=== PATIENT | female | born 1950 | race Caucasian/White ===

== ENCOUNTER → 2016-11-14 | Outpatient (CLI) | payer OTHER ==
--- NOTE | 2016-11-14 12:40 | CTL ---
EXAMINATION TYPE: CT Low Dose Lung DATE OF EXAM ORDERED: 11/14/2016 12:22 PM COMPARISON: None HISTORY: . Low Dose CT Lung Screening CT DLP: 60.[address] CTDI: 1.5 mGy IV CONTRAST USED: None. SCREENING VISIT: First visit COMPARISON: None. TECHNIQUE: Low dose computed tomography scan was performed through the chest at 1 millimeter thick se ctions and reconstructed images in the coronal plane at [address] DIAGNOSTIC QUALITY: Satisfactory FINDINGS: LUNG NODULES: There is a 5.5 mm partially solid nodule right upper lobe medially image 56. There is a lso a calcified nodule right upper lobe posteriorly image 75. Within the left lung there is a single nodule identified which is solid and measures 5.8 mm left lower lobe image 273. LUNGS: COPD: Severity: None Fibrosis: Severity:None Lymph nodes: None Right and left basilar scarring is noted. RIGHT PLEURAL SPACE: Effusion: None Calcification: None Thickening: None Pneumothorax: None LEFT PLEURAL SPACE: Effusion: None Calcification: None Thickening: None Pneumothorax: None HEART: Heart Size: Mildly enlarged Coronary calcification: Mild Pericardial effusion: None OTHER FINDINGS: Upper abdomen: No significant abnormality Bony thorax: Degenerative changes Supraclavicular region: No significant abnormalityOther: No significant abnormalityI IMPRESSION: Benign FOLLOW UP CT CHEST RECOMMENDATION: Follow-up screening in one year CT LUNG RAD: LUNG RAD CATEGORY category 2
== END | disposition home or self-care (01) ==
LOC: RADCTMAIN 11:50
PROVIDERS: ATTEND Family Medicine
DX: Z12.2 Encounter for screening for malignant neoplasm of respiratory organs (principal); Z87.891 Personal history of nicotine dependence

== ENCOUNTER 2017-04-27 09:55 | Observation (INO) | payer OTHER ==
[2017-04-27] MEDS ORDERED: ASPIRIN 325 MG TAB PO ONE (11:08)
[2017-04-27] MEDS ORDERED: IV FLUID CONTINUATION 750 ML IV ONE (11:08)
[2017-04-27] MEDS ORDERED: MIDAZOLAM 2 MG/2 ML VIAL IVP ONE (11:49)
[2017-04-27] MEDS: fentaNYL (PF) 50 MCG/ML 2 ML AMP IV ONE ×2 (11:49→12:00)
[2017-04-27] MEDS ORDERED: methylPREDNISolone SOD SUCCI 125 MG/2 ML VIAL IV ONE (11:50)
[2017-04-27] MEDS ORDERED: LIDOCAINE 2% INJ 20 MG/ML SQ ONE (11:56)
[2017-04-27] MEDS ORDERED: IOHEXOL 350 MG/ML 125ML BOTTLE INJ ONE (12:07)
[2017-04-27] MEDS ORDERED: RX INFO: IV CONTRAST WAS GIVEN 1 EACH MISC MISCELLANE PRN (12:21)
--- NOTE | 2017-04-27 12:27 | P.PCN ---
Date of Procedure: 04/27/17 Preoperative Diagnosis: Pains and left arm pain. Questionable stress test Postoperative Diagnosis: Normal coronary arteries Procedure(s) Performed: Left heart catheterization without left ventriculography Description of Procedure: HISTORY: This is a 66-year-old female who was admitted to [facility] because of recurrent chest pains. Patient had a nuclear stress test recently which was officially reported as showing TID which was significant with some fixed defects in anterior and inferior wall. Her chest pains. However appear to be clinically atypical and cardiac enzymes and EKGs were negative. Patient was advised to symptomatic medical therapy but is admitted to the hospital again with chest pain. A cardiac catheterization is suggested for definitive diagnosis. CONSENT:I have discussed the risks, benefits and alternative therapies for the above-mentioned procedure and for both sedation/analgesia as well as necessary blood product administration, if indicated, as they pertain to this patient. The patient has indicated understanding and acceptance of the risks and procedures discussed. [] PROCEDURE: Patient was brought to the lab in a fasting state. Patient was given some IV sedation. The right groin is infiltrated with lidocaine and right femoral artery was entered using Seldinger technique. A 6-Malay catheter was left in place and selective coronary arteriography and left ventriculography was performed. Patient tolerated the procedure well. Femoral angiogram was performed . Manual compression was recommended because of small size of the vessels. No immediate complications were noted and patient was transferred to [facility] in a stable condition Conscious Sedation: Versed : 1 mg Fentanyl : 75 g Duration : 20 minutes HEMODYNAMICS: Aortic pressure is about 130/70. Left ankle end-diastolic pressure is about 8-10. There was no gradient across the aortic valve SELECTIVE CORONARY ARTERIOGRAPHY: LEFT MAIN: Normal length and patent THE LEFT ANTERIOR DESCENDING CORONARY ARTERY: . Fairly caliber vessel giving rise to 2 diagonal and several septal branches. The LAD and its branches are free of occlusive disease THE LEFT CIRCUMFLEX AND IS CORONARY ARTERY: . This is a moderate caliber vessel giving rise good-sized OM branch. The circumflex and its branches are free of occlusive disease THE RIGHT CORONARY ARTERY: . This is a moderate caliber vessel and codominant and appears to be free of occlusive disease LEFT VENTRICULOGRAPHY: . Not performed FINAL IMPRESSION: , Normal coronary arteries PLAN: Maximum medical therapy and risk factor modification PROGNOSIS: . Good
[2017-04-27] MEDS ORDERED: SODIUM CHLORIDE 0.9% 1,000 ML IV SCH (12:30)
[2017-04-27] MEDS ORDERED: LIDOCAINE 5% PATCH TOPICAL SCH (13:45)
[2017-04-27 16:01] VITALS: BP 118/70; PULSE 78; RESP 18; TEMP 98.6
[2017-04-27] MEDS ORDERED: KETOROLAC 30 MG/ML 1 ML VIAL IVP ONE (18:00)
[2017-04-27] MEDS ORDERED: LORazepam 1 MG TAB PO ONE (18:00)
[2017-04-27 19:56] LABS: Glucose,Whole Blood 160 mg/dL (75-99)
== END 2017-04-27 20:17 | disposition home or self-care (01) ==
LOC: 6SEL 11:01 → INTOOBSV 11:01 → 6SEL 14:29
PROVIDERS: ADMIT Family Medicine; ATTEND Family Medicine
DX: R07.89 Other chest pain (principal); K55.1 Chronic vascular disorders of intestine; Q23.2 Congenital mitral stenosis; M79.602 Pain in left arm; F32.9 Major depressive disorder, single episode, unspecified; M79.7 Fibromyalgia; F41.1 Generalized anxiety disorder; F17.200 Nicotine dependence, unspecified, uncomplicated; J30.2 Other seasonal allergic rhinitis; Z90.49 Acquired absence of other specified parts of digestive tract; Z90.710 Acquired absence of both cervix and uterus; Z88.6 Allergy status to analgesic agent; Z88.0 Allergy status to penicillin; Z88.8 Allergy status to other drugs, medicaments and biological substances
CPT/HCPCS: 99152; 93458; G0379; G0378; C1894; C1769; J2001; J2250; J2930; J3010; J1885; Q9967

== ENCOUNTER → 2017-10-29 | Outpatient (CLI) | payer MEDICARE, OTHER ==
[2017-10-25 10:46] VITALS: BMI 23.1
[2017-10-29 14:06] VITALS: BP 131/82; PULSE 86; RESP 16
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
== END | disposition home or self-care (01) ==
LOC: PNWHC3 12:20
PROVIDERS: ATTEND Specialist
DX: G89.29 Other chronic pain (principal); M54.5 Low back pain; M51.36 Other intervertebral disc degeneration, lumbar region; M46.1 Sacroiliitis, not elsewhere classified; M46.86 Other specified inflammatory spondylopathies, lumbar region; M79.7 Fibromyalgia; J30.1 Allergic rhinitis due to pollen; K21.9 Gastro-esophageal reflux disease without esophagitis; Z90.710 Acquired absence of both cervix and uterus; Z98.890 Other specified postprocedural states; Z87.891 Personal history of nicotine dependence; Z79.82 Long term (current) use of aspirin; Z79.1 Long term (current) use of non-steroidal anti-inflammatories (NSAID); Z79.899 Other long term (current) drug therapy; Z79.891 Long term (current) use of opiate analgesic; Z88.5 Allergy status to narcotic agent; Z88.0 Allergy status to penicillin; Z88.8 Allergy status to other drugs, medicaments and biological substances; Z77.120 Contact with and (suspected) exposure to mold (toxic); Z91.018 Allergy to other foods; Z91.041 Radiographic dye allergy status; Z90.49 Acquired absence of other specified parts of digestive tract
CPT/HCPCS: 99211

== ENCOUNTER → 2017-10-29 | Outpatient (CLI) | payer MEDICARE, OTHER ==
[2017-10-29 12:34] LABS: Basophils % (A) 0 %; Eosinophils # (A) 1.3 k/uL (0-0.7); Eosinophils % (A) 16 %; HCT 40.8 % (34.0-46.0); HGB 13.9 gm/dL (11.4-16.0); Lymphocytes # (A) 3.1 k/uL (1.0-4.8); Lymphocytes % (A) 37 %; MCH 32.4 pg (25.0-35.0); MCHC 34.1 g/dL (31.0-37.0); Mean Platelet Volume 7.3; Monocytes # (A) 0.4 k/uL (0-1.0); Monocytes % (A) 5 %; Neutrophils # (A) 3.3 k/uL (1.3-7.7); Neutrophils % (A) 40 %; Platelet Count 254 k/uL (150-450); RBC 4.29 m/uL (3.80-5.40); RDW 13.7 % (11.5-15.5); WBC 8.3 k/uL (3.8-10.6)
[2017-10-29 12:43] LABS: ALT 17 U/L (9-52); AST 16 U/L (14-36); Alkaline Phosphatase 96 U/L (38-126); Anion Gap 13 mmol/L; Bilirubin, Delta 0.3 mg/dL (0.0-0.2); Blood Urea Nitrogen 14 mg/dL (7-17); Carbon Dioxide 25 mmol/L (22-30); Chloride 106 mmol/L (98-107); Potassium 4.5 mmol/L (3.5-5.1); Sodium 144 mmol/L (137-145); Total Bilirubin 0.3 mg/dL (0.2-1.3)
[2017-10-29 12:59] LABS: T4, Free (Free Thyroxine) 0.91 ng/dL (0.78-2.19)
== END | disposition home or self-care (01) ==
LOC: LABWHC1 11:51
PROVIDERS: ATTEND Nurse Practitioner Family
DX: Z51.81 Encounter for therapeutic drug level monitoring (principal); Z79.899 Other long term (current) drug therapy
CPT/HCPCS: 36415; 80051; 80076; 82565; 84439; 84443; 84520; 85025

== ENCOUNTER 2017-12-07 06:58 | Day surgery (SDC) | payer MEDICARE, OTHER ==
[2017-12-04 16:56] VITALS: BMI 22.6
[~2017-12-07 06:58] MED LIST: LACTATED RINGERS 1,000 ML IV SCH; LIDOCAINE 1% 20 ML VIAL (10MG/ML) FOR IV START INTRADERMA PRN
[2017-12-07 07:40] VITALS: TEMP 98.5
[2017-12-07] MEDS ORDERED: ONDANSETRON 4 MG/2 ML VIAL IVP ONE (08:18)
[2017-12-07] MEDS ORDERED: MIDAZOLAM 2 MG/2 ML VIAL IVP ONE (08:19)
[2017-12-07] MEDS ORDERED: LIDOCAINE 1% INJ 10MG/ML (20 ML MDV) ONE (08:46)
[2017-12-07] MEDS ORDERED: PROPOFOL 10 MG/ML 20 ML VIAL IV ONE (08:46)
--- NOTE | 2017-12-07 08:49 | P.GSHP ---
History of Present Illness H&P Date: 12/07/17 Chief Complaint: Screening Patient here today for colonoscopy. Last colonoscopy about 5 years ago. She says she had polyps in the past. No family history of colon cancer. She has chronic history with intermittent diarrhea and constipation. Past Medical History Past Medical History: Chest Pain / Angina, Fibromyalgia, GERD/Reflux, Osteoarthritis (OA) Additional Past Medical History / Comment(s): "PALPITATIONS,DIVERTICULITIS,IBS, "SUPERIOR MESENTARY ARTERY SYNDROME",MS, LT EYE MAC DEGENERATION, ASTHMA CHILD, VIT D DEFICIENCY, MIGRAINES, OSTEOPOROSIS, PSORIASES ON BOTTOM OF FEET, SEASONAL ALLERGIES, PULMONARY NODULES JUST RECENTLY FOUND History of Any Multi-Drug Resistant Organisms: None Reported Past Surgical History: Appendectomy, Breast Surgery, Cholecystectomy, Heart Catheterization, Hysterectomy Additional Past Surgical History / Comment(s): LT BREAST BX-NEG, COLONOSCOPY/ POLYPECTOMY-BENIGN, EGD AND 04-27-17 HEART CATH. Past Anesthesia/Blood Transfusion Reactions: Motion Sickness, Postoperative Nausea & Vomiting (PONV) Additional Past Anesthesia/Blood Transfusion Reaction / Comment(s): CLAUSTROPHOBIA Smoking Status: Former smoker - Past Family History Mother Family Medical History: Congestive Heart Failure (CHF) Additional Family Medical History / Comment(s): MURMUR Father Family Medical History: Myocardial Infarction ([place]) Medications and Allergies Home Medications Medication Instructions Recorded Confirmed Type ARIPiprazole [Abilify] 2 mg PO HS 04/27/17 12/04/17 History Amitriptyline HCl [Elavil] 75 mg PO HS 04/27/17 12/04/17 History Ibuprofen [Motrin] 300 mg PO Q8HR PRN 04/27/17 12/07/17 History LORazepam [Ativan] 1 mg PO TID 04/27/17 12/04/17 History Loratadine [Claritin] 10 mg PO DAILY 04/27/17 12/04/17 History Aspirin EC [Ecotrin Low Dose] 81 mg PO DAILY 10/25/17 12/04/17 History Pantoprazole Sodium [Protonix] 20 mg PO DAILY 10/25/17 12/04/17 History diphenhydrAMINE [Benadryl] 25 mg PO DAILY PRN 10/25/17 12/07/17 History Allergies Allergy/AdvReac Type Severity Reaction Status Date / Time acetaminophen [From Vicodin] Allergy Rash/Hives Verified 12/07/17 07:28 banana Allergy Rash/Hives Verified 12/07/17 07:28 codeine Allergy Nausea & Verified 12/07/17 07:28 Vomiting, Rash/Hives grass pollen Allergy Unknown Verified 12/07/17 07:28 hydrocodone [From Vicodin] Allergy Rash/Hives Verified 12/07/17 07:28 hydromorphone [From Dilaudid] Allergy Rash/Hives Verified 12/07/17 07:28 Iodinated Contrast- Oral and Allergy Anaphylaxis Verified 12/07/17 07:28 IV Dye Iodine and Iodide Containing Allergy GI BLEEDING Verified 12/07/17 07:28 Produc mold Allergy Rash/Hives Verified 12/07/17 07:28 morphine Allergy Rash/Hives Verified 12/07/17 07:28 Penicillins Allergy Rash/Hives Verified 12/07/17 07:28 prednisone Allergy Rash/Hives Verified 12/07/17 07:28 ragweed pollen Allergy Rash/Hives Verified 12/07/17 07:28 tree and shrub pollen Allergy Rash/Hives Verified 12/07/17 07:28 Surgical - Exam Vital Signs Temp Pulse Resp BP Pulse Ox 98.5 F 97 18 144/66 100 12/07/17 07:24 12/07/17 07:24 12/07/17 07:24 12/07/17 07:24 12/07/17 07:24 Physical exam: General: Well-developed, well-nourished HEENT: Normocephalic, sclerae nonicteric Abdomen: Nontender, nondistended Extremities: No edema Neuro: Alert and oriented Assessment and Plan (1) Colon cancer screening Narrative/Plan: Will proceed with colonoscopy at this time. Current Visit: Yes Status: Acute Code(s): Z12.11 - ENCOUNTER FOR SCREENING FOR MALIGNANT NEOPLASM OF COLON SNOMED Code(s): 206045579
--- NOTE | 2017-12-07 09:05 | P.PCN ---
Date of Procedure: 12/07/17 Procedure(s) Performed: PREOPERATIVE DIAGNOSIS: Colon cancer screening, history of polyps POSTOPERATIVE DIAGNOSIS: Normal exam PROCEDURE: Colonoscopy ANESTHESIA: MAC SURGEON: Yan Young M.D. SPECIMENS: None ENDOSCOPIC PROCEDURE: The patient was placed on the endoscopy table in the left decubitus position. The Olympus colonoscope was inserted into the anus and passed under direct visualization to the base of the cecum. The appendiceal orifice was visualized. From that point the scope was slowly withdrawn inspecting all surfaces carefully. There were no neoplastic inflammatory or polypoid lesions throughout the cecum, ascending, transverse, descending, sigmoid and rectum. There was no diverticulosis noted. Digital rectal examination was normal. The patient was taken to the recovery room in stable condition per anesthesia guidelines. RECOMMENDATIONS: Increase fiber. Follow-up colonoscopy 5 years
[2017-12-07 09:10] VITALS: RESP 16
[2017-12-07 09:36] VITALS: BP 137/69; PULSE 74
== END 2017-12-07 09:53 | disposition home or self-care (01) ==
LOC: ORWHC2ENDO 06:58
PROVIDERS: ATTEND Surgery
DX: Z12.11 Encounter for screening for malignant neoplasm of colon (principal); M19.90 Unspecified osteoarthritis, unspecified site; M79.7 Fibromyalgia; K21.9 Gastro-esophageal reflux disease without esophagitis; K58.0 Irritable bowel syndrome with diarrhea; J45.909 Unspecified asthma, uncomplicated; Z79.82 Long term (current) use of aspirin; Z87.891 Personal history of nicotine dependence; Z88.0 Allergy status to penicillin; Z88.5 Allergy status to narcotic agent; I25.2 Old myocardial infarction; I25.10 Atherosclerotic heart disease of native coronary artery without angina pectoris; L40.9 Psoriasis, unspecified; Z82.49 Family history of ischemic heart disease and other diseases of the circulatory system; Z79.899 Other long term (current) drug therapy; Z91.041 Radiographic dye allergy status; Z91.010 Allergy to peanuts; Z88.8 Allergy status to other drugs, medicaments and biological substances; Z90.49 Acquired absence of other specified parts of digestive tract; Z91.018 Allergy to other foods; Z91.048 Other nonmedicinal substance allergy status; Z91.09 Other allergy status, other than to drugs and biological substances
CPT/HCPCS: J2250; J2405; J2001; J2704; G0105; 45378

== ENCOUNTER → 2018-01-03 | Outpatient (CLI) | payer MEDICARE, OTHER ==
--- NOTE | 2018-01-07 11:05 | MM ---
Reason for exam: screening (asymptomatic). Last mammogram was performed 6 years and 8 months ago. History: Patient is postmenopausal. Benign excisional biopsy of the left breast, April 2005. Physical Findings: A clinical breast exam by your physician is recommended on an annual basis and results should be correlated with mammographic findings. MG 3D Screening Mammo W/Cad Bilateral CC and MLO view(s) were taken. Prior study comparison: November 03, 2016, mammogram, performed at [facility], [place]. May 10, 2011, bilateral digital screening mammo w/CAD. October 19, 2009, bilateral digital screening mammogram. The breast tissue is heterogeneously dense. This may lower the sensitivity of mammography. There are enlarging anterior depth right upper outer quadrants masses (x 2). No suspicious abnormality in the left breast. ASSESSMENT: Incomplete: need additional imaging evaluation, BI-RAD 0 RECOMMENDATION: Ultrasound of both breasts. (right upper outer quadrant and left at location of pain) [facility] will attempt to contact patient to return for ultrasound.
== END | disposition home or self-care (01) ==
LOC: RADMAMWWP 13:00
PROVIDERS: ATTEND Family Medicine
DX: Z12.31 Encounter for screening mammogram for malignant neoplasm of breast (principal)
CPT/HCPCS: 77063; 77067

== ENCOUNTER → 2018-01-09 | Outpatient (CLI) | payer MEDICARE, OTHER ==
--- NOTE | 2018-01-09 15:02 | P.PN ---
Progress Note - Text Progress Note Date: 01/09/18 Patient returns for followup for chronic back pain with radiation to thoracic and C-spine. Patient continues on only OTC medications for pain with some relief. Patient denies adverse drug effects from medications. Today, pt denies new-onset weakness, bowel/bladder incontinence, or any other signs or symptoms of cauda equina syndrome. There are no signs of acute intoxication, and no indications of medication diversion or overuse. In addition to above, 13-point review of systems is also negative for chest pain , shortness of breath, changes in vision, changes in hearing, new onset weakness , abdominal pain, diarrhea, extreme fatigue, malaise, fever, skin changes, homicidal or suicidal ideation, or bowel or bladder incontinence. Vital Signs: Reviewed in EMR Gen: WDWN, AAOx3, NAD HEENT: NCAT, EOMI, hearing grossly normal Pulm: resp unlabored Abd: soft, NT, ND Neck: supple, trachea midline ROM in flexion lumbar spine: reduced ROM in extension lumbar spine: reduced Lumbar paravertebral tenderness: + Facet loading: + bilateral SI joint tenderness: + L > R Garret's test: neg Straight leg raise: neg Imaging: Reviewed in EMR Assessment: 1. lumbar spondylosis without myelopathy 2. chronic pain syndrome Plan: 1. Explanation: Opioid and psychological risk scores were reviewed. Diagnoses , prognoses, and multiple treatment options including but not limited to physical therapy, interventional therapies, adjuvant medical therapies, narcotic medication therapies, and surgery were discussed with the patient and all questions were answered to the patient's satisfaction. 2. Opioid agreement: no opioids prescribed today 3. Counseling: The patient was counseled extensively on BODY MASS INDEX, EXERCISE. Specifically, the patient was instructed regarding the importance of weight control, and exercise in the context of both chronic pain and overall health. 4. Procedures: bilateral lumbar MBB L3-S1 5. Consultations: None 6. Investigations: MAPS queried and appropriate 7. Medications: none prescribed 8. Morphine equivalents per day prescribed: zero 9. Disposition: f/u for procedure as scheduled PQRS measures: 1-Patient's medications are documented in the chart. 2-Tobacco use is negative 3-Patient has not had a pneumococcal vaccine. 4-Advanced care planning discussed, patient unable to give. 5-Opioid contract NOT signed with the patient. 6-Pain positive, follow-up visit or procedure scheduled 7-Patient's blood pressure measured and documented, and patient will follow up with the primary care due to hypertension. 8-Patient's weight was measured, and body mass index ABOVE the normal limits, and counseling was done. Patient instructed to follow up with PCP. 9-Patient WAS NOT identified as an unhealthy alcohol user.
== END | disposition home or self-care (01) ==
LOC: PNWHC3 14:07
PROVIDERS: ATTEND Anesthesiology
DX: G89.4 Chronic pain syndrome (principal); M54.9 Dorsalgia, unspecified; M47.816 Spondylosis without myelopathy or radiculopathy, lumbar region; Z79.891 Long term (current) use of opiate analgesic
CPT/HCPCS: 99211

== ENCOUNTER → 2018-01-09 | Outpatient (CLI) | payer MEDICARE, OTHER ==
--- NOTE | 2018-01-10 10:57 | USB ---
Reason for exam: additional evaluation requested from abnormal screening. History: Patient is postmenopausal. Benign excisional biopsy of the left breast, April 2005. Physical Findings: Nurse did not find any significant physical abnormalities on exam. US Breast Workup Limited GIOVANNI Right limited breast ultrasound including focal area of concern, retroareolar and axilla demonstrates a 0.7 x 0.4 x 0.8cm cystic lesion at 10 o'clock corresponds to the more inferior mammographic finding. Left limited breast ultrasound including focal area of concern, retroareolar and axilla demonstrates no cystic or solid lesion seen. These results were verbally communicated with the patient and result sheet given to the patient on 01/09/18. ASSESSMENT: Benign, BI-RAD 2 RECOMMENDATION: Return to routine screening mammogram schedule for both breasts. Manage on a clinical basis with regard to left breast pain.
== END | disposition home or self-care (01) ==
LOC: RADUSWWP 15:08
PROVIDERS: ATTEND Family Medicine
DX: R92.8 Other abnormal and inconclusive findings on diagnostic imaging of breast (principal)

== ENCOUNTER 2018-01-21 09:04 | Day surgery (SDC) | payer MEDICARE, OTHER ==
[2018-01-15 17:03] VITALS: BMI 22.6
[~2018-01-21 09:04] MED LIST changes: -LIDOCAINE 1% 20 ML VIAL (10MG/ML) FOR IV START INTRADERMA PRN
[2018-01-21] MEDS ORDERED: LACTATED RINGERS 1,000 ML IV ONE (09:41)
[2018-01-21 09:48] VITALS: RESP 18; TEMP 98
[2018-01-21] MEDS ORDERED: LIDOCAINE 1% 20 ML VIAL (10MG/ML) FOR IV START INTRADERMA ONE (09:53)
--- NOTE | 2018-01-21 10:38 | P.PCN ---
Date of Procedure: 01/21/18 Surgeon: Declan Messer Description of Procedure: PREOPERATIVE DIAGNOSIS : Lumbar spondylosis with Facet Arthropathy without myelopathy POSTOPERATIVE DIAGNOSIS: same PROCEDURE: Diagnostic lumbar medial branch block with fluoroscopy at bilateral L4, L5, sacral ala ANESTHESIA: Local anesthetic; conscious sedation with 2 mg midazolam 100 g of fentanyl Surgeon: Declan Messer MD PROCEDURE INDICATION: Chronic low back pain secondary to Facet arthropathy unresponsive to conservative treatment. This is a pleasant 67-year-old woman with a history of bilateral intractable low back pain secondary to lumbar spondylosis. She presents today for her first diagnostic lumbar medial branch nerve block. PROCEDURE DESCRIPTION: the patient was seen and identified in the preop holding area , risks and benefits and possible complications of the procedure and alternative were discussed with the patient, and the patient agreed to proceed with the procedure and signed the consent IV was started and vital signs monitored during the procedure and fluoroscopy was used to maximize the benefit and accuracy of the needle placement, and sedation was given to decrease patient anxiety, patient was taken to the procedure room and placed in prone position vital signs monitored in the back prepped. Under strict sterile technique using a right oblique fluoroscopy ,the junction of the transverse process and the superior articulating process of the [] L3- 4 , L4- 5, and L5-S1 vertebra which corresponding to the fluoroscopy image of the eye of the Everette dog on the block side for the medial branches and subsequently , after local infiltration of skin and subcutaneous tissues with lidocaine 1% one mL at each level ,then one 25-gauge Quincke-type needles was placed at the junction of the base of the transverse process and the superior articular process at the appropriate level, and the needle was advanced until the periosteum contacted, needle placement confirmed with AP oblique and lateral view and after appropriate needle placement confirmed, and after negative aspiration, 0.5 mL of Marcaine 0.5% mixed with 40 mg depomedrol in divided doses was injected at each level and the needle subsequently removed []. At the end of the procedure and the needles removed and a bandage applied after the skin was cleaned the cleaning solution patient taken to recovery room in stable condition and monitors in the recovery room for 20-30 minutes and discharged home in stable condition after discharge criteria met and patient will follow up with the pain clinic in 2-4 weeks EBL: Minimal COMPLICATION: None.
[2018-01-21] MEDS ORDERED: IV FLUID CONTINUATION 1,000 ML IV ONE (10:48)
--- NOTE | 2018-01-21 11:54 | FL ---
Fluoroscopy INDICATION: Pain FINDINGS: Fluoroscopy time: 1 seconds. Images obtained: 1. IMPRESSIONS: 1. Documentation of fluoroscopy.
[2018-01-21] MEDS ORDERED: diphenhydrAMINE 50 MG/ML 1 ML VIAL IVP ONE (12:01)
[2018-01-21 12:08] VITALS: BP 133/82; PULSE 77
== END 2018-01-21 12:11 | disposition home or self-care (01) ==
LOC: ORPAIN 09:04
PROVIDERS: ATTEND Pain Medicine Pain Medicine
DX: M47.816 Spondylosis without myelopathy or radiculopathy, lumbar region (principal); G89.4 Chronic pain syndrome; Z79.899 Other long term (current) drug therapy
CPT/HCPCS: 64493; 64494; J2250; J1200; J1030; J3010

== ENCOUNTER 2018-02-05 08:52 | Day surgery (SDC) | payer MEDICARE, OTHER ==
[2018-01-31 09:00] VITALS: BMI 22.6
[2018-02-05 10:02] VITALS: RESP 18; TEMP 98.1
[2018-02-05] MEDS ORDERED: LIDOCAINE 1% 20 ML VIAL (10MG/ML) FOR IV START INTRADERMA ONE (10:03)
[2018-02-05] MEDS ORDERED: ONDANSETRON 4 MG/2 ML VIAL ONE (11:29)
[2018-02-05] MEDS ORDERED: ONDANSETRON 4 MG/2 ML VIAL IVP ONE (11:31)
--- NOTE | 2018-02-05 11:54 | P.PCN ---
Date of Procedure: 02/05/18 Procedure(s) Performed: PREOPERATIVE DIAGNOSIS :1-Lumbar spondylosis with Facet Arthropathy without myelopathy . 2- Lumber degenerative disc disease. 3-sacroiliitis POSTOPERATIVE DIAGNOSIS= same as preoperative diagnosis. PROCEDURE: Diagnostic bilateral L3 -4 , L4 -5 , and L5-S1 medial branch block under fluoroscopy ANESTHESIA: Local with 1% lidocaine 6 ml , moderate sedation with intravenous Versed 2 mg and Fentanyl 100 mcg. EBL: Minimal COMPLICATION: None. IV FLUIDS: 100 mL of normal saline. PROCEDURE INDICATION: Chronic low back pain secondary to Facet arthropathy unresponsive to conservative treatment. PROCEDURE DESCRIPTION: the patient was seen and identified in the preop holding area , risks and benefits and possible complications of the procedure and alternative were discussed with the patient, and the patient agreed to proceed with the procedure and signed the consent IV was started and vital signs monitored during the procedure and fluoroscopy was used to maximize the benefit and accuracy of the needle placement, and sedation was given to decrease patient anxiety, patient was taken to the procedure room and placed in prone position vital signs monitored in the back prepped with chlorhexidine X3 then under strict sterile technique using a right oblique fluoroscopy ,the junction of the transverse process and the superior articulating process of the right L3- 4 , L4- 5, and L5-S1 vertebra which corresponding to the fluoroscopy image of the eye of the Everette dog on the block side for the medial branches and subsequently , after local infiltration of skin and subcu tissuies with lidocaine 1% one mL at each level ,then 22- gauge Quincke-type needles , 3 needle was used , each one of them placed at the junction of the base of the transverse process and the superior articular process at the appropriate level, and the needle was advanced until the periosteum contacted, needle placement confirmed with AP oblique and lateral view and after appropriate needle placement confirmed, and after negative aspiration for heme and CSF and there was no paresthesia 1-1/2 mL of Marcaine 0.5% mixed with 40 mg Kenalog , then half mL injected at each level after negative aspiration the needle subsequently removed and the same procedure repeated for the left side at left side at L3-4, L4- 5 and L5-S1 levels. At the end of the procedure and the needles removed and a bandage applied after the skin was cleaned the cleaning solution patient taken to recovery room in stable condition and monitors in the recovery room for 20-30 minutes and discharged home in stable condition after discharge criteria met and patient will follow up with the pain clinic in 2-4 weeks
[2018-02-05] MEDS ORDERED: diphenhydrAMINE 50 MG/ML 1 ML VIAL IVP ONE (12:05)
[2018-02-05] MEDS ORDERED: IV FLUID CONTINUATION 1,000 ML IV ONE (12:16)
[2018-02-05 12:21] VITALS: BP 135/72; PULSE 77
--- NOTE | 2018-02-05 12:52 | FL ---
EXAMINATION TYPE: FL guided pain mgmt statistic DATE OF EXAM: 02/05/2018 CLINICAL HISTORY: Low back pain. TECHNIQUE: Fluoroscopy. COMPARISON: None. FINDINGS: Fluoroscopic guidance was provided during pain relief procedure performed by Dr. Flores . A total of 7 seconds of fluoroscopic time was utilized during the procedure and 4 spot images are acquired. Images acquired shows needle localization at multiple levels bilaterally in the lower lumb ar spine. IMPRESSION: As Above.
== END 2018-02-05 12:30 | disposition home or self-care (01) ==
LOC: ORPAIN 08:52
PROVIDERS: ATTEND Specialist
DX: G89.29 Other chronic pain (principal); M47.816 Spondylosis without myelopathy or radiculopathy, lumbar region; M51.36 Other intervertebral disc degeneration, lumbar region; M46.1 Sacroiliitis, not elsewhere classified; R00.2 Palpitations; J45.909 Unspecified asthma, uncomplicated; K21.9 Gastro-esophageal reflux disease without esophagitis
CPT/HCPCS: 64493; 64494; 64495; J2250; J3301; J2405; J3010; 99152

== ENCOUNTER → 2018-02-28 | Outpatient (CLI) | payer MEDICARE, OTHER ==
[2018-02-28 15:45] VITALS: BP 138/64; PULSE 86; RESP 16
--- NOTE | 2018-02-28 16:00 | P.PN ---
Subjective Progress Note Date: 02/28/18 This is a 67-year-old female with lower back pain with occasional radiation to the left knee and occasional numbness and tingling in the legs. The patient denies any bowel or bladder dysfunction or any weakness in the lower extremities. She had 75% of pain relief after the diagnostic medial branch blocks that she received. In addition to above, 13-point review of systems is also negative for chest pain , shortness of breath, changes in vision, changes in hearing, new onset weakness , abdominal pain, diarrhea, extreme fatigue, malaise, fever, skin changes, homicidal or suicidal ideation, or bowel or bladder incontinence. Vital Signs: Reviewed in EMR Gen: WDWN, AAOx3, NAD HEENT: NCAT, hearing grossly normal Pulm: resp unlabored Neck: supple, trachea midline ROM in flexion lumbar spine: reduced ROM in extension lumbar spine: reduced Lumbar paravertebral tenderness: + Facet loading: + bilateral Neuro exam of the lower extremities showed normal muscle strength and normal and symmetrical deep tendon reflexes. Straight leg raise: neg Imaging: Reviewed in EMR Assessment: 1. lumbar spondylosis without myelopathy 2. chronic pain syndrome Plan: 1. Explanation: Opioid and psychological risk scores were reviewed. Diagnoses , prognoses, and multiple treatment options including but not limited to physical therapy, interventional therapies, adjuvant medical therapies, narcotic medication therapies, and surgery were discussed with the patient and all questions were answered to the patient's satisfaction. 2. Opioid agreement: no opioids prescribed today 3. Counseling: The patient was counseled extensively on BODY MASS INDEX, EXERCISE. Specifically, the patient was instructed regarding the importance of weight control, and exercise in the context of both chronic pain and overall health. 4. Procedures: Left lumbar medial branch RFA for L3 4, L4-L5, and L5-S1 levels 5. Consultations: None 6. Investigations: MAPS queried and appropriate 7. Medications: none prescribed 8. Morphine equivalents per day prescribed: zero 9. Disposition: f/u for procedure as scheduled Objective - Vital Signs Vital signs: Vital Signs Temp Pulse 86 02/28/18 15:35 Resp 16 02/28/18 15:35 BP 138/64 02/28/18 15:35 Pulse Ox Intake & Output 02/27/18 02/28/18 02/28/18 18:59 06:59 18:59 Weight 63.503 kg
--- NOTE | 2018-02-28 16:28 | XR ---
EXAMINATION TYPE: XR abdomen 1V DATE OF EXAM: 02/28/2018 COMPARISON: 08/12/2013 INDICATION: Left lower quadrant pain TECHNIQUE: Single view abdomen supine view FINDINGS: There is a normal bowel gas pattern. Psoas margins are normal. No organomegaly is present. Cholecystectomy clips are present. Fecal debris is within the colon. IMPRESSION: 1. Unremarkable Abdomen
== END | disposition home or self-care (01) ==
LOC: PNWHC3 13:09
PROVIDERS: ATTEND Anesthesiology
DX: G89.4 Chronic pain syndrome (principal); M47.816 Spondylosis without myelopathy or radiculopathy, lumbar region; R10.32 Left lower quadrant pain
CPT/HCPCS: 74018; G0463; 99211

== ENCOUNTER → 2018-03-14 | Day surgery (SDC) | payer MEDICARE, OTHER ==
[2018-03-07 11:10] VITALS: BMI 22.6
[~2018-03-14] MED LIST changes: +IV FLUID CONTINUATION 1,000 ML IV ONE; +LIDOCAINE 1% 20 ML VIAL (10MG/ML) FOR IV START INTRADERMA ONE; +diphenhydrAMINE 50 MG/ML 1 ML VIAL IVP ONE
[2018-03-14 09:22] VITALS: TEMP 98.1
--- NOTE | 2018-03-14 10:29 | P.PCN ---
Date of Procedure: 03/14/18 Procedure(s) Performed: PREOPERATIVE DIAGNOSIS: 1-Lumbar Spondylosis with Facet Arthropathy without myelopathy. POSTOPERATIVE DIAGNOSIS: 1- Lumbar Spondylosis with Facet Arthropathy without myelopathy. PROCEDURES : Left Radiofrequency thermocoagulation, L3-L4, L4-L5, and L5-S1 medial branch, with fluoroscopic guidance ANESTHESIA: Moderate sedation with intravenous versed 2 mg and fentaneyl 50 mcg ,and local infiltration with Ropivacaine 0.5 % . EBL: Minimal PROCEDURE INDICATION: The patient with low back pain secondary to lumbar facet arthropathy who had more than 50% relief of her pain with previous diagnostic lumbar medial branch block with bupivacaine. PROCEDURE DESCRIPTION / TECHNIQUE: The patient was seen and identified in the preoperative area. Risks, benefits, complications, including but not limited to risk of infection ,bleeding , allergic reactions to the medications and no complete pain releife , and alternatives were discussed with the patient, the patient agreed to proceed with the procedure and signed the consent. IV was started. Vital signs remained stable throughout the procedure. Patient was taken to the OR and time out was completed. The patient was placed in the prone position on the procedure table. The lumber area was prepped and draped in the usual sterile fashion. . Vital signs were closely monitored during the procedure .IV sedation was used during the procedure to decrease patients anxiety. Using AP and then oblique fluoroscopy, the ``eye of the Everette dog corresponding to the connection between the superior and transverse articular processes of right L3, L4, and L5 were identified, marked, and localized with 1 % lidocaine. Subsequently, a [id number] radiofrequency cannula with a 10- mm active tip was advanced guided by fluoroscopy to each of the ``eyes of the Everette dog at Left L3, L4, and L5. Each site then underwent sensory testing at 50 Hz and 0 to 1 volt and motor testing at 2.5 Hz and 0 to 3 volt with local stimulation, but no radicular symptoms down the legs. Thereafter the left L3-4, L4-5, and L5-S1 sites underwent radiofrequency thermocoagulation at 80 degrees celsius for 90 seconds after injecting 0.5 ml of PF Ropivacaine 1%. then After the thermocoagulation done , 1 ml of the block solution containing Kenalog 40 mg and 3 ml of Ropivacaine 0.5% was injected at the Left L3-4 , L4-5 , and L5-S1, levels after negative aspiration of CSF and blood and with no paresthesias. Cannulas were retracted while injecting lidocaine 1% until the needle is out. At the end of the procedure, the skin was cleansed and bandages were applied. COMPLICATIONS: No acute complications. DISPOSITION / PLANS: The patient was placed in a supine position and transferred to the recovery area in a stable condition for observation and was discharged from the recovery room after meeting discharge criteria. Home discharge instructions given to the patient by the staff. The patient was reexamined prior to discharge. The patient will schedule a follow up in the clinic in 2-4 weeks.
[2018-03-14 10:59] VITALS: BP 158/81; PULSE 80; RESP 16
--- NOTE | 2018-03-14 11:24 | FL ---
EXAMINATION TYPE: FL guided pain mgmt statistic DATE OF EXAM: 03/14/2018 COMPARISON: NONE HISTORY: Back pain TECHNIQUE: Fluoroscopy. FINDINGS/IMPRESSION: Fluoroscopic guidance was provided during procedure performed by Dr. Burciaga. A total of 9 seconds of fluoroscopic time was utilized during the procedure and 3 spot images was ac quired demonstrating multilevel localization of the lumbosacral spine.
== END ==
LOC: ORPAIN 08:58
PROVIDERS: ATTEND Specialist
DX: M47.816 Spondylosis without myelopathy or radiculopathy, lumbar region (principal); I25.10 Atherosclerotic heart disease of native coronary artery without angina pectoris; K21.9 Gastro-esophageal reflux disease without esophagitis; J30.1 Allergic rhinitis due to pollen; Z88.6 Allergy status to analgesic agent; Z88.5 Allergy status to narcotic agent; Z91.018 Allergy to other foods
CPT/HCPCS: 64635; 64636; J2250; J1200; J3301; J3010; 99152

== ENCOUNTER 2018-04-02 09:13 | Day surgery (SDC) | payer MEDICARE, OTHER ==
[2018-03-28 10:07] VITALS: BMI 23.2
[~2018-04-02 09:13] MED LIST changes: -IV FLUID CONTINUATION 1,000 ML IV ONE; -LIDOCAINE 1% 20 ML VIAL (10MG/ML) FOR IV START INTRADERMA ONE; -diphenhydrAMINE 50 MG/ML 1 ML VIAL IVP ONE
[2018-04-02 09:33] VITALS: RESP 16; TEMP 97.7
[2018-04-02] MEDS ORDERED: ONDANSETRON 4 MG/2 ML VIAL ONE (09:52)
[2018-04-02] MEDS ORDERED: MIDAZOLAM 2 MG/2 ML VIAL ONE (09:52)
[2018-04-02] MEDS ORDERED: MIDAZOLAM 2 MG/2 ML VIAL IVP ONE (09:55)
[2018-04-02] MEDS ORDERED: ONDANSETRON 4 MG/2 ML VIAL IVP ONE (09:56)
--- NOTE | 2018-04-02 10:31 | P.PCN ---
Date of Procedure: 04/02/18 Procedure(s) Performed: PREOPERATIVE DIAGNOSIS: 1-Lumbar Spondylosis with Facet Arthropathy without myelopathy. POSTOPERATIVE DIAGNOSIS: 1- Lumbar Spondylosis with Facet Arthropathy without myelopathy. PROCEDURES : Right Radiofrequency thermocoagulation, L3-L4, L4-L5, and L5-S1 medial branch, with fluoroscopic guidance ANESTHESIA: Moderate sedation with intravenous fentaneyl 100 mcg ,and local infiltration with Ropivacaine 0.5 % . EBL: Minimal PROCEDURE INDICATION: The patient with low back pain secondary to lumbar facet arthropathy who had more than 50% relief of her pain with previous diagnostic lumbar medial branch block with bupivacaine. PROCEDURE DESCRIPTION / TECHNIQUE: The patient was seen and identified in the preoperative area. Risks, benefits, complications, including but not limited to risk of infection ,bleeding , allergic reactions to the medications and no complete pain releife , and alternatives were discussed with the patient, the patient agreed to proceed with the procedure and signed the consent. IV was started. Vital signs remained stable throughout the procedure. Patient was taken to the OR and time out was completed. The patient was placed in the prone position on the procedure table. The lumber area was prepped and draped in the usual sterile fashion. . Vital signs were closely monitored during the procedure .IV sedation was used during the procedure to decrease patients anxiety. Using AP and then oblique fluoroscopy, the ``eye of the Everette dog corresponding to the connection between the superior and transverse articular processes of right L3, L4, and L5 were identified, marked, and localized with 1 % lidocaine. Subsequently, a 18 -nm radiofrequency cannula with a 10- mm active tip was advanced guided by fluoroscopy to each of the ``eyes of the Everette dog at right L3, L4, and L5. Each site then underwent sensory testing at 50 Hz and 0 to 1 volt and motor testing at 2.5 Hz and 0 to 3 volt with local stimulation, but no radicular symptoms down the legs. Thereafter the Right L3-4, L4-5, and L5-S1 sites underwent radiofrequency thermocoagulation at 80 degrees celsius for 90 seconds after injecting 0.5 ml of PF Ropivacaine 1% .then After the thermocoagulation done , 1 ml of the block solution containing Kenalog 40 mg and 3 ml of Ropivacaine 0.5% was injected at the right L3-4 , L4-5 , and L5-S1, levels after negative aspiration of CSF and blood and with no paresthesias. Cannulas were retracted while injecting lidocaine 1% until the needle is out. at the end of the procedure, the skin was cleansed and bandages were applied. COMPLICATIONS: No acute complications. DISPOSITION / PLANS: The patient was placed in a supine position and transferred to the recovery area in a stable condition for observation and was discharged from the recovery room after meeting discharge criteria. Home discharge instructions given to the patient by the staff. The patient was reexamined prior to discharge. The patient will schedule a follow up in the clinic in 2-4 weeks.
[2018-04-02] MEDS ORDERED: IV FLUID CONTINUATION 1,000 ML IV ONE (10:38)
[2018-04-02 11:07] VITALS: BP 117/78; PULSE 90
--- NOTE | 2018-04-02 12:51 | FL ---
Fluoroscopy INDICATION: Pain FINDINGS: Fluoroscopy time: 14 seconds. Images obtained: 3. IMPRESSIONS: 1. Documentation of fluoroscopy.
== END 2018-04-02 11:35 | disposition home or self-care (01) ==
LOC: ORPAIN 09:13
PROVIDERS: ATTEND Specialist
DX: M47.816 Spondylosis without myelopathy or radiculopathy, lumbar region (principal); K21.9 Gastro-esophageal reflux disease without esophagitis; Z91.041 Radiographic dye allergy status; Z88.5 Allergy status to narcotic agent; Z91.048 Other nonmedicinal substance allergy status
CPT/HCPCS: 64636 ×2; 64635; J2250; J3301; J2405; J3010; 99152; 99153

== ENCOUNTER → 2018-05-22 | Outpatient (CLI) | payer MEDICARE, OTHER ==
--- NOTE | 2018-05-22 12:39 | CT ---
EXAMINATION TYPE: CT abdomen pelvis wo con DATE OF EXAM: 05/22/2018 COMPARISON: 10/31/2010 HISTORY: LLQ pain for [address] DLP: 417 mGycm Automated exposure control for dose reduction was used. TECHNIQUE: Helical acquisition of images was performed from the lung bases through the pelvis. FINDINGS: LUNG BASES: Pleural parenchymal scarring is seen at the lung bases. Previously seen 6 mm left basilar pulmonary nodule is obscured by atelectasis, however does not appear grossly enlarged in comparison to exam of 2010 and therefore is favored to be benign. Small central right breast mass measures 8 mm and was not seen in the given [id number] on the prior of 10/31/2010. This is thought to correspond t o the sonographic abnormality of a cyst on the exam of 01/09/2018. LIVER/GB: Focal area of hypoattenuation is seen in segment IVb of the liver near the fissure for the falciform ligament, most typically related to focal fatty infiltration. Gallbladder surgically absent . Remainder the liver is unremarkable. PANCREAS: No significant abnormality is seen. SPLEEN: Small splenules are noted adjacent to the [place] spleen. No spinal megaly. ADRENALS: No significant abnormality is seen. KIDNEYS: No nephrolithiasis or hydronephrosis. FREE AIR: No free air is visualized ADENOPATHY: No greater than 1 cm short axis lymph node is seen within the abdomen or pelvis. URINARY BLADDER: No significant abnormality is seen. OSSEOUS STRUCTURES: Minimal multilevel degenerative change. BOWEL: Moderate burden retained colonic stool is noted with the cecum being low-lying. This limits e valuation of the bowel as does lack of oral contrast. No dilated large or small bowel to suggest obst ruction. No pericolonic inflammatory fat stranding.. OTHER: Abdominal aorta is of normal course and caliber with mild atherosclerosis. IMPRESSION: MODERATE BURDEN RETAINED COLONIC STOOL AND FECAL STASIS WITHOUT EVIDENCE OF OBSTRUCTION. NO PERICOLON IC INFLAMMATORY CHANGE. 2. PROBABLE FOCAL FATTY INFILTRATION WITHIN THE LIVER. 3. RIGHT BREAST LESION IS THOUGHT TO CORRESPOND TO THE CYST SEEN ON PRIOR ULTRASOUND.
--- NOTE | 2018-05-22 13:36 | P.PAINPG ---
Subjective Progress Note Date: 05/22/18 This is a follow-up visit for this 67 years old female with a chronic history of severe midback pain and low back pain, she'll takewith myofascial pain syndrome thoracic area and lumbar degenerative disc disease and lumbar spondylosis, we have done radiofrequency ablation of the medial branch lumbar area patient reported that this helped her low back pain but she continued to have severe mid back pain, and some low back pain with radiation to the buttocks bilaterally, she denies any fever or night sweats she denies any motor or sensory deficits, but she reported the intensity of the pain interfering with her quality of life, recently she had open wound in the right leg, and she had superficial skin infection and she is currently on antibiotics , Objective - Exam Physical Examinations : 1-Constitutiona : Cooperative , not in acute distress . 2-HEENT : nech ; supple , no Lymphadenopathy , normal thyroid size . eyes : no ptosis , no icterus, no photophobia . ENT : normal of hearing , normal oropharynx , no Thrush . 3- Respiratory : Chest clear to auscultations Bilaterally , no wheezing , no Rhonchi . 4- Cardiovascular : regular rate and rhythem , S1 , S2 , no S3 , no S4. 5- Gastrointestinal : abdomen soft no tenderness , bowel sounds , no organomegally . 6- Genitourinary : Defferred . 7- neurologic : Cranial nerve II to XII intact , no focal neurological deffecit . 8-psychatric : alert , oriented X 3 , appropriate affect , intact judgment and insight . 9-Lymphatic : no Lymphadenopathy . 10- musculoskeltal : Thoracic spine Multiple trigger points identified in the thoracic paravertebral muscles. Lumber spine moter stegnth lower extremities , thigh and legs 5/5 Right side , 5/5 Left side deep tendon reflexes : normal Knee Jerk , normal ankle Jerk positive lumber facet Loading Test Range of motion of the lumbar spine Flexion 30 degrees, extension 10 degrees strait leg raising test , positive at degree Fabere test positive RT and positive LT . Scabs on the right lower extremity ( medial aspect of the mid leg) with some erythema Assessment and Plan Plan: Assessment and plan=1-myofascial pain syndrome thoracic paravertebral muscles 2-lumbar degenerative disc disease and lumbar spondylosis with facet arthropathy without myelopathy Continued to have low back pain and midback pain after the radiofrequency ablation of the medial branch lumbar area Recommend start patient on Motrin 600 mg every 8 hours when necessary for pain, restart patient on Zanaflex 4 mg every 8 hours when necessary , patient reported that she is going to go to [facility] to have physical therapy hopefully this will help her low back pain, patient will follow up in the pain clinic in 3-4 weeks for reevaluation for possible lumbar epidural steroid injections Blood pressure is significantly high and patient advised to follow up with her primary care regarding her blood pressure Time with Patient: Less than 30 PQRS Measure Charge Sheet Measure #130: Documentation of Current Meds in Medical Chart: Patient's medications documented in chart Measure #226: Tobacco Use: Screen & Cessation Intervention: Pt screened for tobacco use AND intervention given Measure #111: Pneumonia Vaccination: Pneumococcal vaccine administered or previously received Measure #47: Advance Care Plan: Advance care planning discussed & documented, pt chose/unable to give Measure #412: Opioid Treatment Agreement: No documentation of signed opioid treatment agreement Measure #408: Opioid Therapy Follow-up Evaluation: Patient had NO f/u eval minimum every 3 months during opioid therapy Measure #317: Preventitive Care & Scrn High Bld Press & F/U: Pre-hypertensive or hypertensive BP documented, pt will f/u with PCP Measure #128: Body Mass Index (BMI) Screening & Follow-up: BMI documented within normal parameters Measure #131: Pain Assessment & Follow-up: Pain positive & plan documented, Follow-up scheduled Measure #431: Unhealthy Alcohol Use Preventative Care & Scrn: Patient not identified as an unhealthy alcohol user PQRS Narrative: Smoking Status Current every day smoker Hx Alcohol Use (MH) No Home Medications: Ambulatory Orders ARIPiprazole [Abilify] 2 mg PO HS 04/27/17 Amitriptyline HCl [Elavil] 75 mg PO HS 04/27/17 Ibuprofen [Motrin] 300 mg PO Q8HR PRN 04/27/17 LORazepam [Ativan] 1 mg PO TID 04/27/17 Loratadine [Claritin] 10 mg PO DAILY 04/27/17 diphenhydrAMINE [Benadryl] 25 mg PO DAILY PRN 10/25/17 Omeprazole [PriLOSEC] 40 mg PO AC-BRKFST 01/31/18 Atorvastatin [Lipitor] 20 mg PO DAILY 03/28/18 Ergocalciferol [Vitamin D2] 50,000 unit PO Q7D 03/28/18 Controlled Substance Measures - Controlled Substance Measures Is patient prescribed a controlled substance at discharge?: No When asked, does pt state using other controlled substances?: No If prescribed controlled substance>3 days was MAPS reviewed?: No If Rx opioid, was Start Talking consent form obtained?: No If opioid is for acute pain is fill amount 7 days or less?: No Was information provided regarding opioid addiction?: No
== END | disposition home or self-care (01) ==
LOC: RADCTMAIN 10:39
PROVIDERS: ATTEND Surgery
DX: K57.32 Diverticulitis of large intestine without perforation or abscess without bleeding (principal)
CPT/HCPCS: 74176

== ENCOUNTER → 2018-05-22 | Outpatient (CLI) | payer MEDICARE, OTHER ==
[2018-05-22 12:28] VITALS: BP 138/83; PULSE 97; RESP 18
--- NOTE | 2018-05-22 13:36 | P.PAINPG ---
Subjective Progress Note Date: 05/22/18 This is a follow-up visit for this 67 years old female with a chronic history of severe midback pain and low back pain, she'll takewith myofascial pain syndrome thoracic area and lumbar degenerative disc disease and lumbar spondylosis, we have done radiofrequency ablation of the medial branch lumbar area patient reported that this helped her low back pain but she continued to have severe mid back pain, and some low back pain with radiation to the buttocks bilaterally, she denies any fever or night sweats she denies any motor or sensory deficits, but she reported the intensity of the pain interfering with her quality of life, recently she had open wound in the right leg, and she had superficial skin infection and she is currently on antibiotics , Objective - Exam Physical Examinations : 1-Constitutiona : Cooperative , not in acute distress . 2-HEENT : nech ; supple , no Lymphadenopathy , normal thyroid size . eyes : no ptosis , no icterus, no photophobia . ENT : normal of hearing , normal oropharynx , no Thrush . 3- Respiratory : Chest clear to auscultations Bilaterally , no wheezing , no Rhonchi . 4- Cardiovascular : regular rate and rhythem , S1 , S2 , no S3 , no S4. 5- Gastrointestinal : abdomen soft no tenderness , bowel sounds , no organomegally . 6- Genitourinary : Defferred . 7- neurologic : Cranial nerve II to XII intact , no focal neurological deffecit . 8-psychatric : alert , oriented X 3 , appropriate affect , intact judgment and insight . 9-Lymphatic : no Lymphadenopathy . 10- musculoskeltal : Thoracic spine Multiple trigger points identified in the thoracic paravertebral muscles. Lumber spine moter stegnth lower extremities , thigh and legs 5/5 Right side , 5/5 Left side deep tendon reflexes : normal Knee Jerk , normal ankle Jerk positive lumber facet Loading Test Range of motion of the lumbar spine Flexion 30 degrees, extension 10 degrees strait leg raising test , positive at degree Fabere test positive RT and positive LT . Scabs on the right lower extremity ( medial aspect of the mid leg) with some erythema Assessment and Plan Plan: Assessment and plan=1-myofascial pain syndrome thoracic paravertebral muscles 2-lumbar degenerative disc disease and lumbar spondylosis with facet arthropathy without myelopathy Continued to have low back pain and midback pain after the radiofrequency ablation of the medial branch lumbar area Recommend start patient on Motrin 600 mg every 8 hours when necessary for pain, restart patient on Zanaflex 4 mg every 8 hours when necessary , patient reported that she is going to go to [facility] to have physical therapy hopefully this will help her low back pain, patient will follow up in the pain clinic in 3-4 weeks for reevaluation for possible lumbar epidural steroid injections Blood pressure is significantly high and patient advised to follow up with her primary care regarding her blood pressure Time with Patient: Less than 30 PQRS Measure Charge Sheet Measure #130: Documentation of Current Meds in Medical Chart: Patient's medications documented in chart Measure #226: Tobacco Use: Screen & Cessation Intervention: Pt screened for tobacco use AND intervention given Measure #111: Pneumonia Vaccination: Pneumococcal vaccine administered or previously received Measure #47: Advance Care Plan: Advance care planning discussed & documented, pt chose/unable to give Measure #412: Opioid Treatment Agreement: No documentation of signed opioid treatment agreement Measure #408: Opioid Therapy Follow-up Evaluation: Patient had NO f/u eval minimum every 3 months during opioid therapy Measure #317: Preventitive Care & Scrn High Bld Press & F/U: Pre-hypertensive or hypertensive BP documented, pt will f/u with PCP Measure #128: Body Mass Index (BMI) Screening & Follow-up: BMI documented within normal parameters Measure #131: Pain Assessment & Follow-up: Pain positive & plan documented, Follow-up scheduled Measure #431: Unhealthy Alcohol Use Preventative Care & Scrn: Patient not identified as an unhealthy alcohol user PQRS Narrative: Smoking Status Current every day smoker Hx Alcohol Use (MH) No Home Medications: Ambulatory Orders ARIPiprazole [Abilify] 2 mg PO HS 04/27/17 Amitriptyline HCl [Elavil] 75 mg PO HS 04/27/17 Ibuprofen [Motrin] 300 mg PO Q8HR PRN 04/27/17 LORazepam [Ativan] 1 mg PO TID 04/27/17 Loratadine [Claritin] 10 mg PO DAILY 04/27/17 Omeprazole [PriLOSEC] 20 mg PO [id number] 01/31/18 Atorvastatin [Lipitor] 20 mg PO DAILY 03/28/18 Ergocalciferol [Vitamin D2] 50,000 unit PO Q7D 03/28/18 tiZANidine HCL [Zanaflex] 4 mg PO DAILY 05/27/18 Controlled Substance Measures - Controlled Substance Measures Is patient prescribed a controlled substance at discharge?: No When asked, does pt state using other controlled substances?: No If prescribed controlled substance>3 days was MAPS reviewed?: No If Rx opioid, was Start Talking consent form obtained?: No If opioid is for acute pain is fill amount 7 days or less?: No Was information provided regarding opioid addiction?: No
== END | disposition home or self-care (01) ==
LOC: PNWHC3 10:59
PROVIDERS: ATTEND Specialist
DX: M51.36 Other intervertebral disc degeneration, lumbar region (principal); M54.5 Low back pain; M47.816 Spondylosis without myelopathy or radiculopathy, lumbar region
CPT/HCPCS: 99211

== ENCOUNTER 2018-05-31 10:49 | Day surgery (SDC) | payer MEDICARE, OTHER ==
[2018-05-31 11:19] VITALS: RESP 16; TEMP 98.5
[2018-05-31] MEDS ORDERED: LIDOCAINE 1% 20 ML VIAL (10MG/ML) FOR IV START INTRADERMA ONE (11:23)
[2018-05-31] MEDS ORDERED: ONDANSETRON 4 MG/2 ML VIAL IVP ONE (11:27)
[2018-05-31] MEDS ORDERED: LIDOCAINE 1% INJ 10MG/ML (20 ML MDV) ONE (12:02)
[2018-05-31] MEDS ORDERED: PROPOFOL 10 MG/ML 20 ML VIAL IV ONE (12:02)
--- NOTE | 2018-05-31 12:50 | P.PCN ---
Date of Procedure: 05/31/18 Procedure(s) Performed: Preoperative Dx: Abdominal pain Postoperative Dx: Mild gastritis Procedure: EGD with Bx Anesthesia: Sedation Endoscopist: Dr. Young Specimens: Antrum Endoscopic Procedure: The patient was on the endoscopy table in the left decubitus position. The Olympus gastroscope was inserted into the oropharynx and passed under direct visualization to the region of the third portion of the duodenum. From that point the scope was slowly withdrawn inspecting all surfaces carefully. There were no neoplastic inflammatory or polypoid lesions throughout the duodenum. The pylorus was widely patent. The stomach was carefully inspected. There was was gastritis present. A biopsy of the antrum took place to rule out H. pylori. Retroflexion revealed a normal hiatus. The esophagus was then carefully examined. There were no neoplastic inflammatory or polypoid lesions throughout the visualized esophagus. The patient was then taken to the recovery room in stable condition per anesthesia guidelines. Recommendations: Await biopsy results. Continue antiacid therapy.
[2018-05-31 13:10] VITALS: BP 122/60; PULSE 79
== END 2018-05-31 13:35 | disposition home or self-care (01) ==
LOC: ORWHC2ENDO 10:49
PROVIDERS: ATTEND Surgery
DX: K29.50 Unspecified chronic gastritis without bleeding (principal); Z91.041 Radiographic dye allergy status; Z88.5 Allergy status to narcotic agent; Z91.018 Allergy to other foods; Z79.899 Other long term (current) drug therapy; F41.9 Anxiety disorder, unspecified; F32.9 Major depressive disorder, single episode, unspecified; F17.200 Nicotine dependence, unspecified, uncomplicated; I10 Essential (primary) hypertension; E78.5 Hyperlipidemia, unspecified; J45.909 Unspecified asthma, uncomplicated; H35.30 Unspecified macular degeneration; M79.7 Fibromyalgia; F39 Unspecified mood [affective] disorder; Z79.1 Long term (current) use of non-steroidal anti-inflammatories (NSAID)
CPT/HCPCS: 88305; 43239; J2405; J2001; J2704

== ENCOUNTER → 2018-10-02 | Outpatient (CLI) | payer MEDICARE, OTHER ==
[2018-10-02 13:09] VITALS: BP 142/71; PULSE 92; RESP 16
--- NOTE | 2018-10-02 13:26 | P.PN ---
Subjective Progress Note Date: 10/02/18 This is a follow-up visit for this 68 years old female with a chronic history of severe midback pain and low back pain, she is diagnosed with myofascial pain syndrome thoracic area and lumbar degenerative disc disease, and lumbar spondylosis, we have done radiofrequency ablation of the medial branch lumbar area : 6 months ago patient reported that this helped her low back pain , currently she is complaining of severe low back pain, and also she had severe midback pain , she denies any fever or night sweats she denies any motor or sensory deficits , but she reported the intensity of the pain interfering with her quality of life, Physical Examinations : 1-Constitutiona : Cooperative , not in acute distress . 2-HEENT : nech ; supple , no Lymphadenopathy , normal thyroid size . eyes : no ptosis , no icterus, no photophobia . 3- Respiratory : Chest clear to auscultations Bilaterally , no wheezing , no Rhonchi . 4- Cardiovascular : regular rate and rhythem , S1 , S2 , no S3 , no S4. 5- Gastrointestinal : abdomen soft no tenderness , bowel sounds , no organomegally . 6- Genitourinary : Defferred . 7- neurologic : Cranial nerve II to XII intact , no focal neurological deffecit . 8-psychatric : alert , oriented X 3 , appropriate affect , intact judgment and insight . 9-Lymphatic : no Lymphadenopathy . 10- musculoskeltal : Thoracic spine Multiple trigger points identified in the thoracic paravertebral muscles. Lumber spine moter stegnth lower extremities , thigh and legs 5/5 Right side , 5/5 Left side deep tendon reflexes : normal Knee Jerk , normal ankle Jerk positive lumber facet Loading Test Range of motion of the lumbar spine Flexion 30 degrees, extension 10 degrees strait leg raising test , positive at degree Fabere test positive RT and positive LT . Severe tenderness over the sacroiliac joints bilaterally Assessment and plan=1-myofascial pain syndrome thoracic paravertebral muscles 2-lumbar degenerative disc disease ,and lumbar spondylosis with facet arthropathy without myelopathy. Patient currently is on Zanaflex 4 mg daily, she should continue on the same medication and also patient could benefit from physical therapy she already scheduled to see a physical therapy, hopefully this will help her mid back pain, also patient could benefit from repeat radiofrequency ablation medial branch lumbar area at L3 4, L4 5, L5-S1 , we do the left side first then right-sided later PQRS Measure Charge Sheet Measure #130: Documentation of Current Meds in Medical Chart: Patient's medications documented in chart Measure #226: Tobacco Use: Screen & Cessation Intervention: Pt screened for tobacco use AND intervention given Measure #111: Pneumonia Vaccination: Pneumococcal vaccine administered or previously received Measure #47: Advance Care Plan: Advance care planning discussed & documented, pt chose/unable to give Measure #412: Opioid Treatment Agreement: No documentation of signed opioid treatment agreement Measure #408: Opioid Therapy Follow-up Evaluation: Patient had NO f/u eval minimum every 3 months during opioid therapy Measure #317: Preventitive Care & Scrn High Bld Press & F/U: Pre-hypertensive or hypertensive BP documented, pt will f/u with PCP Measure #128: Body Mass Index (BMI) Screening & Follow-up: BMI documented within normal parameters Measure #131: Pain Assessment & Follow-up: Pain positive & plan documented, Follow-up scheduled Measure #431: Unhealthy Alcohol Use Preventative Care & Scrn: Patient not identified as an unhealthy alcohol user PQRS Narrative: Objective - Vital Signs Vital signs: Vital Signs Temp Pulse 92 10/02/18 13:02 Resp 16 10/02/18 13:02 BP 142/71 10/02/18 13:02 Pulse Ox 99 10/02/18 13:02 Intake & Output 10/01/18 10/02/18 10/02/18 18:59 06:59 18:59 Weight 68.039 kg
== END ==
LOC: PNWHC3 12:49
PROVIDERS: ATTEND Specialist
DX: M51.36 Other intervertebral disc degeneration, lumbar region (principal); M47.816 Spondylosis without myelopathy or radiculopathy, lumbar region; M46.96 Unspecified inflammatory spondylopathy, lumbar region; M79.18 Myalgia, other site; Z79.899 Other long term (current) drug therapy
CPT/HCPCS: 99211

== ENCOUNTER → 2019-03-11 | Outpatient (CLI) | payer MEDICARE, OTHER ==
[2019-03-11 13:35] VITALS: BP 119/81; PULSE 90; RESP 16
--- NOTE | 2019-03-11 19:10 | P.PAINPG ---
Subjective Progress Note Date: 03/11/19 This is a follow-up visit for this 68 years old female, with chronic history of severe low back pain patient diagnosed with lumbar degenerative disc disease and lumbar spondylosis with lumbar facet arthropathy, previously we have done radiofrequency ablation of the medial branch lumbar area with good relief, but patient reported that yesterday she was helping her To Move the Furniture at Home, and while she was lifting up a couch, she started having severe low back pain, localized mainly in the left side, and patient had to go to the emergency room at [facility], and she had computed tomography scan of the lumbar spine done but we don't have any report available, and patient reported that the intensity of the pain interfering with her ability to ambulate, and intensity of the pain increases with any activities especially walking or changing position, she denies any change in the bowel movement or urination she denies any fever or night sweats, the intensity of the pain 8/10 increased to 10 over 10 with any activity Objective - Vital Signs Vital signs: Vital Signs Temp Pulse 90 03/11/19 13:30 Resp 16 03/11/19 13:30 BP 119/81 03/11/19 13:30 Pulse Ox 99 03/11/19 13:30 Intake & Output 03/11/19 03/11/19 03/12/19 06:59 18:59 06:59 Weight 67.132 kg - Exam Physical Examinations : -Constitutiona : Cooperative , not in acute distress . -HEENT : nech : supple , no Lymphadenopathy , normal thyroid size . eyes : no ptosis , no icterus, no photophobia . ENT : normal of hearing , normal oropharynx , no Thrush . - Respiratory : Chest clear to auscultations Bilaterally , no wheez ing , no Rhonchi . - Cardiovascula : regular rate and rhythem , S1 , S2 , no S3 , no S4. - Gastrointestina : abdomen soft no tenderness , bowel sounds , no organomegally . - Genitourinary : Defferred . - neurologic : Cranial nerve II to XII intact , no focal neurological deffecit . -psychatric : alert , oriented X 3 , appropriate affect , intact judgment and insight . -Lymphatic : no Lymphadenopathy . - musculoskeltal : Lumber spine moter stegnth lower extremities ,thigh and legs 4/5 Right side , 4/5 Left side deep tendon reflexes : normal Knee Jerk , normal ankle Jerk positive lumber facet Loading Test Trigger point of the dye within the left-sided lumbar paravertebral muscles Range of motion of the lumbar spine Flexion 30 degrees, extension 10 degrees strait leg raising test , positive at 30 degree hien test positive RT and positive LT . tenderness over the Sacroiliac joint on the R and L sides Assessment and Plan Assessment: Assessment and plan=1-acute on chronic low back pain secondary to lumbar spondylosis with lumbar facet arthropathy and lumbar degenerative disc disease, patient had acute symptoms of severe low back pain after lifting furniture, the clinical findings support the patient's pain most likely secondary to lumbar herniated disc disease, and patient had also myofascial pain syndrome lumbar area, patient could benefit from lumbar epidural steroid injection at L4-L5 levels and at the same time she could benefit also from trigger point injections left-sided lumbar paravertebral muscles, patient should continue to use her current medication and she could benefit from muscle relaxant she already had a prescription for Zanaflex 4 mg every 8 hours when necessary she should continue this medication Time with Patient: Less than 30 PQRS Measure Charge Sheet Measure #130: Documentation of Current Meds in Medical Chart: Patient's medications documented in chart Measure #226: Tobacco Use: Screen & Cessation Intervention: Pt screened for tobacco use AND intervention given Measure #111: Pneumonia Vaccination: Pneumococcal vaccine administered or pre viously received Measure #47: Advance Care Plan: Advance care planning discussed & documented, pt chose/unable to give Measure #412: Opioid Treatment Agreement: No documentation of signed opioid treatment agreement Measure #408: Opioid Therapy Follow-up Evaluation: Patient had NO f/u eval minimum every 3 months during opioid therapy Measure #317: Preventitive Care & Scrn High Bld Press & F/U: Normal blood pressure, f/u not required Measure #128: Body Mass Index (BMI) Screening & Follow-up: BMI documented within normal parameters Measure #131: Pain Assessment & Follow-up: Pain positive & plan documented, Follow-up scheduled Measure #431: Unhealthy Alcohol Use Preventative Care & Scrn: Patient not identified as an unhealthy alcohol user PQRS Narrative: Smoking Status Current every day smoker Blood Pressure 119/81 Pain Intensity [Bilateral 10 Lower Back] Scale Used Numeric (1 - 10) Hx Alcohol Use (MH) No Home Medications: Ambulatory Orders ARIPiprazole [Abilify] 2 mg PO HS 04/27/17 Amitriptyline HCl [Elavil] 75 mg PO HS 04/27/17 Ibuprofen [Motrin] 600 mg PO Q8HR PRN 04/27/17 LORazepam [Ativan] 1 mg PO TID 04/27/17 Loratadine [Claritin] 10 mg PO DAILY 04/27/17 Atorvastatin [Lipitor] 20 mg PO DAILY 03/28/18 Ergocalciferol [Vitamin D2] 50,000 unit PO Q7D 03/28/18 Controlled Substance Measures - Controlled Substance Measures Is patient prescribed a controlled substance at discharge?: No
== END | disposition home or self-care (01) ==
LOC: PNWHC3 12:36
PROVIDERS: ATTEND Specialist
DX: G89.29 Other chronic pain (principal); M51.36 Other intervertebral disc degeneration, lumbar region; M47.816 Spondylosis without myelopathy or radiculopathy, lumbar region; M46.96 Unspecified inflammatory spondylopathy, lumbar region; F17.200 Nicotine dependence, unspecified, uncomplicated; Z98.890 Other specified postprocedural states; Z79.899 Other long term (current) drug therapy
CPT/HCPCS: 99211

== ENCOUNTER 2019-03-17 09:20 | Day surgery (SDC) | payer MEDICARE, OTHER ==
[2019-03-12 17:22] VITALS: BMI 23.8
[2019-03-17 09:44] VITALS: RESP 16; TEMP 98.9
[2019-03-17] MEDS ORDERED: LIDOCAINE 1% 20 ML VIAL (10MG/ML) FOR IV START INTRADERMA ONE (09:52)
--- NOTE | 2019-03-17 10:34 | P.PCN ---
Date of Procedure: 03/17/19 Procedure(s) Performed: PREOPERATIVE DIAGNOSIS: lumbar radicular pain POSTOPERATIVE DIAGNOSIS: Same PROCEDURE Lumbar epidural steroid injection under fluoroscopic guidance at the L4-L5 level. ANESTHESIA: Local with 1% lidocaine 3 ml;. Sedation with only presented EBL: Minimal PROCEDURE INDICATION: Radicular pain.. PROCEDURE DESCRIPTION / TECHNIQUE: The patient was seen and identified in the preoperative area. Risks, benefits, complications including but not limited to infections ,bleeding ,allergic reaction to the medications ,nerve damage and not complete pain relief , and alternatives were discussed with the patient. The patient agreed to proceed with the procedure and signed the consent. IV was started, and vital signs were stable. Patient was taken to the OR and time out was completed. The patient was placed in the prone position on procedure table and a pillow was placed under the abdomen to reduce lumbar lordosis. The lumbosacral area was prepped and draped in the usual sterile fashion. The patient was closely monitored during the procedure. Conscious sedation was used during the procedure to decrease patients anxiety. Vital signs was monitored during the entire procedure. Using anterior-posterior fluoroscopy, the L4-L5 interlaminar space was identified and the skin over this site was marked and then infiltrated with 1% lidocaine subcutaneously. Subsequently, a 20-gauge Tuohy epidural needle was inserted and advanced toward the epidural space using the loss of resistance technique and guided by AP and lateral fluoroscopy. The correct needle position in the epidural space was verified. After negative aspiration, a 5 cc solution containing 80 mg depomedrol, 2 cc PFNS, and 2cc 1% lidocaine was injected. The needle was withdrawn intact, skin was cleansed, and bandages were applied. COMPLICATIONS: None SECOND PROCEDURE: Trigger point injections left lumbar paraspinal muscle INDICATION: Myofascial Pain Procedure: Tender areas were identified. The skin was prepped with chloraprep. Then a 25 g needle was inserted into the lumbar paraspinals and a total of 10 cc fo .5% ropivicaine was injected DISPOSITION / PLANS: The patient was returned to the supine position and transferred to the recovery area in a stable condition for observation. There was no evidence of lower extremity motor or sensory deficit after the procedure. Patient was discharged from the recovery room after meeting discharge criteria. Home discharge instructions were given to the patient by the staff. Follow up plan: Clinic Comments: The patient does have a IV contrast ALLERGY, anaphylaxis. Thus no contrast was used. Furthermore the patient has had a recent fall and has a mild compression fracture. She will be followed up in clinic.
[2019-03-17 10:44] VITALS: BP 119/77; PULSE 88
[2019-03-17] MEDS ORDERED: IV FLUID CONTINUATION 1,000 ML IV ONE (10:44)
--- NOTE | 2019-03-17 11:58 | FL ---
Fluoroscopy HISTORY: Pain 3 seconds fluoroscopy time supplied to the referring clinician. 2 intraoperative C-arm images docume nt the procedure. See dictated report from anesthesia.
== END 2019-03-17 11:53 | disposition home or self-care (01) ==
LOC: ORPAIN 09:20
PROVIDERS: ATTEND Student in an Organized Health Care Education/Training Program
DX: M51.16 Intervertebral disc disorders with radiculopathy, lumbar region (principal); M47.26 Other spondylosis with radiculopathy, lumbar region; M79.18 Myalgia, other site; F17.200 Nicotine dependence, unspecified, uncomplicated; Z79.1 Long term (current) use of non-steroidal anti-inflammatories (NSAID); Z79.899 Other long term (current) drug therapy; Z91.041 Radiographic dye allergy status; Z88.5 Allergy status to narcotic agent
CPT/HCPCS: 62323; 20552; J2250; J1030; 99152

== ENCOUNTER → 2019-04-03 | Outpatient (CLI) | payer MEDICARE, OTHER ==
--- NOTE | 2019-04-08 11:22 | P.PAINPG ---
Subjective Progress Note Date: 04/03/19 This is a follow-up visit for this 68 year old female, with chronic history of severe low back pain patient diagnosed with lumbar degenerative disc disease and lumbar spondylosis with lumbar facet arthropathy and lumbar radiculopathy, recently she underwenta L4-5 epidural steroid injection on 03/17/2019, which has helped her low back pain radiating to bilateral legs. today she brings in her lumbar CT scan report from 03/10/2019 which shows minimal 5% compression fracture of L4 vertebral and mild posterior disc bulge at L4-5. today, her primary pain complaint is low back pain radiating to left buttock and left groin, rated 9/10. She also reports that she has been using a cane as she feels unsteady. She endorses generalized bilateral leg w She also endorses cramping of bilateral legs. In addition to above, 13-point review of systems is also negative for chest pain, shortness of breath, changes in vision, changes in hearing, new onset weakness, abdominal pain, diarrhea, extreme fatigue, malaise, fever, skin changes, homicidal or suicidal ideation, or bowel or bladder incontinence. Physical exam: Vital Signs: Reviewed in EMR GENERAL: Well appearing, in no acute distress PSYCH: Mood and affect is appropriate. Awake, alert, and oriented SKIN: Skin color, texture, turgor normal, no rashes or lesions HEENT: Normocephalic, atraumatic. EOM intact CV: No pedal edema RESP: Respirations are unlabored, no audible wheezing GI: Abdomen non-distended MUSCULOSKELETAL: Bilateral lower extremity strength is normal and symmetric. No atrophy or tone abnormalities are noted. Lumbar spine: Straight leg raising in the sitting position is negative for radicular pain. Tenderness to palpation over the lumbar spine and paraspinous muscles bilaterally. Negative for pain with facet loading and back extension/rotation. Buttocks: tenderness to palpation over the left PSIS, Marjan test is positive on the left, sacral thrust is positive for pain on the left, Gaenslen's test is positive on the left. Extremities: Peripheral joint ROM is full and pain free without obvious instability or laxity in all four extremities. No edema or skin discolorations noted. Gait: Gait is antalgic NEUR: Bilateral lower extremity coordination and muscle stretch reflexes are physiologic and symmetric. Negative clonus. No loss of sensation is noted. Cranial nerves are grossly intact. Assessment and Plan Assessment: Assessment and plan=1-acute on chronic low back pain secondary to Left sacroiliitis, L4 compression fracture, lumbar radiculopathy, lumbar spondylosis with lumbar facet arthropathy and lumbar degenerative disc disease, patient had acute symptoms of severe low back pain after lifting furniture, the clinical findings support the patient's pain most likely secondary to lumbar herniated disc disease and/or compression fracture. Patient had some benefit from lumbar epidural steroid injection. prescription today given for Mobic 7.5 mg daily Patient instructed to take magnesium was high at 400 mg [id number] for muscle spasms. Prescription given for Flexeril 5 mg daily, as Zanaflex was making her fatigued. patient instructed to take Tylenol 1 g every 8 hours scheduled to help with pain. we will schedule the patient for left SI joint injection to help with left low back pain. Follow-up: For above-mentioned procedure PQRS Measure Charge Sheet Measure #130: Documentation of Current Meds in Medical Chart: Patient's medications documented in chart Measure #226: Tobacco Use: Screen & Cessation Intervention: Pt screened for to bacco use AND intervention given Measure #111: Pneumonia Vaccination: Pneumococcal vaccine NOT administered or previously given Measure #47: Advance Care Plan: Advance care planning discussed & documented, pt chose/unable to give Measure #412: Opioid Treatment Agreement: No documentation of signed opioid treatment agreement Measure #317: Preventitive Care & Scrn High Bld Press & F/U: Normal blood pressure, f/u not required Measure #128: Body Mass Index (BMI) Screening & Follow-up: BMI documented within normal parameters Measure #131: Pain Assessment & Follow-up: Pain positive & plan documented, Follow-up scheduled Measure #431: Unhealthy Alcohol Use Preventative Care & Scrn: Patient not identified as an unhealthy alcohol user PQRS Narrative: Smoking Status Current every day smoker Pain Intensity [Left Buttock] 9 Scale Used Numeric (1 - 10) Hx Alcohol Use (MH) No Home Medications: Ambulatory Orders ARIPiprazole [Abilify] 2 mg PO HS 04/27/17 Amitriptyline HCl [Elavil] 75 mg PO HS 04/27/17 Ibuprofen [Motrin] 600 mg PO Q8HR PRN 04/27/17 LORazepam [Ativan] 1 mg PO TID 04/27/17 Loratadine [Claritin] 10 mg PO DAILY 04/27/17 Atorvastatin [Lipitor] 20 mg PO DAILY 03/28/18 Ergocalciferol [Vitamin D2] 50,000 unit PO Q7D 03/28/18 tiZANidine HCL [Zanaflex] 4 mg PO Q8H PRN 03/12/19 Controlled Substance Measures - Controlled Substance Measures Is patient prescribed a controlled substance at discharge?: No
== END | disposition home or self-care (01) ==
LOC: PNWHC3 13:42
PROVIDERS: ATTEND Anesthesiology
DX: G89.29 Other chronic pain (principal); M51.16 Intervertebral disc disorders with radiculopathy, lumbar region; M47.26 Other spondylosis with radiculopathy, lumbar region; M46.96 Unspecified inflammatory spondylopathy, lumbar region; M46.1 Sacroiliitis, not elsewhere classified; S32.040A Wedge compression fracture of fourth lumbar vertebra, initial encounter for closed fracture; Z79.1 Long term (current) use of non-steroidal anti-inflammatories (NSAID); Z79.899 Other long term (current) drug therapy; F17.200 Nicotine dependence, unspecified, uncomplicated
CPT/HCPCS: 99211

== ENCOUNTER 2019-04-09 09:46 | Day surgery (SDC) | payer MEDICARE, OTHER ==
[2019-04-09 10:18] VITALS: RESP 18; TEMP 989.9
[2019-04-09] MEDS: LACTATED RINGERS 1,000 ML IV SCH ×2 (10:32→10:34)
[2019-04-09] MEDS ORDERED: LIDOCAINE 1% 20 ML VIAL (10MG/ML) FOR IV START INTRADERMA ONE (10:32)
[2019-04-09] MEDS ORDERED: IV FLUID CONTINUATION 950 ML IV ONE (10:57)
[2019-04-09 11:19] VITALS: BP 102/69; PULSE 82
--- NOTE | 2019-04-09 11:23 | FL ---
EXAMINATION TYPE: FL guided pain mgmt statistic DATE OF EXAM: 04/09/2019 CLINICAL HISTORY: Low back pain. TECHNIQUE: Fluoroscopy. COMPARISON: None. FINDINGS: Fluoroscopic guidance was provided during pain relief procedure performed by Dr. Flores . A total of 1 seconds of fluoroscopic time was utilized during the procedure and 1 spot image was a cquired. Image acquired shows needle localization of a sacroiliac joint. IMPRESSION: As Above.
--- NOTE | 2019-04-09 12:01 | P.PCN ---
Date of Procedure: 04/09/19 Description of Procedure: Preoperative diagnoses: Left sacroilitis Postoperative diagnoses: Left sacroilitis. Procedure: Left sacroiliac joint steroid injection under fluoroscopic guidance. Surgeon: Declan Messer MD Anesthesia: IV sedation per hospital guidelines EBL: None Procedure indication: The patient had a history of severe chronic low back pain, diagnosed with left sacroiliitis unresponsive to conservative treatment. Procedure description: The patient was seen and identified in the preoperative holding area, risks and benefits and alternative of the procedure and possible complications discussed with the patient, and he agreed with the preceding, patient signed the consent, an IV was started, and vital signs were monitored and were stable throughout the procedure, patient was placed in the prone position or table and the lumbosacral area was prepped and draped with a sterile fashion, vital signs were closely monitored during the procedure, the fluoroscopy camera was placed in the contralateral oblique view on the left sacroiliac joint and the lower part of the joint was identified a 2 mL then a 25-gauge Quincke-type spinal needle advanced slowly under fluoroscopy and placed in the posterior and inferior border of the right sacroiliac joint, placement confirmed with AP and lateral view, and after appropriate needle placement confirmed and after negative aspiration for heme and CSF and there was , 3 ml of Marcaine 0.5% and 40 mg of Depo-Medrol injected after negative aspiration, no paresthesia during the injection, no resistance to injection, and the needle was removed. The entire same procedure was repeated for the left sacroiliac joint Patient tolerated the procedure well without any complication. The patient returned to supine position after the back was cleaned and a Band- Aid applied, the patient transported to recovery room in stable condition and he was monitored for 30 minutes before he was discharged home and then patient was reexamined before going home and patient was discharged in stable condition and patient will follow up with the pain clinic in a few weeks
== END 2019-04-09 11:32 | disposition home or self-care (01) ==
LOC: ORPAIN 09:46
PROVIDERS: ATTEND Pain Medicine Pain Medicine
DX: G89.29 Other chronic pain (principal); M46.1 Sacroiliitis, not elsewhere classified; Z88.5 Allergy status to narcotic agent; M47.26 Other spondylosis with radiculopathy, lumbar region; M51.16 Intervertebral disc disorders with radiculopathy, lumbar region; S32.049A Unspecified fracture of fourth lumbar vertebra, initial encounter for closed fracture; F17.200 Nicotine dependence, unspecified, uncomplicated; Z79.1 Long term (current) use of non-steroidal anti-inflammatories (NSAID); Z79.899 Other long term (current) drug therapy
CPT/HCPCS: J2250; J1030; G0260; 27096

== ENCOUNTER 2019-04-29 08:51 | Day surgery (SDC) | payer MEDICARE, OTHER ==
[2019-04-25 15:31] VITALS: BMI 23.7
[2019-04-29 09:16] VITALS: TEMP 98.6
[2019-04-29] MEDS ORDERED: LIDOCAINE 1% 20 ML VIAL (10MG/ML) FOR IV START INTRADERMA ONE (09:26)
[2019-04-29] MEDS ORDERED: ONDANSETRON 4 MG/2 ML VIAL IVP ONE (09:29)
[2019-04-29] MEDS ORDERED: ONDANSETRON 4 MG/2 ML VIAL ONE (09:29)
--- NOTE | 2019-04-29 09:46 | P.PCN ---
Date of Procedure: 04/29/19 Procedure(s) Performed: Procedure= Left sacral iliac joints steroid injection under fluoroscopy guidance (fluoroscopy image stored on file in the radiology Department ) Preoperative diagnosis= 1-left sacroiliitis 2-lumbar degenerative disc disease 3-lumbar facet arthropathy Postoperative diagnosis=1-left sacroiliitis 2-lumbar degenerative disc disease 3-lumbar facet arthropathy Complication = none Condition= stable Fluoroscopy time = seconds Anesthesia= moderate sedation with intravenous Versed 2 mg , and local infiltration with lidocaine 1% 3 mL Indication for the procedure= patient complaining of low back pain , examination was positive for severe tenderness over the sacroiliac joints bilaterally and patient diagnosed with sacroiliitis, for this reason he/ she was good candidate for sacroiliac joint steroid injection. Description of the procedure= procedure risk and benefits discussed with the patient, including but not limited, risk of infection and bleeding, and ALLERGIC reaction to the medication and not complete pain relief and patient agreed with the preceding patient taken to the operating room, placed in prone position or standard monitors applied to the patient then after induction of anesthesia back prepped with chlorhexidine 3 times , Then under strict sterile technique, I did the left sacroiliac joint the which was identified under fluoroscopy guidance been local infiltration of the skin and subcu interstitial with lidocaine 1% then 22-gauge Quincke Needle advanced slowly under fluoroscopy and placed in the left sacroiliac joint needle placement confirmed with AP and oblique and lateral view and after appropriate needle placement confirmed and after negative aspiration, or heme , then Ropivacaine 0.5% 3 mL, and 40 mg of Depo-Medrol mixed together and injected in the right sacroiliac joint after negative aspiration patient tolerated the procedure well without any complication.
[2019-04-29] MEDS ORDERED: IV FLUID CONTINUATION 750 ML IV ONE (09:50)
[2019-04-29 09:55] VITALS: RESP 18
[2019-04-29 10:06] VITALS: BP 115/64; PULSE 82
--- NOTE | 2019-04-29 10:06 | FL ---
Fluoroscopy INDICATION: Pain FINDINGS: Fluoroscopy time: 4 seconds. Images obtained: 1. IMPRESSIONS: 1. Documentation of fluoroscopy.
== END 2019-04-29 10:20 | disposition home or self-care (01) ==
LOC: ORPAIN 08:51
PROVIDERS: ATTEND Specialist
DX: M46.1 Sacroiliitis, not elsewhere classified (principal); M51.16 Intervertebral disc disorders with radiculopathy, lumbar region; M47.816 Spondylosis without myelopathy or radiculopathy, lumbar region; Z91.048 Other nonmedicinal substance allergy status
CPT/HCPCS: J2250; J1030; J2405; G0260; 27096

== ENCOUNTER → 2019-05-13 | Outpatient (CLI) | payer MEDICARE, OTHER ==
[2019-05-13 13:04] VITALS: BP 135/81; PULSE 89; RESP 16
--- NOTE | 2019-05-20 10:06 | P.PAINPG ---
Subjective Progress Note Date: 05/13/19 This is a follow-up visit for this 68 year old female, with chronic history of severe low back pain patient diagnosed with lumbar degenerative disc disease and lumbar spondylosis with lumbar facet arthropathy and lumbar radiculopathy, as well as left sacroiliitis recently she underwent a left SI joint injection on 04/09/2019 and 04/29/2019. She returns today for follow-up. She reports that this procedure provided her partial relief, the first procedure lasted about 4 days, second procedure also lasted about 4-5 days. Today, she is complaining of low back pain, radiating to left groin. Pain is worse with standing, bending, sitting and walking and better with lying down. Pain is described as throbbing, stabbing. She does report that her anxiety has been poorly controlled, attributing most of this to caring for her son who has several mental health issues and Tourette's disease. and has had to take Ativan for anxiety attacks. She is tearful during our interview today. She continues to smoke 1 pack per day. At her last visit, we had given her a prescription for Mobic, however this upset her stomach. She continues to take Tylenol and Flexeril for pain. In addition to above, 13-point review of systems is also negative for changes in vision, changes in hearing, new onset weakness, abdominal pain, diarrhea, extreme fatigue, malaise, fever, skin changes, homicidal or suicidal ideation, or bowel or bladder incontinence. She does endorse chest pain, sweating and nausea as well as shortness of breath with her anxiety attack, which improved with Ativan. She still reports some mild chest pain, and I advised her to seek attention in an urgent care facility regarding this. She does endorse constipation and night sweats. Physical exam: Vital Signs: Reviewed in EMR GENERAL: Well appearing, in no acute distress PSYCH: Mood and affect is appropriate. Awake, alert, and oriented SKIN: Skin color, texture, turgor normal, no rashes or lesions HEENT: Normocephalic, atraumatic. EOM intact CV: No pedal edema RESP: Respirations are unlabored, no audible wheezing GI: Abdomen non-distended MUSCULOSKELETAL: Bilateral lower extremity strength is normal and symmetric. No atrophy or tone abnormalities are noted. Lumbar spine: Straight leg raising in the sitting position is positive on the left side for radicular pain. Tenderness to palpation over the lumbar spine and paraspinous muscles bilaterally. Positive for pain with facet loading bilaterally. Buttocks: tenderness to palpation over the left PSIS, Marjan test is positive on the left, FADIR test positive on left Extremities: Peripheral joint ROM is full and pain free without obvious instability or laxity in all four extremities. No edema or skin discolorations noted. Gait: Gait is antalgic NEUR: Bilateral lower extremity coordination and muscle stretch reflexes are physiologic and symmetric. Negative clonus. No loss of sensation is noted. Cranial nerves are grossly intact. Imaging: lumbar CT scan report from 03/10/2019 which shows minimal 5% compression fracture of L4 vertebral and mild posterior disc bulge at L4-5. Assessment and Plan Assessment: Assessment and plan=1-acute on chronic low back pain secondary to Left sacroiliitis, L4 compression fracture, lumbar radiculopathy, lumbar spondylosis with lumbar facet arthropathy and lumbar degenerative disc disease. Today, I will order an MRI of the lumbar spine as well as left hip x-rays. Patient was instructed to continue Flexeril and Tylenol for pain She was given an exercise handout and instructed to perform low back exercises on a daily basis. Follow-up: Following MRI and x-ray. She was also instructed to seek care at an urgent care facility or emergency department for her chest pain. Given its mild nature, and association with anxiety attack, I did not see the need to send her urgently to the emergency room. PQRS Measure Charge Sheet Measure #130: Documentation of Current Meds in Medical Chart: Patient's medications documented in chart Measure #226: Tobacco Use: Screen & Cessation Intervention: Pt screened for tobacco use AND intervention given Measure #111: Pneumonia Vaccination: Pneumococcal vaccine NOT administered or previously given Measure #47: Advance Care Plan: Advance care planning discussed & documented, pt chose/unable to give Measure #412: Opioid Treatment Agreement: No documentation of signed opioid treatment agreement Measure #317: Preventitive Care & Scrn High Bld Press & F/U: Normal blood pressure, f/u not required Measure #128: Body Mass Index (BMI) Screening & Follow-up: BMI documented within normal parameters Measure #131: Pain Assessment & Follow-up: Pain positive & plan documented, Follow-up scheduled Measure #431: Unhealthy Alcohol Use Preventative Care & Scrn: Patient not identified as an unhealthy alcohol user PQRS Narrative: Smoking Status Current every day smoker Pain Intensity [Left Posterior 6 Shoulder] Pain Intensity [Left Lower 10 Back] Hx Alcohol Use (MH) No Home Medications: Ambulatory Orders ARIPiprazole [Abilify] 2 mg PO HS 04/27/17 Amitriptyline HCl [Elavil] 75 mg PO HS 04/27/17 Ibuprofen [Motrin] 600 mg PO Q8HR PRN 04/27/17 LORazepam [Ativan] 1 mg PO TID 04/27/17 Loratadine [Claritin] 10 mg PO DAILY 04/27/17 Atorvastatin [Lipitor] 20 mg PO DAILY 03/28/18 Ergocalciferol [Vitamin D2] 50,000 unit PO Q7D 03/28/18 Calcium Carbonate [Tums] 500 - 1,000 mg PO QID PRN 04/25/19 Fluorometholone 0.1% Ophth Kaylan [Fml] 1 drops RIGHT EYE TID 05/08/19 Controlled Substance Measures - Controlled Substance Measures Is patient prescribed a controlled substance at discharge?: No
== END | disposition home or self-care (01) ==
LOC: PNWHC3 12:06
PROVIDERS: ATTEND Anesthesiology
DX: G89.29 Other chronic pain (principal); M51.16 Intervertebral disc disorders with radiculopathy, lumbar region; M47.26 Other spondylosis with radiculopathy, lumbar region; M46.96 Unspecified inflammatory spondylopathy, lumbar region; M46.1 Sacroiliitis, not elsewhere classified; F41.9 Anxiety disorder, unspecified; F95.2 Tourette's disorder; M48.56XA Collapsed vertebra, not elsewhere classified, lumbar region, initial encounter for fracture; F17.210 Nicotine dependence, cigarettes, uncomplicated; Z79.899 Other long term (current) drug therapy
CPT/HCPCS: 99211

== ENCOUNTER → 2019-06-18 | Outpatient (CLI) | payer MEDICARE, OTHER ==
--- NOTE | 2019-06-18 15:07 | XR ---
EXAMINATION TYPE: XR Hip Complete LT DATE OF EXAM: 06/18/2019 CLINICAL HISTORY: Left hip pain TECHNIQUE: AP and frogleg views of the left hip are obtained. COMPARISON: None. FINDINGS: There is no acute fracture/dislocation evident in the left hip. Mild left femoral acetabu lar arthropathy is seen with acetabular roof sclerosis. The joint space in the left hip appears align ed. The overlying soft tissue appears unremarkable. IMPRESSION: There is no acute fracture or dislocation in the left hip. Mild left femoral acetabular arthropathy.
--- NOTE | 2019-06-18 16:35 | MR ---
EXAMINATION TYPE: MR lumbar spine wo con DATE OF EXAM: 06/18/2019 COMPARISON: CT abdomen and pelvis May 22, 2018 HISTORY: Lumbar radiculopathy. Left lumbar and groin pain. TECHNIQUE: Multiplanar, multisequence imaging of the lumbar spine is performed without IV contrast. FINDINGS: Sagittal images of the lumbar spine show alignment to remain satisfactory. New mild height loss or erosive change along the anterior-inferior L4 vertebra without suspicious osseous edema or di sc signal. Multilevel disc desiccation is present with mild disc space narrowing L3-L4 level otherwis e disc space heights are fairly well-maintained. The conus medullaris is normal in position and sign al ending inferior L1 level. The bone marrow signal intensity is within normal limits. Axial images show T12-L1, L1-L2, and L2-L3 levels all to appear within normal limits. Axial images at L3-L4 level show mild facet degenerative changes and ligamentum flavum hypertrophy wi th mild broad disc bulge, there is minimal effacement of the anterior and posterior lateral thecal sa c. Bilateral neural foramina are patent. Axial images at L4-L5 level shows moderate facet degenerative changes bilaterally. There is mild broa d disc bulge mildly effacing anterior thecal sac. There is mild bilateral inferior neural foraminal n arrowing. Axial images at the L5-S1 level show moderate right greater than left facet degenerative changes. The re is mild broad disc bulge. Spinal canal is preserved. Bilateral neural foramina are patent. No suspicious incidental retroperitoneal findings. IMPRESSION: Multilevel degenerative changes mid to lower lumbar spine most prominent at L4-L5 level a s detailed above but no significant finding is identified to account for patient's left-sided radicul opathy type symptoms.
== END | disposition home or self-care (01) ==
LOC: RADMRIMAIN 14:35
PROVIDERS: ATTEND Anesthesiology
DX: M47.26 Other spondylosis with radiculopathy, lumbar region (principal); M16.12 Unilateral primary osteoarthritis, left hip
CPT/HCPCS: 72148; 73502

== ENCOUNTER → 2019-06-30 | Outpatient (CLI) | payer MEDICARE, OTHER ==
[2019-06-30 14:12] VITALS: BP 125/82; PULSE 125; RESP 18
--- NOTE | 2019-07-03 10:06 | P.PAINPG ---
Subjective Progress Note Date: 06/30/19 This is a follow-up visit for this 68 year old female, with chronic history of severe low back pain patient diagnosed with lumbar degenerative disc disease and lumbar spondylosis with lumbar facet arthropathy and lumbar radiculopathy, as well as left sacroiliitis. At her last visit, should we ordered a lumbar MRI, which she had done and returns today for follow-up. Her pain is primarily located in the low back and radiating to left hip. Pain is rated as 8/10 at maximum and reduces to 4/10. Pain is worse with any sort of activity, better when she is off her feet. Pain is described as shooting, throbbing, burning. She continues to take Tylenol and Flexeril for pain. She does report a constellation of symptoms including 35 pound weight gain over 6 months, swelling/lump in the region of her thyroid gland, breast fullness which was not present before. I asked her to follow-up with her primary care physician regarding these complaints. In addition to above, 13-point review of systems is also negative for changes in vision, changes in hearing, new onset weakness, abdominal pain, diarrhea, fever, skin changes, homicidal or suicidal ideation, or bowel or bladder incontinence. She does endorse night sweats, reduced appetite, lack of sleep. Physical exam: Vital Signs: Reviewed in EMR GENERAL: Well appearing, in no acute distress PSYCH: Mood and affect is appropriate. Awake, alert, and oriented SKIN: Skin color, texture, turgor normal, no rashes or lesions HEENT: Normocephalic, atraumatic. EOM intact CV: No pedal edema RESP: Respirations are unlabored, no audible wheezing GI: Abdomen non-distended MUSCULOSKELETAL: Bilateral lower extremity strength is normal and symmetric. No atrophy or tone abnormalities are noted. Lumbar spine: Tenderness to palpation over the lumbar spine and paraspinous muscles on the left side. Positive for pain with facet loading the left side. Buttocks: tenderness to palpation over the left PSIS, Marjan test is positive on the left, FADIR test positive on left Extremities: Peripheral joint ROM is full and pain free without obvious in stability or laxity in all four extremities except the left hip. No edema or skin discolorations noted. Gait: Gait is antalgic NEUR: Bilateral lower extremity coordination and muscle stretch reflexes are physiologic and symmetric. Negative clonus. No loss of sensation is noted. Cranial nerves are grossly intact. Imaging: lumbar CT scan report from 03/10/2019 which shows minimal 5% compression fracture of L4 vertebral and mild posterior disc bulge at L4-5. MRI lumbar spine done on 06/18/2019 at [facility] shows mild height loss along the anterior inferior L4 vertebrae without suspicious edema or disc signal. Multilevel degenerative disc disease and facet arthropathy at L3-4, L4- 5, L5-S1. No significant spinal canal stenosis or neuroforaminal stenosis. Left sided x-ray of hip done on 06/18/2019 shows mild left femoral acetabular arthropathy. No acute fracture or dislocation. Assessment and Plan Assessment: Assessment and plan=1-acute on chronic low back pain secondary to Left sacroiliitis, L4 compression fracture, lumbar radiculopathy, lumbar spondylosis with lumbar facet arthropathy and lumbar degenerative disc disease. We will schedule left-sided L2, L3, L4, L5 medial branch blocks 2. A significant benefit from these procedure, she will likely benefit from left- sided lumbar radiofrequency ablation. Procedure was explained, questions were answered. In the future, she may require a left sided hip injection. Patient was instructed to continue Flexeril and Tylenol for pain Follow-up: For above-mentioned procedure She was instructed to have a discussion with her primary care physician regarding weight gain and breast fullness. PQRS Measure Charge Sheet Measure #130: Documentation of Current Meds in Medical Chart: Patient's medications documented in chart Measure #226: Tobacco Use: Screen & Cessation Intervention: Pt screened for tobacco use AND intervention given Measure #111: Pneumonia Vaccination: Pneumococcal vaccine NOT administered or previously given Measure #47: Advance Care Plan: Advance care planning discussed & documented, pt chose/unable to give Measure #412: Opioid Treatment Agreement: No documentation of signed opioid treatment agreement Measure #317: Preventitive Care & Scrn High Bld Press & F/U: Normal blood pressure, f/u not required Measure #128: Body Mass Index (BMI) Screening & Follow-up: BMI documented within normal parameters Measure #131: Pain Assessment & Follow-up: Pain positive & plan documented, Follow-up scheduled Measure #431: Unhealthy Alcohol Use Preventative Care & Scrn: Patient not identified as an unhealthy alcohol user Objective - Vital Signs Vital signs: Vital Signs Temp Pulse 125 H 06/30/19 14:03 Resp 18 06/30/19 14:03 BP 125/82 06/30/19 14:03 Pulse Ox 98 06/30/19 14:03 PQRS Measure Charge Sheet PQRS Narrative: Smoking Status Current every day smoker Blood Pressure 125/82 Pain Intensity [Left Hip] 8 Scale Used Numeric (1 - 10) Hx Alcohol Use (MH) No Home Medications: Ambulatory Orders ARIPiprazole [Abilify] 2 mg PO HS 04/27/17 Amitriptyline HCl [Elavil] 75 mg PO HS 04/27/17 LORazepam [Ativan] 1 mg PO TID 04/27/17 Loratadine [Claritin] 10 mg PO DAILY 04/27/17 Atorvastatin [Lipitor] 20 mg PO DAILY 03/28/18 Ergocalciferol [Vitamin D2] 50,000 unit PO MO 03/28/18 Calcium Carbonate [Tums] 500 - 1,000 mg PO QID PRN 04/25/19 Acetaminophen [Tylenol Extra Strength] 500 mg PO DIRECTED PRN 06/24/19 Methocarbamol [Robaxin-750] 750 mg PO TID PRN 06/30/19 Controlled Substance Measures - Controlled Substance Measures Is patient prescribed a controlled substance at discharge?: No
== END | disposition home or self-care (01) ==
LOC: PNWHC3 13:14
PROVIDERS: ATTEND Anesthesiology
DX: G89.29 Other chronic pain (principal); M51.16 Intervertebral disc disorders with radiculopathy, lumbar region; M47.26 Other spondylosis with radiculopathy, lumbar region; M46.96 Unspecified inflammatory spondylopathy, lumbar region; M46.1 Sacroiliitis, not elsewhere classified; S32.049A Unspecified fracture of fourth lumbar vertebra, initial encounter for closed fracture; F17.200 Nicotine dependence, unspecified, uncomplicated; Z79.899 Other long term (current) drug therapy
CPT/HCPCS: 99211

== ENCOUNTER → 2019-07-21 | Outpatient (CLI) | payer MEDICARE, OTHER ==
--- NOTE | 2019-07-21 15:47 | US ---
EXAMINATION TYPE: US st tissue neck DATE OF EXAM: 07/21/2019 COMPARISON: NONE CLINICAL HISTORY: 68-year-old female R22.0 Localized swelling. Patient states having neck swelling re cently but has gone away. Patient states she feels a "lump" on anterior left neck and feels it is mo re discretely when sitting. FINDINGS: Der[facility] [employer] [employer] notes: Area of concern scanned. No discrete masses, lesions or fluid collections seen. Patient was scanned supine and sitting. Contralateral images taken for comparison. IMPRESSION: Targeted scanning along the anterior left neck shows no discrete solid or cystic lesion. The finding can be followed clinically. If there is an enlarging palpable abnormality, the patient can be rescann ed.
== END | disposition home or self-care (01) ==
LOC: RADUSWWP 12:44
PROVIDERS: ATTEND Family Medicine
DX: R22.1 Localized swelling, mass and lump, neck (principal); R22.0 Localized swelling, mass and lump, head; Z88.1 Allergy status to other antibiotic agents; Z88.5 Allergy status to narcotic agent; Z91.041 Radiographic dye allergy status
CPT/HCPCS: 76536

== ENCOUNTER 2019-08-13 08:57 | Day surgery (SDC) | payer MEDICARE, OTHER ==
[2019-08-11 11:38] VITALS: BMI 23.3
[~2019-08-13 08:57] MED LIST changes: +BUPIVACAINE (PF) 0.5% 30 ML VIAL ONE; +MIDAZOLAM 2 MG/2 ML VIAL ONE
[2019-08-13 09:13] VITALS: RESP 16; TEMP 96.9
[2019-08-13] MEDS ORDERED: LIDOCAINE 1% 20 ML VIAL (10MG/ML) FOR IV START INTRADERMA ONE (09:18)
--- NOTE | 2019-08-13 09:57 | P.PCN ---
Date of Procedure: 08/13/19 Description of Procedure: DESCRIPTION OF PROCEDURE(S): PROCEDURE: Bilateral lumbar medial branch block L3-L4, L4-L5, L5-S1 with fluoroscopy PREOPERATIVE DIAGNOSIS : 1- Lumbar spondylosis with Facet Arthropathy without myelopathy . 2- Lumber degenerative disc disease POSTOPERATIVE DIAGNOSIS: 1- Lumbar spondylosis with Facet Arthropathy without myelopathy . 2- Lumber degenerative disc disease PROCEDURE: Diagnostic bilateral L3 -4 , L4 -5 , and L5-S1 medial branch block under fluoroscopy ANESTHESIA: IV sedation with Versed 1 mg COMPLICATION: None. IV FLUIDS: 100 mL of normal saline. PROCEDURE INDICATION: Chronic low back pain secondary to Facet arthropathy unresponsive to conservative treatment. PROCEDURE DESCRIPTION: the patient was seen and identified in the preop holding area , risks and benefits and possible complications of the procedure and alternative were discussed with the patient, and the patient agreed to proceed with the procedure and signed the consent IV was started and vital signs monitored during the procedure and fluoroscopy was used to maximize the benefit and accuracy of the needle placement, and sedation was given to decrease patient anxiety, patient was taken to the procedure room and placed in prone position vital signs monitored in the back prepped with chlorhexidine X3 then under strict sterile technique using a right oblique fluoroscopy ,the junction of the transverse process and the superior articulating process of the right L3- 4 , L4- 5, and L5-S1 vertebra which corresponding to the fluoroscopy image of the eye of the Everette dog on the block side for the medial branches and subsequently , a 25-gauge Quincke-type needle was used and each time placed at the junction of the base of the transverse process and the superior articular process at the appropriate level L3, L4, L5, S1 pedicle. The needle was advanced until the periosteum contacted, needle placement confirmed with AP oblique and lateral view and after appropriate needle placement confirmed, and after negative aspiration for heme and CSF and there was no paresthesia. One mL of 0.5% ropivacaine was then injected at each level. The needle subsequently removed and the same procedure repeated for the left side at left side at L3-4, L4- 5 and L5-S1 levels. At the end of the procedure and the needles removed and a bandage applied after the skin was cleaned the cleaning solution patient taken to recovery room in stable condition and monitors in the recovery room for 20-30 minutes and discharged home in stable condition after discharge criteria met and patient will return for repeat procedure in 2-4 weeks.
[2019-08-13] MEDS ORDERED: IV FLUID CONTINUATION 750 ML IV ONE (10:22)
[2019-08-13 10:24] VITALS: PULSE 75
[2019-08-13 10:48] VITALS: BP 121/64
--- NOTE | 2019-08-13 11:07 | FL ---
Fluoroscopy INDICATION: Pain FINDINGS: Fluoroscopy time: 25 seconds. Images obtained: 3. IMPRESSIONS: 1. Documentation of fluoroscopy.
--- NOTE | 2019-08-15 11:56 | CDI ---
Date: 08/15/19 CDS/Sap Data Architect Name: Ann Hernández Phone: If any questions, call Rula Quinones Qa Intern at [phone] Patient Name: Annette Bush Admit Date; 08/13/09 Discharge Date: 08/13/19 ATTENTION: The [facility] coding Staff appreciate your assistance in clarifying documentation. Please respond to the clarification below the line at the bottom and electronically sign. The [facility] coding Staff will review the response and follow up if needed. Please Note: Queries are made part of the Legal Health Record. If you have any questions, please contact the Qa Intern. Dear Dr. Perales, Please provide clarification as to the type of sedation provided. The procedure note states IV sedation with versed and there is nothing checked on the Pain Procedure Record under Anesthesia plan. Please clarify if moderate/conscious or MAC/unconscious sedation was provided the patient. Thank you for your kind consideration, MTDD
== END 2019-08-13 11:03 | disposition home or self-care (01) ==
LOC: ORPAIN 08:57
PROVIDERS: ATTEND Anesthesiology
DX: M47.816 Spondylosis without myelopathy or radiculopathy, lumbar region (principal); G89.29 Other chronic pain
CPT/HCPCS: 64493; 64494; 64495; J2250; 99152

== ENCOUNTER → 2019-08-13 | Outpatient (CLI) | payer MEDICARE, OTHER ==
--- NOTE | 2019-08-14 11:32 | MM ---
Reason for exam: clinical finding. Last mammogram was performed 1 year and 7 months ago. History: Patient is postmenopausal. Benign excisional biopsy of the left breast, April 2005. Physical Findings: Nurse did not find any significant physical abnormalities on exam. MG 3D Diag Mammo W/Cad GIOVANNI Bilateral CC and MLO view(s) were taken. Prior study comparison: January 03, 2018, bilateral MG 3d screening mammo w/cad. November 03, 2016, mammogram, performed at [facility]. Finding: There is a typically benign 6 mm equal density (isodense), oval mass located 3 cm from the nipple in the 12 o'clock position of the right breast decreased from prior exam. Breast tissue is symmetric and stable from prior. Breast size may be increased from 2018. These results were verbally communicated with the patient and result sheet given to the patient on 08/13/19. ASSESSMENT: Benign, BI-RAD 2 RECOMMENDATION: Routine screening mammogram of both breasts in 1 year. Manage on a clinical basis with regard to breast pain.
== END | disposition home or self-care (01) ==
LOC: RADMAMWWP 13:18
PROVIDERS: ATTEND Family Medicine
DX: N64.4 Mastodynia (principal)
CPT/HCPCS: 77066; G0279; 77062

== ENCOUNTER → 2019-09-02 | Outpatient (CLI) | payer MEDICARE, OTHER ==
--- NOTE | 2019-09-02 14:07 | CT ---
EXAMINATION TYPE: CT soft tissue neck wo con DATE OF EXAM: 09/02/2019 HISTORY: Swelling and burning sensation in the neck marked by BB COMPARISON: NONE CT DLP: 521 mGycm. Automated Exposure Control for Dose Reduction was Utilized. TECHNIQUE: CT scan of the neck is performed without IV contrast, axial images are obtained, coronal and sagittal reformatted images are reviewed. FINDINGS: Airway: No gross abnormality seen. Parotid/submandibular glands: No gross abnormality seen. Carotid/Vascular Structures: No significant calcified plaque carotid bulb level bilaterally Osseous Structures: Levoconvex scoliotic curvature centered mid thoracic spine is present. Other: Visualized brain shows mild age-related cerebral atrophy and chronic small vessel ischemic william nge. Metallic BB is placed at site of concern in swelling and burning sensation over the right thyroid mid to lower pole level axial image 46. Thyroid gland is overall normal in size and slightly heterogeneo us in appearance without definitive worrisome greater than 1 cm nodule. There is overlying external d raining vein at this level. No suspicious solid or cystic mass or fluid collection is noted. IMPRESSION: No suspicious lesion seen to account for patient symptoms of swelling and burning sensat ion. Patent airway noted.
--- NOTE | 2019-09-02 17:24 | BD ---
EXAMINATION TYPE: Axial Bone Density DATE OF EXAM: 09/02/2019 COMPARISON: 08/21/2003 CLINICAL HISTORY: 69-year-old female postmenopausal screening Height: 65 IN Weight: 158 LBS FRAX RISK QUESTIONS: Secondary Osteoporosis: 3. Menopause before 45: YES TOTAL HYST AGE 42 Current Tobacco Use: YES RISK FACTORS HISTORY OF: Spine Fracture: L4 FRACTURE 2019 Active: MODERATE Diet low in dairy products/other sources of calcium: YES Postmenopausal woman: TOTAL HYST AGE 42 MEDICATIONS: Additional Medications: ELAVIL, ABILIFY, ATIVAN, CHOLESTERL MED, CLARITIN, EXAM MEASUREMENTS: Bone mineral densitometry was performed using the Propeller System. L-SPINE FX 2019 AT L4 Bone mineral density about the R hip (g/cm2): 0.728 Bone mineral density about the L hip (g/cm2): 0.714 T Score values are as follows: -----R Neck: -2.2 -----L Neck: -2.3 -----R Total: -2.5 -----L Total: -2.7 Bone mineral density has: Decreased -11.2% since study of: 08/19/2003 Bone mineral density about the L Wrist (g/cm2): 0.499 T Score values are as follows: -----Dist. R+U: -4.0 -----Prox. R+U: -2.4 -----Radius total: -2.9 Bone mineral density BASELINE IMPRESSION: Osteoporosis (T Score less than -2.5). There is increased fracture risk and therapy is usually indicated based on age. Re-Screen 1-2 years. NOTE: T-SCORE=SD OF THE YOUNG ADULT MEAN.
== END | disposition home or self-care (01) ==
LOC: RADBDWWP 12:36
PROVIDERS: ATTEND Family Medicine
DX: M79.9 Soft tissue disorder, unspecified (principal); R22.1 Localized swelling, mass and lump, neck; M81.0 Age-related osteoporosis without current pathological fracture; E55.9 Vitamin D deficiency, unspecified; Z88.5 Allergy status to narcotic agent; Z88.8 Allergy status to other drugs, medicaments and biological substances; Z88.1 Allergy status to other antibiotic agents; Z91.041 Radiographic dye allergy status
CPT/HCPCS: 70490; 77080

== ENCOUNTER 2019-09-11 08:22 | Day surgery (SDC) | payer MEDICARE, OTHER ==
[2019-09-09 15:17] VITALS: BMI 26.6
[~2019-09-11 08:22] MED LIST changes: -BUPIVACAINE (PF) 0.5% 30 ML VIAL ONE; -LACTATED RINGERS 1,000 ML IV SCH; +LIDOCAINE 4% (PF) 5 ML AMP ONE
[2019-09-11] MEDS ORDERED: LACTATED RINGERS 1,000 ML IV SCH (08:36)
[2019-09-11 08:48] VITALS: RESP 18; TEMP 96.9
[2019-09-11] MEDS: LACTATED RINGERS 1,000 ML IV SCH ×2 (09:06→09:19)
[2019-09-11] MEDS ORDERED: LIDOCAINE 1% 20 ML VIAL (10MG/ML) FOR IV START INTRADERMA ONE (09:06)
--- NOTE | 2019-09-11 09:42 | P.PCN ---
Date of Procedure: 09/11/19 Procedure(s) Performed: PREOPERATIVE DIAGNOSIS : Lumbar spondylosis with Facet Arthropathy without myelopathy POSTOPERATIVE DIAGNOSIS: same PROCEDURE: Second Diagnostic lumbar medial branch block with fluoroscopy at L2, L3, L4, L5 [bilateral] which covers facets L3-4, L4-5 and L5-S1 ANESTHESIA: Local anesthetic; moderate IV sedation with Versed 2 mg, sedation time 17 minutes Fluoroscopy was used for the procedure and images were saved in the radiology portion of the chart. Surgeon: Oscar Lovell MD PROCEDURE INDICATION: Lumbar back pain without radiculopathy, not responsive to conservative management. PROCEDURE DESCRIPTION: the patient was seen and identified in the preop holding area , risks and benefits and possible complications of the procedure and alternatives were discussed with the patient, and the patient agreed to proceed with the procedure and signed the consent . IV was started , vital signs were monitored during the procedure and fluoroscopy was used to maximize the benefit and accuracy of the needle placement, and sedation was given to decrease patient anxiety. Patient was taken to the procedure room and placed in prone position. The lumbar region was prepped using chlorhexidineX-2. Under strict sterile technique using AP fluoroscopy the bilateral sacral ala were identified and using ipsilateral oblique fluoroscopy ,the junction of the transverse process and the superior articulating process of the L3, L4, L5 vertebra which corresponds to the fluoroscopy image of the eye of the Everette dog for the medial branches were identified. Subsequently, after local infiltration of skin with lidocaine 1% 0.2 mL at each level , a 25-gauge 3.5" Quincke-type needle was placed at the junction of the base of the transverse process and the superior articular process at the appropriate level as well as the sacral ala, and the needle was advanced until the periosteum contacted, needle placement confirmed with AP and oblique fluoroscopy, 0.5 mL of [lidocaine 4%] was injected at each level and the needle subsequently removed . I donated contrast dye was not used as patient is ALLERGIC to contrast dye. At the end of the procedure and the needles were removed and a bandage applied after the skin was cleaned. The patient was taken to recovery room in stable condition and monitors in the recovery room for 20-30 minutes and discharged home in stable condition after discharge criteria met and patient will follow up in clinic in 2 weeks EBL: Minimal COMPLICATION: None.
[2019-09-11] MEDS ORDERED: IV FLUID CONTINUATION 800 ML IV ONE (09:43)
[2019-09-11 10:10] VITALS: BP 105/66; PULSE 89
--- NOTE | 2019-09-11 11:08 | FL ---
EXAMINATION TYPE: FL guided pain mgmt statistic DATE OF EXAM: 09/11/2019 CLINICAL HISTORY: Low back pain. TECHNIQUE: Fluoroscopy. COMPARISON: None. FINDINGS: Fluoroscopic guidance was provided during pain relief procedure performed by Dr. Lovell. A t otal of 4 seconds of fluoroscopic time was utilized during the procedure and 3 spot images are acquir ed. Images acquired shows needle localization of the lumbar spine at multiple levels. IMPRESSION: As Above.
== END 2019-09-11 10:34 | disposition home or self-care (01) ==
LOC: ORPAIN 08:22
PROVIDERS: ATTEND Anesthesiology
DX: M47.816 Spondylosis without myelopathy or radiculopathy, lumbar region (principal); Z88.4 Allergy status to anesthetic agent
CPT/HCPCS: 64493; 64494; 64495; J2001; J2250; 99152

== ENCOUNTER → 2019-09-24 | Outpatient (CLI) | payer MEDICARE, OTHER ==
[2019-09-24 13:23] VITALS: BP 138/80; PULSE 70; RESP 16
--- NOTE | 2019-09-24 14:04 | P.PAINPG ---
Subjective Progress Note Date: 09/24/19 This is a follow-up visit for this 69 years old female, with chronic history of severe low back pain patient diagnosed with lumbar degenerative disc disease and lumbar spondylosis with lumbar facet arthropathy, left sacroiliitis and compression fracture of the lumbar spine, recently we have done diagnostic medial branch block lumbar area x2 and she had more than 70% improvement of her low back pain after the diagnostic medial branch block on 2 different occasions, her VAS before the first diagnostic block was 8/10 dropped to 2-3/10 after the block, the pain relief for short-term, likely she is complaining of severe low back pain more on the left side, and intensity of the pain increases with any a ctivities especially walking or changing position, she denies any change in the bowel movement or urination she denies any fever or night sweats, the intensity of the pain 8/10 increased to 10 over 10 with any activity Objective - Vital Signs Vital signs: Vital Signs Temp Pulse 70 09/24/19 13:17 Resp 16 09/24/19 13:17 BP 138/80 09/24/19 13:17 Pulse Ox 98 09/24/19 13:17 - Exam Physical Examinations : -Constitutiona : Cooperative , not in acute distress . -HEENT : nech : supple , no Lymphadenopathy , normal thyroid size . : eyes : no ptosis , no icterus, no photophobia . : ENT : normal of hearing , normal oropharynx , no Thrush . - neurologic : Cranial nerve II to XII intact , no focal neurological deffecit . -psychatric : alert , oriented X 3 , appropriate affect , intact judgment and insight . -Lymphatic : no Lymphadenopathy . - musculoskeltal : Lumber spine moter stegnth lower extremities ,thigh and legs 5/5 Right side , 5/5 Left side deep tendon reflexes : normal Knee Jerk , normal ankle Jerk lumber facet Loading Test =positive Right , positive Left Range of motion of the lumbar spine Flexion 30 degrees, extension 10 degrees strait leg raising test = positive at 60 degree Fabere test= positive Right , and positive LT . Sever tenderness over the Sacroiliac joint on the Left sides Gaenslen test= positive left . Seated flexion test= positive Left . Assessment and Plan Plan: Assessment and plan= chronic low back pain secondary to lumbar degenerative disc disease , lumbar spondylosis with lumbar facet arthropathy . Left sacroiliitis, compression fracture lumbar spine MAPS Reviwed and it was apropriate . Patient had positive results after diagnostic medial branch block lumbar area x2 (she had more than 70% improvement of her low back pain after each block ) Patient will be good candidate to have RFA of the medial branch lumbar area L2, L3, L4, L5 on the left side first , Time with Patient: Less than 30 PQRS Measure Charge Sheet Measure #130: Documentation of Current Meds in Medical Chart: Patient's medications documented in chart Measure #226: Tobacco Use: Screen & Cessation Intervention: Pt screened for tobacco use AND intervention given Measure #111: Pneumonia Vaccination: Pneumococcal vaccine NOT administered or previously given Measure #47: Advance Care Plan: Advance care planning discussed & documented, pt chose/unable to give Measure #412: Opioid Treatment Agreement: No documentation of signed opioid treatment agreement Measure #408: Opioid Therapy Follow-up Evaluation: Patient had NO f/u eval minimum every 3 months during opioid therapy Measure #317: Preventitive Care & Scrn High Bld Press & F/U: Normal blood pressure, f/u not required Measure #128: Body Mass Index (BMI) Screening & Follow-up: BMI documented ABOVE normal parameters - f/u documented Measure #131: Pain Assessment & Follow-up: Pain positive & plan documented, Follow-up scheduled Measure #431: Unhealthy Alcohol Use Preventative Care & Scrn: Patient not identified as an unhealthy alcohol user PQRS Narrative: Smoking Status Current every day smoker Blood Pressure 138/80 Pain Intensity [Left Lower 4 Back] Scale Used Numeric (1 - 10) Hx Alcohol Use (MH) No Home Medications: Ambulatory Orders ARIPiprazole [Abilify] 2 mg PO HS 04/27/17 Amitriptyline HCl [Elavil] 75 mg PO HS 04/27/17 LORazepam [Ativan] 1 mg PO TID PRN 04/27/17 Loratadine [Claritin] 10 mg PO DAILY 04/27/17 Atorvastatin [Lipitor] 20 mg PO DAILY 03/28/18 Acetaminophen [Tylenol Extra Strength] 500 mg PO DIRECTED PRN 06/24/19 Cholecalciferol [Vitamin D3 (25 Mcg = 1000 Iu)] 5,000 / PO DAILY 09/11/19 Calcium Carb/Magnesium Hydrox [Rolaids Chewable Tablet] 1 each PO DAILY PRN 09/19/19 Controlled Substance Measures - Controlled Substance Measures Is patient prescribed a controlled substance at discharge?: No
== END | disposition home or self-care (01) ==
LOC: PNWHC3 12:55
PROVIDERS: ATTEND Specialist
DX: G89.29 Other chronic pain (principal); M51.36 Other intervertebral disc degeneration, lumbar region; M47.816 Spondylosis without myelopathy or radiculopathy, lumbar region; M46.96 Unspecified inflammatory spondylopathy, lumbar region; M46.1 Sacroiliitis, not elsewhere classified; S32.008A Other fracture of unspecified lumbar vertebra, initial encounter for closed fracture; F17.200 Nicotine dependence, unspecified, uncomplicated; Z79.899 Other long term (current) drug therapy
CPT/HCPCS: 99211

== ENCOUNTER 2020-01-20 08:30 | Day surgery (SDC) | payer MEDICARE, OTHER ==
[2020-01-19 11:00] VITALS: BMI 24.2
[2020-01-20] MEDS ORDERED: LACTATED RINGERS 1,000 ML IV SCH (08:36)
[2020-01-20 08:46] VITALS: RESP 16; TEMP 98.3
[2020-01-20] MEDS ORDERED: LIDOCAINE 1% (10MG/ML) FOR IV START INTRADERMA ONE (08:50)
[2020-01-20] MEDS ORDERED: MIDAZOLAM 2 MG/2 ML VIAL ONE (09:00)
[2020-01-20] MEDS ORDERED: methylPREDNISolone ACETATE 40 MG/ML 1 ML VIAL ONE (09:00)
[2020-01-20] MEDS ORDERED: ROPIVACAINE 5MG/ML 20ML VIAL ONE (09:00)
[2020-01-20] MEDS ORDERED: IV FLUID CONTINUATION 600 ML IV ONE (09:32)
[2020-01-20] MEDS ORDERED: KETOROLAC 30 MG/ML 1 ML VIAL IVP ONE (09:38)
--- NOTE | 2020-01-20 09:40 | FL ---
EXAMINATION TYPE: FL guided pain mgmt statistic DATE OF EXAM: 01/20/2020 CLINICAL HISTORY: Low back pain. TECHNIQUE: Fluoroscopy. COMPARISON: None. FINDINGS: Fluoroscopic guidance was provided during pain relief procedure performed by Dr. Flores . A total of 11 seconds of fluoroscopic time was utilized during the procedure and 3 spot images are acquired. Images acquired shows needle localization at several levels off the midline in the mid to lower lumbar spine and lumbosacral region. IMPRESSION: As Above.
[2020-01-20 09:56] VITALS: BP 115/73; PULSE 76
--- NOTE | 2020-01-21 10:53 | P.PCN ---
Date of Procedure: 01/20/20 Procedure(s) Performed: PREOPERATIVE DIAGNOSIS: 1-Lumbar Spondylosis with Facet Arthropathy without myelopathy. POSTOPERATIVE DIAGNOSIS: 1- Lumbar Spondylosis with Facet Arthropathy without myelopathy. PROCEDURES : Radiofrequency thermocoagulation Left L2 ,L3 , L4 , and L5 medial branch, with fluoroscopic guidance (fluoroscopy images available in the radiology department) ( to denervate the facet joint at Left L3-4 , L4-5 ,and L5-S1 levels ) ANESTHESIA: Moderate sedation with intravenous versed 4 mg and local infiltration with Ropivacaine 0.5 % . EBL: Minimal PROCEDURE INDICATION: The patient with low back pain secondary to lumbar facet arthropathy who had more than 50% relief of her pain with previous diagnostic lumbar medial branch block with bupivacaine. PROCEDURE DESCRIPTION / TECHNIQUE: The patient was seen and identified in the preoperative area. Risks, benefits, complications, including but not limited to risk of infection ,bleeding , allergic reactions to the medications and no complete pain releife , and alternatives were discussed with the patient, the patient agreed to proceed with the procedure and signed the consent. IV was started. Vital signs remained stable throughout the procedure. Patient was taken to the OR and time out was completed. The patient was placed in the prone position on the procedure table. The lumber area was prepped and draped in the usual sterile fashion. . Vital signs were closely monitored during the procedure .IV sedation was used during the procedure to decrease patients anxiety. Using AP and then oblique fluoroscopy, the ``eye of the Everette dog corresponding to the connection between the superior and transverse articular processes of left L2 ,L3, L4, and L5 were identified, marked, and localized with 1% lidocaine. Subsequently, a [id number] radiofrequency cannula with a 10-mm active tip was advanced guided by fluoroscopy to each of the``eyes of the Everette dog at Left L2 , L3, L4, and L5. Each site then underwent sensory testing at 50 Hz and 0 to 1 volt and motor testing at 2.5 Hz and 0 to 3 volt with local stimulation, but no radicular symptoms down the legs. Thereafter each sites underwent radiofrequency thermocoagulation at 80 degrees celsius for 90 seconds after injecting 0.5 ml of PF Ropivacaine 1ml, then after the thermocoagulation done , 1 ml of the block solution containing Depo-Medrol 40 mg and 3 ml of Ropivacaine 0.5% was injected at the Left L2 , L3 , L4 , and L5 , levels after negative aspiration of CSF and blood and with no paresthesias. Cannulas were retracted while injecting lidocaine 1% until the needle is out. At the end of the procedure, the skin was cleansed and bandages were applied. COMPLICATIONS: No acute complications. DISPOSITION / PLANS: The patient was placed in a supine position and transferred to the recovery area in a stable condition for observation and was discharged from the recovery room after meeting discharge criteria. Home discharge instructions given to the patient by the staff. The patient was reexa mined prior to discharge. The patient will schedule a follow up in the clinic in 2-4 weeks.
== END 2020-01-20 10:17 | disposition home or self-care (01) ==
LOC: ORPAIN 08:30
PROVIDERS: ATTEND Specialist
DX: M47.816 Spondylosis without myelopathy or radiculopathy, lumbar region (principal)
CPT/HCPCS: 64635; 64636 ×2; J2250; J1030; J1885; J2795; 99152

== ENCOUNTER 2020-02-03 07:28 | Day surgery (SDC) | payer MEDICARE, OTHER ==
[2020-01-28 16:05] VITALS: BMI 25.0
[~2020-02-03 07:28] MED LIST changes: +LACTATED RINGERS 1,000 ML IV SCH; -LIDOCAINE 4% (PF) 5 ML AMP ONE; -MIDAZOLAM 2 MG/2 ML VIAL ONE
[2020-02-03 07:56] VITALS: TEMP 97.8
[2020-02-03] MEDS ORDERED: LACTATED RINGERS 1,000 ML IV ONE (08:08)
[2020-02-03] MEDS ORDERED: ROPIVACAINE 5MG/ML 20ML VIAL ONE (08:31)
[2020-02-03] MEDS ORDERED: MIDAZOLAM 2 MG/2 ML VIAL ONE (08:31)
[2020-02-03] MEDS ORDERED: ONDANSETRON 4 MG/2 ML VIAL ONE (08:31)
[2020-02-03] MEDS ORDERED: methylPREDNISolone ACETATE 40 MG/ML 1 ML VIAL ONE (08:31)
--- NOTE | 2020-02-03 09:01 | P.PCN ---
Date of Procedure: 02/03/20 Procedure(s) Performed: PREOPERATIVE DIAGNOSIS: 1-Lumbar Spondylosis with Facet Arthropathy without myelopathy. POSTOPERATIVE DIAGNOSIS: 1- Lumbar Spondylosis with Facet Arthropathy without myelopathy. PROCEDURES : Radiofrequency thermocoagulation Right L2 ,L3 , L4 , and L5 medial branch, with fluoroscopic guidance (fluoroscopy images available in the radiology department) ( to denervate the facet joint at Right L3-4 , L4-5 ,and L5-S1 levels ) ANESTHESIA: Moderate sedation with intravenous versed 4 mg and local infiltration with Ropivacaine 0.5 % . EBL: Minimal PROCEDURE INDICATION: The patient with low back pain secondary to lumbar facet arthropathy who had more than 50% relief of her pain with previous diagnostic lumbar medial branch block with bupivacaine. PROCEDURE DESCRIPTION / TECHNIQUE: The patient was seen and identified in the preoperative area. Risks, benefits, complications, including but not limited to risk of infection ,bleeding , allergic reactions to the medications and no complete pain releife , and alternatives were discussed with the patient, the patient agreed to proceed with the procedure and signed the consent. IV was started. Vital signs remained stable throughout the procedure. Patient was taken to the OR and time out was completed. The patient was placed in the prone position on the procedure table. The lumber area was prepped and draped in the usual sterile fashion. . Vital signs were closely monitored during the procedure .IV sedation was used during the procedure to decrease patients anxiety. Using AP and then oblique fluoroscopy, the ``eye of the Everette dog corresponding to the connection between the superior and transverse articular processes of Right L2 ,L3, L4, and L5 were identified, marked, and localized with 1% lidocaine. Subsequently, a 18 [id number] VENOM radiofrequency cannula with a 10-mm active tip was advanced guided by fluoroscopy to each of the``eyes of the Everette dog at Right L2 , L3, L4, and L5. Each site then underwent sensory testing at 50 Hz and 0 to 1 volt and motor testing at 2.5 Hz and 0 to 3 volt with local stimulation, but no radicular symptoms down the legs. Thereafter each sites underwent radiofrequency thermocoagulation at 80 degrees celsius for 90 seconds after injecting 0.5 ml of PF Ropivacaine 1ml, then after the thermocoagulation done , 1 ml of the block solution containing Depo-Medrol 40 mg and 3 ml of Ropivacaine 0.5% was injected at the Right L2 , L3 , L4 , and L5 , levels after negative aspiration of CSF and blood and with no paresthesias. Cannulas were retracted while injecting lidocaine 1% until the needle is out. At the end of the procedure, the skin was cleansed and bandages were applied. COMPLICATIONS: No acute complications. DISPOSITION / PLANS: The patient was placed in a supine position and transferred to the recovery area in a stable condition for observation and was discharged from the recovery room after meeting discharge criteria. Home discharge instructions given to the patient by the staff. The patient was reexamined prior to discharge. The patient will schedule a follow up in the clinic in 2-4 weeks.
[2020-02-03] MEDS ORDERED: KETOROLAC 30 MG/ML 1 ML VIAL IVP STA (09:02)
[2020-02-03] MEDS ORDERED: IV FLUID CONTINUATION 1,000 ML IV ONE (09:07)
[2020-02-03] MEDS ORDERED: KETOROLAC 30 MG/ML 1 ML VIAL ONE (09:14)
[2020-02-03 10:01] VITALS: BP 117/64; PULSE 77; RESP 17
--- NOTE | 2020-02-03 13:41 | FL ---
Fluoroscopy INDICATION: Pain FINDINGS: Fluoroscopy time: 13 seconds. Images obtained: 3. IMPRESSIONS: 1. Documentation of fluoroscopy.
== END 2020-02-03 10:15 | disposition home or self-care (01) ==
LOC: ORPAIN 07:28
PROVIDERS: ATTEND Specialist
DX: M47.816 Spondylosis without myelopathy or radiculopathy, lumbar region (principal); I25.10 Atherosclerotic heart disease of native coronary artery without angina pectoris; J45.909 Unspecified asthma, uncomplicated; Z90.710 Acquired absence of both cervix and uterus; Z88.5 Allergy status to narcotic agent; Z88.1 Allergy status to other antibiotic agents; Z88.0 Allergy status to penicillin; Z88.8 Allergy status to other drugs, medicaments and biological substances; Z91.09 Other allergy status, other than to drugs and biological substances; Z91.018 Allergy to other foods
CPT/HCPCS: 64635; 64636; J2250; J1030; J2405; J1885; J2795; 64494; 64495; 99152

== ENCOUNTER → 2020-02-25 | Outpatient (CLI) | payer MEDICARE, OTHER ==
[2020-02-25 08:20] VITALS: BP 137/81; PULSE 108; RESP 18; TEMP 98.3
--- NOTE | 2020-02-25 08:49 | P.PAINPG ---
Subjective Progress Note Date: 02/25/20 This is a follow-up visit for this 69 years old female, with chronic history of severe low back pain patient diagnosed with lumbar degenerative disc disease and lumbar spondylosis with lumbar facet arthropathy, left sacroiliitis and compression fracture of the lumbar spine, she underwent lumbar radiofrequency ablation to the medial branches of L2, L3, L4, L5left side done on 01/20/2020 and right side done on 02/03/2020. She returns today for follow-up. She reports good ongoing relief from this procedure, it has helped her pain, however she still has low back pain rated as 5/10, described as burning, stabbing, radiating to bilateral buttocks, left greater than right. Pain is worse with activity, bending and better with inactivity. She does have occasional numbness in bilateral lower extremities. She takes extra strength Tylenol 1-2 tablets per day as needed. She has been to physical therapy in the past, did not get any significant benefit from this. She has had massage therapy before, and has obtained good benefit from this. She is doing some exercises in the form of pelvic tilts. She is also working on quitting smoking. She states that she is moving to [facility] on March 30 in his packing up her things. Review of systems is negative for chest pain, shortness of breath, new onset weakness, numbness/tingling, abdominal pain, malaise, fever, night sweats, chills, homicidal or suicidal ideation, or bowel or bladder incontinence. She does endorse chronic cough. Objective Physical exam: Vitals: Reviewed in EMR GENERAL: Well appearing, in no acute distress PSYCH: Mood and affect is appropriate. Awake, alert, and oriented SKIN: Skin color, texture, turgor normal, no rashes or lesions HEENT: Normocephalic, atraumatic. EOM intact CV: No pedal edema RESP: Respirations are unlabored, no audible wheezing GI: Abdomen non-distended MUSCULOSKELETAL: Bilateral lower extremity strength is normal and symmetric. No atrophy or tone abnormalities are noted. Lumbar spine: Straight leg raising in the sitting position is positive on the left for radicular pain. Tenderness to palpation over the lumbar spine and paraspinous muscles bilaterally. Positive for pain with facet loading and back extension/rotation. Lumbar extension is limited to 10 Extremities: Peripheral joint ROM is full and pain free without obvious instability or laxity in all four extremities. No edema or skin discolorations noted. Gait: Gait is slow, antalgic NEUR: Cranial nerves are grossly intact. No loss of sensation is noted. Assessment and Plan Plan: Assessment and plan= chronic low back pain secondary to lumbar degenerative disc disease , lumbar spondylosis with lumbar facet arthropathy . Left sacroiliitis, compression fracture lumbar spine Patient returns for follow-up following RFA of the medial branch lumbar area L2, L3, L4, L5 and reports good benefit Prescription for massage therapy given to patient Follow-up: As needed, she is relocating in March Patient was counseled for 3 minutes on the importance of smoking cessation in regards to general health and particularly chronic pain. She is seeing her primary care physician later today and we will obtain Chantix prescription. PQRS Measure Charge Sheet Measure #130: Documentation of Current Meds in Medical Chart: Patient's medications documented in chart Measure #226: Tobacco Use: Screen & Cessation Intervention: Pt screened for tobacco use AND intervention given Measure #111: Pneumonia Vaccination: Pneumococcal vaccine NOT administered or previously given Measure #47: Advance Care Plan: Advance care planning discussed & documented, pt chose/unable to give Measure #412: Opioid Treatment Agreement: No documentation of signed opioid treatment agreement Measure #408: Opioid Therapy Follow-up Evaluation: Patient had NO f/u eval minimum every 3 months during opioid therapy Measure #317: Preventitive Care & Scrn High Bld Press & F/U: Normal blood pressure, f/u not required Measure #128: Body Mass Index (BMI) Screening & Follow-up: BMI documented within normal parameters - f/u documented Measure #131: Pain Assessment & Follow-up: Pain positive & plan documented, Follow-up as needed Measure #431: Unhealthy Alcohol Use Preventative Care & Scrn: Patient not identified as an unhealthy alcohol user PQRS Measure Charge Sheet PQRS Narrative: Smoking Status Current every day smoker Pain Intensity [Lower Back] 5 Scale Used Numeric (1 - 10) Hx Alcohol Use (MH) No Home Medications: Ambulatory Orders ARIPiprazole [Abilify] 2 mg PO HS 04/27/17 Amitriptyline HCl [Elavil] 75 mg PO HS 04/27/17 LORazepam [Ativan] 1 mg PO TID PRN 04/27/17 Loratadine [Claritin] 10 mg PO DAILY 04/27/17 Atorvastatin [Lipitor] 20 mg PO DAILY 03/28/18 Acetaminophen [Tylenol Extra Strength] 500 mg PO DIRECTED PRN 06/24/19 Cholecalciferol [Vitamin D3 (25 Mcg = 1000 Iu)] 5,000 units PO DAILY 09/11/19 Prilosec (Unknown Dose) 20 mg PO DAILY 01/19/20 Clotrimazole Cream [Lotrimin Cream] 1 applic TOPICAL DAILY 01/28/20 Controlled Substance Measures - Controlled Substance Measures Is patient prescribed a controlled substance at discharge?: No
== END | disposition home or self-care (01) ==
LOC: PNWHC3 08:09
PROVIDERS: ATTEND Anesthesiology
DX: G89.29 Other chronic pain (principal); M51.36 Other intervertebral disc degeneration, lumbar region; M47.816 Spondylosis without myelopathy or radiculopathy, lumbar region; M46.1 Sacroiliitis, not elsewhere classified; M48.56XA Collapsed vertebra, not elsewhere classified, lumbar region, initial encounter for fracture; Z98.890 Other specified postprocedural states; F17.200 Nicotine dependence, unspecified, uncomplicated; Z79.899 Other long term (current) drug therapy
CPT/HCPCS: 99211

== ENCOUNTER 2024-05-03 13:29 | Emergency (ER) | payer MEDICARE, OTHER ==
[2024-05-03 13:56] VITALS: BP 162/94; PULSE 102; RESP 18; TEMP 98.4
--- NOTE | 2024-05-03 14:02 | ED ---
General Adult HPI - General Chief complaint: Recheck/Abnormal Lab/Rx Stated complaint: medication withdrawl Time Seen by Provider: 05/03/24 13:43 Source: patient, RN notes reviewed Mode of arrival: ambulatory Limitations: no limitations - History of Present Illness Initial comments: 73-year-old female presents emergency department chief complaint of medication refill. Patient states she has severe anxiety is on Ativan needs to be on Ativan 3 times a day but is down to 2 times a day. Patient was in the longterm after she had a few falls in [place] and got back last night which she does have her paperwork with her. Patient did not get a prescription for her Ativan as she had been taking and states that she is worried about withdrawal symptoms. Patient denies feeling suicidal homicidal. - Related Data Home Medications Medication Instructions Recorded Confirmed ARIPiprazole [Abilify] 2 mg PO HS 04/27/17 02/25/20 Amitriptyline HCl [Elavil] 75 mg PO HS 04/27/17 02/25/20 LORazepam [Ativan] 1 mg PO TID PRN 04/27/17 02/25/20 Loratadine [Claritin] 10 mg PO DAILY 04/27/17 02/25/20 Atorvastatin [Lipitor] 20 mg PO DAILY 03/28/18 02/25/20 Acetaminophen [Tylenol Extra 500 mg PO DIRECTED PRN 06/24/19 02/25/20 Strength] Cholecalciferol [Vitamin D3 (25 5,000 units PO DAILY 09/11/19 02/25/20 Mcg = 1000 Iu)] Prilosec (Unknown Dose) 20 mg PO DAILY 01/19/20 02/25/20 Clotrimazole Cream [Lotrimin Cream] 1 applic TOPICAL DAILY 01/28/20 02/25/20 Previous Rx's Medication Instructions Recorded LORazepam [Ativan] 1 mg PO BID #20 tab 05/03/24 Allergies Allergy/AdvReac Type Severity Reaction Status Date / Time banana Allergy Rash/Hives Verified 05/03/24 13:56 codeine Allergy Nausea & Verified 05/03/24 13:56 Vomiting, Rash/Hives grass pollen Allergy Unknown Verified 05/03/24 13:56 hydrocodone [From Vicodin] Allergy Nausea & Verified 05/03/24 13:56 Vomiting hydromorphone [From Dilaudid] Allergy Rash/Hives Verified 05/03/24 13:56 Iodinated Contrast Media Allergy Anaphylaxis Verified 05/03/24 13:56 [Iodinated Contrast- Oral and IV Dye] Iodine and Iodide Containing Allergy GI BLEEDING Verified 05/03/24 13:56 Produc mold Allergy Rash/Hives Verified 05/03/24 13:56 morphine Allergy Rash/Hives Verified 05/03/24 13:56 neomycin Allergy Swelling Verified 05/03/24 13:56 with eye drop Penicillins Allergy Rash/Hives Verified 05/03/24 13:56 prednisone Allergy Rash/Hives Verified 05/03/24 13:56 ragweed pollen Allergy Rash/Hives Verified 05/03/24 13:56 tree and shrub pollen Allergy Rash/Hives Verified 05/03/24 13:56 fentanyl AdvReac Nausea & Verified 05/03/24 13:56 Vomiting Review of Systems ROS Statement: Those systems with pertinent positive or pertinent negative responses have been documented in the HPI. ROS Other: All systems not noted in ROS Statement are negative. Past Medical History Past Medical History: Asthma, Chest Pain / Angina, Eye Disorder, Fibromyalgia, GERD/Reflux, Musculoskeletal Disorder, Neurologic Disorder, Osteoarthritis (OA), Skin Disorder Additional Past Medical History / Comment(s): states fx L4, bulging discs, DDD, PALPITATIONS, DIVERTICULITIS, IBS, "SUPERIOR MESENTARY ARTERY SYNDROME", MS, MIGRAINES, OSTEOPOROSIS, PSORIASIS ON BOTTOM OF FEET, PULMONARY NODULES-drShireen monitoring. burning in throat., states influenza in September and November 2019. Using a vaginal cream for irritation. History of Any Multi-Drug Resistant Organisms: None Reported Past Surgical History: Appendectomy, Cholecystectomy, Heart Catheterization, Hysterectomy Additional Past Surgical History / Comment(s): LT BREAST BX-NEG, COLONOSCOPY/ EGD, PAIN CLINIC PROCEDURES. Past Anesthesia/Blood Transfusion Reactions: Motion Sickness, Postoperative Nausea & Vomiting (PONV) Additional Past Anesthesia/Blood Transfusion Reaction / Comment(s): Claustrophobia Past Psychological History: Anxiety, Depression Smoking Status: Current every day smoker Past Alcohol Use History: None Reported Past Drug Use History: None Reported - Past Family History Mother Family Medical History: Congestive Heart Failure (CHF) Additional Family Medical History / Comment(s): Heart murmur. Father Family Medical History: Myocardial Infarction (DC) General Exam Limitations: no limitations General appearance: alert, in no apparent distress Head exam: Present: atraumatic, normocephalic, normal inspection Neck exam: Present: normal inspection, full ROM. Absent: tenderness, meningismus, lymphadenopathy Respiratory exam: Present: normal lung sounds bilaterally. Absent: respiratory distress, wheezes, rales, rhonchi, stridor Cardiovascular Exam: Present: regular rate, normal rhythm, normal heart sounds. Absent: systolic murmur, diastolic murmur, rubs, gallop, clicks Neurological exam: Present: alert Psychiatric exam: Present: anxious Skin exam: Present: warm, dry, intact, normal color. Absent: rash Course Vital Signs 05/03/24 13:49 Temperature 98.4 F Pulse Rate 102 H Respiratory 18 Rate Blood Pressure 162/94 O2 Sat by Pulse 96 Oximetry Medical Decision Making - Medical Decision Making Was pt. sent in by a medical professional or institution (GUALBERTO Conner, POULTRY INSPECTOR, urgent care, hospital, or longterm...) When possible be specific @ -No Did you speak to anyone other than the patient for history (EMS, parent, family, police, friend...)? What history was obtained from this source @ -No Did you review nursing and triage notes (agree or disagree)? Why? @ -I reviewed and agree with nursing and triage notes Were old charts reviewed (outside hosp., previous admission, EMS record, old EKG, old radiological studies, urgent care reports/EKG's, longterm records)? Report findings @ -No old charts were reviewed Differential Diagnosis (chest pain, altered mental status, abdominal pain women, abdominal pain men, vaginal bleeding, weakness, fever, dyspnea, syncope, headache, dizziness, GI bleed, back pain, seizure, CVA, palpatations, mental health, musculoskeletal)? @ -Medication refill, anxiety EKG interpreted by me (3pts min.). @ -None X-rays interpreted by me (1pt min.). @ -None done CT interpreted by me (1pt min.). @ -None done U/S interpreted by me (1pt. min.). @ -None done What testing was considered but not performed or refused? (CT, X-rays, U/S, labs)? Why? @ -None What meds were considered but not given or refused? Why? @ -None Did you discuss the management of the patient with other professionals (professionals i.e. , PA, POULTRY INSPECTOR, lab, RT, psych nurse, social psychologist, magazine journalist, teacher, dispatch officer, correctional counselor/case manager)? Give summary @ -No Was smoking cessation discussed for >3mins.? @ -No Was critical care preformed (if so, how long)? @ -No Were there social determinants of health that impacted care today? How? (Homelessness, low income, unemployed, alcoholism, drug addiction, tra nsportation, low edu. Level, literacy, decrease access to med. care, long-term, rehab)? @ -No Was there de-escalation of care discussed even if they declined (Discuss DNR or withdrawal of care, Hospice)? DNR status @ -No What co-morbidities impacted this encounter? (DM, HTN, Smoking, COPD, CAD, Cancer, CVA, ARF, Chemo, Hep., AIDS, mental health diagnosis, sleep apnea, morbid obesity)? @ -None Was patient admitted / discharged? Hospital course, mention meds given and route, prescriptions, significant lab abnormalities, going to OR and other pertinent info. @ -Discharge patient presented for medication refill and concern for withdrawal. Patient given prescription until she can see her PCP the following week. Patient's not suicidal homicidal vitals are stable. Undiagnosed new problem with uncertain prognosis? @ -No Drug Therapy requiring intensive monitoring for toxicity (Heparin, Nitro, Insulin, Cardizem)? @ -No Were any procedures done? @ -No Diagnosis/symptom? @ -Medication refill, anxiety Acute, or Chronic, or Acute on Chronic? @ -Acute Uncomplicated (without systemic symptoms) or Complicated (systemic symptoms)? @ -Uncomplicated Side effects of treatment? @ -No Exacerbation, Progression, or Severe Exacerbation? @ -No Poses a threat to life or bodily function? How? (Chest pain, USA, DC, pneumonia, PE, COPD, DKA, ARF, appy, cholecystitis, CVA, Diverticulitis, Homicidal, Suicidal, threat to staff... and all critical care pts) @ -No Disposition Clinical Impression: Medication refill, Anxiety Disposition: HOME SELF-CARE Condition: Stable Additional Instructions: Please return to the Emergency Department if symptoms worsen or any other concerns. Prescriptions: LORazepam [Ativan] 1 mg PO BID #20 tab Is patient prescribed a controlled substance at d/c from ED?: Yes When asked, does pt state using other controlled substances?: No If prescribed controlled substance>3 days was MAPS reviewed?: Yes If opioid is for acute pain is fill amount 7 days or less?: Yes If Rx opioid, was Start Talking consent form obtained?: Yes Referrals: Brandie Child MD [Primary Care Provider] - 1-2 days Time of Disposition: 14:00
== END 2024-05-03 14:10 | disposition home or self-care (01) ==
LOC: EC 13:29
CPT/HCPCS: 99282

== ENCOUNTER 2024-05-12 18:47 | Emergency (ER) | payer MEDICARE, OTHER ==
--- NOTE | 2024-05-12 19:23 | ED ---
Back Pain HPI - General Chief Complaint: Back Pain/Injury Stated Complaint: leg pain Time Seen by Provider: 05/12/24 19:01 Source: patient, RN notes reviewed Limitations: no limitations - History of Present Illness Initial Comments: 73-year-old female with a history of MS (diagnosed in September 2023) presents emergency department via EMS for chief complaint of lumbar back pain and paresthesias down bilateral lower extremities. States that pain has been worsening since last night. Denies history of recent falls or injuries to the lumbar spine. Denies loss of bladder bowel continence or saddle anesthesias, states she has been having difficulties with urination over the last few months since she was discharged from a long term, and her physician is aware of this. She has been taking Tylenol Motrin at home with minimal relief. Patient states that she has an appointment scheduled with a neurologist specialist in [place] within the next month. She does not have any medication she takes at home for pain. - Related Data Home Medications Medication Instructions Recorded Confirmed ARIPiprazole [Abilify] 2 mg PO HS 04/27/17 02/25/20 Amitriptyline HCl [Elavil] 75 mg PO HS 04/27/17 02/25/20 LORazepam [Ativan] 1 mg PO TID PRN 04/27/17 02/25/20 Loratadine [Claritin] 10 mg PO DAILY 04/27/17 02/25/20 Atorvastatin [Lipitor] 20 mg PO DAILY 03/28/18 02/25/20 Acetaminophen [Tylenol Extra 500 mg PO DIRECTED PRN 06/24/19 02/25/20 Strength] Cholecalciferol [Vitamin D3 (25 5,000 units PO DAILY 09/11/19 02/25/20 Mcg = 1000 Iu)] Prilosec (Unknown Dose) 20 mg PO DAILY 01/19/20 02/25/20 Clotrimazole Cream [Lotrimin Cream] 1 applic TOPICAL DAILY 01/28/20 02/25/20 Previous Rx's Medication Instructions Recorded LORazepam [Ativan] 1 mg PO BID #20 tab 05/03/24 LORazepam [Ativan] 1 mg PO BID 3 Days #6 tab 05/13/24 Allergies Allergy/AdvReac Type Severity Reaction Status Date / Time codeine Allergy Nausea & Verified 05/03/24 13:56 Vomiting, Rash/Hives doxycycline Allergy Nausea & Verified 05/12/24 18:55 Vomiting grass pollen Allergy Unknown Verified 05/03/24 13:56 hydrocodone [From Vicodin] Allergy Nausea & Verified 05/03/24 13:56 Vomiting hydromorphone [From Dilaudid] Allergy Rash/Hives Verified 05/03/24 13:56 Iodinated Contrast Media Allergy Anaphylaxis Verified 05/03/24 13:56 [Iodinated Contrast- Oral and IV Dye] Iodine and Iodide Containing Allergy GI BLEEDING Verified 05/03/24 13:56 Produc lidocaine Allergy Rash/Hives Verified 05/12/24 18:57 mold Allergy Rash/Hives Verified 05/03/24 13:56 morphine Allergy Rash/Hives Verified 05/03/24 13:56 neomycin Allergy Swelling Verified 05/03/24 13:56 with eye drop Penicillins Allergy Rash/Hives Verified 05/03/24 13:56 prednisone Allergy Rash/Hives Verified 05/03/24 13:56 ragweed pollen Allergy Rash/Hives Verified 05/03/24 13:56 tree and shrub pollen Allergy Rash/Hives Verified 05/03/24 13:56 dicyclomine AdvReac Diarrhea Verified 05/12/24 18:56 erythromycin base AdvReac Unknown Verified 05/12/24 18:56 fentanyl AdvReac Nausea & Verified 05/03/24 13:56 Vomiting lansoprazole [From Prevacid] AdvReac Nausea & Verified 05/12/24 18:56 Vomiting regadenoson [From Lexiscan] AdvReac Nausea & Verified 05/12/24 18:56 Vomiting Review of Systems ROS Statement: Those systems with pertinent positive or pertinent negative responses have been documented in the HPI. ROS Other: All systems not noted in ROS Statement are negative. Past Medical History Past Medical History: Asthma, Chest Pain / Angina, Eye Disorder, Fibromyalgia, GERD/Reflux, Musculoskeletal Disorder, Neurologic Disorder, Osteoarthritis (OA), Skin Disorder Additional Past Medical History / Comment(s): states fx L4, bulging discs, DDD, PALPITATIONS, DIVERTICULITIS, IBS, "SUPERIOR MESENTARY ARTERY SYNDROME", MS, MIGRAINES, OSTEOPOROSIS, PSORIASIS ON BOTTOM OF FEET, PULMONARY NODULES-drShireen kwong. burning in throat., states influenza in September and November 2019. Using a vaginal cream for irritation. History of Any Multi-Drug Resistant Organisms: None Reported Past Surgical History: Appendectomy, Cholecystectomy, Heart Catheterization, Hysterectomy Additional Past Surgical History / Comment(s): LT BREAST BX-NEG, COLONOSCOPY/ EGD, PAIN CLINIC PROCEDURES. Past Anesthesia/Blood Transfusion Reactions: Motion Sickness, Postoperative Nausea & Vomiting (PONV) Additional Past Anesthesia/Blood Transfusion Reaction / Comment(s): Claustrophobia Past Psychological History: Anxiety, Depression Smoking Status: Former smoker Past Alcohol Use History: None Reported Past Drug Use History: None Reported - Past Family History Mother Family Medical History: Congestive Heart Failure (CHF) Additional Family Medical History / Comment(s): Heart murmur. Father Family Medical History: Myocardial Infarction (ME) General Exam Limitations: no limitations General appearance: alert, in no apparent distress Eye exam: Present: normal appearance, PERRL, EOMI. Absent: scleral icterus, conjunctival injection, periorbital swelling Neck exam: Present: normal inspection. Absent: tenderness, meningismus, lymphadenopathy Respiratory exam: Present: normal lung sounds bilaterally. Absent: respiratory distress, wheezes, rales, rhonchi, stridor Cardiovascular Exam: Present: regular rate, normal rhythm, normal heart sounds. Absent: systolic murmur, diastolic murmur, rubs, gallop, clicks GI/Abdominal exam: Present: soft, normal bowel sounds. Absent: distended, tenderness, guarding, rebound, rigid Extremities exam: Present: normal inspection, full ROM, normal capillary refill. Absent: tenderness, pedal edema, joint swelling, calf tenderness Back exam: Present: tenderness (lumbar spine with palpation and ROM, + straight leg test). Absent: CVA tenderness (R), CVA tenderness (L) Neurological exam: Present: alert, oriented X3, CN II-XII intact Skin exam: Present: warm, dry, intact, normal color. Absent: rash Course Vital Signs 05/12/24 05/12/24 18:50 23:10 Temperature 98.7 F 97.5 F L Pulse Rate 79 60 Respiratory 18 16 Rate Blood Pressure 164/89 143/74 O2 Sat by Pulse 95 96 Oximetry Medical Decision Making - Medical Decision Making Was pt. sent in by a medical professional or institution (, PA, X RAY DEVELOPER, urgent care, hospital, or long term...) When possible be specific @ -No Did you speak to anyone other than the patient for history (EMS, parent, family, police, friend...)? What history was obtained from this source @ -No Did you review nursing and triage notes (agree or disagree)? Why? @ -I reviewed and agree with nursing and triage notes Were old charts reviewed (outside hosp., previous admission, EMS record, old EKG, old radiological studies, urgent care reports/EKG's, long term records)? Report findings @ -No old charts were reviewed Differential Diagnosis (chest pain, altered mental status, abdominal pain women, abdominal pain men, vaginal bleeding, weakness, fever, dyspnea, syncope, headache, dizziness, GI bleed, back pain, seizure, CVA, palpatations, mental health, musculoskeletal)? @ -Differential Back Pain: Strain, zoster, cauda equina syndrome, epidural abscess, vertebral osteomyeli tis, discitis, fracture, subluxation, disc herniation, DJD, spinal stenosis, dissection, AAA, pancreatitis, peptic ulcer disease, pyelonephritis, kidney stone, this is not meant to be an all-inclusive list. EKG interpreted by me (3pts min.). @ -none X-rays interpreted by me (1pt min.). @ -X-ray of the lumbar spine reveals compression deformity at the L4 vertebral body which is similar compared to prior MRI with mild vertebral body height loss CT interpreted by me (1pt min.). @ -None done U/S interpreted by me (1pt. min.). @ -None done What testing was considered but not performed or refused? (CT, X-rays, U/S, labs)? Why? @ -None What meds were considered but not given or refused? Why? @ -None Did you discuss the management of the patient with other professionals (pro fessionals i.e. , PA, X RAY DEVELOPER, lab, RT, psych nurse, social work msw, instructional design consultant, teacher, security flex officer, piano case maker)? Give summary @ -No Was smoking cessation discussed for >3mins.? @ -No Was critical care preformed (if so, how long)? @ -No Were there social determinants of health that impacted care today? How? (Homelessness, low income, unemployed, alcoholism, drug addiction, transportation, low edu. Level, literacy, decrease access to med. care, skilled nursing, rehab)? @ -No Was there de-escalation of care discussed even if they declined (Discuss DNR or withdrawal of care, Hospice)? DNR status @ -No What co-morbidities impacted this encounter? (DM, HTN, Smoking, COPD, CAD, Cancer, CVA, ARF, Chemo, Hep., AIDS, mental health diagnosis, sleep apnea, morbid obesity)? @ -None Was patient admitted / discharged? Hospital course, mention meds given and route, prescriptions, significant lab abnormalities, going to OR and other pertinent info. @ -Discharge. 73-year-old female with back pain. On my evaluation of the patient she is noted to have lumbar back pain that is exacerbated with range of motion and palpation. She has a positive straight leg test on bilateral legs. She does not have red flag symptoms concerning for cauda equina including loss of bladder or bowel continence or saddle anesthesias. Patient advised with dose of Toradol and Norflex and reevaluation states that she is feeling much better. Additionally, patient states that she was evaluated at the beginning of the month and was prescribed Ativan that she takes as needed 2 times per day and is out of this medication until she follows up [facility] week and is requesting a refill for this prescription. Patient denies suicidal homicidal ideations. Patient is provided with starter pack of Flexeril and sent a prescription to the pharmacy for Ativan with a 3-day supply and instructed to follow-up with her primary care provider outpatient. Additionally recommend that she continue to follow-up with specialist as scheduled. Discussed with Dr. Fuller Undiagnosed new problem with uncertain prognosis? @ -No Drug Therapy requiring intensive monitoring for toxicity (Heparin, Nitro, Insulin, Cardizem)? @ -No Were any procedures done? @ -No Diagnosis/symptom? @ -lumbar back pain, anxiety Acute, or Chronic, or Acute on Chronic? @ -acute Uncomplicated (without systemic symptoms) or Complicated (systemic symptoms)? @ -uncomplicated Side effects of treatment? @ -No Exacerbation, Progression, or Severe Exacerbation? @ -No Poses a threat to life or bodily function? How? (Chest pain, USA, ME, pneumonia, PE, COPD, DKA, ARF, appy, cholecystitis, CVA, Diverticulitis, Homicidal, Suicidal, threat to staff... and all critical care pts) @ -No Disposition Clinical Impression: Lumbar back pain Disposition: HOME SELF-CARE Condition: Good Instructions (If sedation given, give patient instructions): Acute Low Back Pain (ED) Additional Instructions: Please return to the Emergency Department if symptoms worsen or any other concerns. Prescriptions: LORazepam [Ativan] 1 mg PO BID 3 Days #6 tab Is patient prescribed a controlled substance at d/c from ED?: No Referrals: Brandie Child MD [Primary Care Provider] - 1-2 days Time of Disposition: 22:51
[2024-05-12] MEDS: KETOROLAC 15 MG/ML 1 ML VIAL IM STA (20:50)
[2024-05-12] MEDS: ORPHENADRINE 30 MG/ML 2 ML VIAL IM STA (20:50)
[2024-05-12] MEDS: CYCLOBENZAPRINE 10MG STARTER 3 TAB BTL PO STA (23:10)
[2024-05-12 23:12] VITALS: BP 143/74; PULSE 60; RESP 16; TEMP 97.5
--- NOTE | 2024-05-13 03:17 | XR ---
EXAMINATION TYPE: XR lumbar spine 2 or 3V DATE OF EXAM: 05/12/2024 7:53 PM CLINICAL INDICATION:Female, 73 years old with history of pain, parasthesias; [facility] COMPARISON: MRI lumbar 06/18/2019 TECHNIQUE: XR lumbar spine 2 or 3V - Frontal, lateral and coned down L5-S1 lateral views of the lumba r spine. FINDINGS: There are 5 lumbar-type vertebral bodies presumed for communication purposes. Mineralization appears somewhat reduced. There is moderate multilevel degenerative disk disease and facet arthrosis. Mild/moderate anterior wedged appearance of the L4 vertebral body similar to prior MRI. Mild vertebra l body height loss along the superior endplate of L3, mild superior and inferior endplate depressions of L1, appear relatively recent but the exact age is indeterminate. There is mild apex right curvatu re of the upper lumbar spine. No significant listhesis is seen. Surgical clips right upper quadrant likely from cholecystectomy. IMPRESSION: 1. Osteopenia and degenerative changes. 2. Compression deformity L4 vertebral body, similar to prior MRI. 3. Mild vertebral body height loss along the superior endplate of L3, mild superior and inferior end plate depressions of L1, appear relatively recent but the exact age is indeterminate. [facility], , 05/13/2024 3:14 AM
== END 2024-05-12 23:18 | disposition home or self-care (01) ==
LOC: EC 18:47
CPT/HCPCS: 72100

== ENCOUNTER 2024-05-15 02:57 | Emergency (ER) | payer MEDICARE, OTHER ==
[2024-05-15 03:03] VITALS: RESP 16
[2024-05-15] MEDS: ONDANSETRON ODT 4 MG TAB PO STA (03:16)
[2024-05-15] MEDS: predniSONE 50 MG TAB PO STA (03:17)
--- NOTE | 2024-05-15 03:24 | ED ---
General Adult HPI - General Chief complaint: Recheck/Abnormal Lab/Rx Stated complaint: Allergic Reaction Time Seen by Provider: 05/15/24 02:59 Source: patient, EMS, RN notes reviewed, old records reviewed Mode of arrival: EMS Limitations: no limitations - History of Present Illness Initial comments: 73-year-old female with chronic low pain and recent diagnosis of MS presents for suspected allergic reaction. Patient states that she started baclofen for her chronic pain which was prescribed by her primary care provider. She has had 3 total doses and states that she feels dizzy with some nausea and dry mouth. She states she took her third dose several hours prior to arrival. No difficulty breathing. No vomiting. No fever. Patient states that she previously had been prescribed a short course of prednisone which did significantly improve her pain. - Related Data Home Medications Medication Instructions Recorded Confirmed ARIPiprazole [Abilify] 2 mg PO HS 04/27/17 02/25/20 Amitriptyline HCl [Elavil] 75 mg PO HS 04/27/17 02/25/20 LORazepam [Ativan] 1 mg PO TID PRN 04/27/17 02/25/20 Loratadine [Claritin] 10 mg PO DAILY 04/27/17 02/25/20 Atorvastatin [Lipitor] 20 mg PO DAILY 03/28/18 02/25/20 Acetaminophen [Tylenol Extra 500 mg PO DIRECTED PRN 06/24/19 02/25/20 Strength] Cholecalciferol [Vitamin D3 (25 5,000 units PO DAILY 09/11/19 02/25/20 Mcg = 1000 Iu)] Prilosec (Unknown Dose) 20 mg PO DAILY 01/19/20 02/25/20 Clotrimazole Cream [Lotrimin Cream] 1 applic TOPICAL DAILY 01/28/20 02/25/20 Previous Rx's Medication Instructions Recorded LORazepam [Ativan] 1 mg PO BID #20 tab 05/03/24 LORazepam [Ativan] 1 mg PO BID 3 Days #6 tab 05/13/24 predniSONE [Deltasone] 20 mg PO BID 5 Days #10 tab 05/15/24 Allergies Allergy/AdvReac Type Severity Reaction Status Date / Time codeine Allergy Nausea & Verified 05/03/24 13:56 Vomiting, Rash/Hives doxycycline Allergy Nausea & Verified 05/12/24 18:55 Vomiting grass pollen Allergy Unknown Verified 05/03/24 13:56 hydrocodone [From Vicodin] Allergy Nausea & Verified 05/03/24 13:56 Vomiting hydromorphone [From Dilaudid] Allergy Rash/Hives Verified 05/03/24 13:56 Iodinated Contrast Media Allergy Anaphylaxis Verified 05/03/24 13:56 [Iodinated Contrast- Oral and IV Dye] Iodine and Iodide Containing Allergy GI BLEEDING Verified 05/03/24 13:56 Produc lidocaine Allergy Rash/Hives Verified 05/12/24 18:57 mold Allergy Rash/Hives Verified 05/03/24 13:56 morphine Allergy Rash/Hives Verified 05/03/24 13:56 neomycin Allergy Swelling Verified 05/03/24 13:56 with eye drop Penicillins Allergy Rash/Hives Verified 05/03/24 13:56 ragweed pollen Allergy Rash/Hives Verified 05/03/24 13:56 tree and shrub pollen Allergy Rash/Hives Verified 05/03/24 13:56 dicyclomine AdvReac Diarrhea Verified 05/12/24 18:56 erythromycin base AdvReac Unknown Verified 05/12/24 18:56 fentanyl AdvReac Nausea & Verified 05/03/24 13:56 Vomiting lansoprazole [From Prevacid] AdvReac Nausea & Verified 05/12/24 18:56 Vomiting regadenoson [From Lexiscan] AdvReac Nausea & Verified 05/12/24 18:56 Vomiting Review of Systems ROS Statement: Those systems with pertinent positive or pertinent negative responses have been documented in the HPI. ROS Other: All systems not noted in ROS Statement are negative. Past Medical History Past Medical History: Asthma, Chest Pain / Angina, Eye Disorder, Fibromyalgia, GERD/Reflux, Musculoskeletal Disorder, Neurologic Disorder, Osteoarthritis (OA), Skin Disorder Additional Past Medical History / Comment(s): states fx L4, bulging discs, DDD, PALPITATIONS, DIVERTICULITIS, IBS, "SUPERIOR MESENTARY ARTERY SYNDROME", MS, MIGRAINES, OSTEOPOROSIS, PSORIASIS ON BOTTOM OF FEET, PULMONARY NODULES-dr. kwong. burning in throat., states influenza in September and November 2019. Using a vaginal cream for irritation. History of Any Multi-Drug Resistant Organisms: None Reported Past Surgical History: Appendectomy, Cholecystectomy, Heart Catheterization, Hysterectomy Additional Past Surgical History / Comment(s): LT BREAST BX-NEG, COLONOSCOPY/ EGD, PAIN CLINIC PROCEDURES. Past Anesthesia/Blood Transfusion Reactions: Motion Sickness, Postoperative Nausea & Vomiting (PONV) Additional Past Anesthesia/Blood Transfusion Reaction / Comment(s): Claustrophobia Past Psychological History: Anxiety, Depression Smoking Status: Former smoker Past Alcohol Use History: None Reported Past Drug Use History: None Reported - Past Family History Mother Family Medical History: Congestive Heart Failure (CHF) Additional Family Medical History / Comment(s): Heart murmur. Father Family Medical History: Myocardial Infarction ([place]) General Exam Limitations: no limitations General appearance: alert, in no apparent distress Head exam: Present: atraumatic, normocephalic Eye exam: Present: normal appearance, PERRL ENT exam: Present: normal oropharynx, mucous membranes dry Neck exam: Present: normal inspection. Absent: tenderness, meningismus Respiratory exam: Present: normal lung sounds bilaterally. Absent: respiratory distress, wheezes Cardiovascular Exam: Present: regular rate, normal rhythm GI/Abdominal exam: Present: soft. Absent: distended, tenderness, guarding Extremities exam: Present: normal inspection, normal capillary refill. Absent: calf tenderness Neurological exam: Present: alert, oriented X3, CN II-XII intact. Absent: motor sensory deficit Psychiatric exam: Present: normal affect, normal mood Skin exam: Present: warm, dry, intact. Absent: cyanosis, diaphoretic, urticaria Course Vital Signs 05/15/24 02:59 Temperature 99.1 F Pulse Rate 81 Respiratory 16 Rate Blood Pressure 166/97 O2 Sat by Pulse 95 Oximetry Medical Decision Making - Medical Decision Making Was pt. sent in by a medical professional or institution (, [place], PUBLIC ADDRESS SERVICER, urgent care, hospital, or residential...) When possible be specific @ -No Did you speak to anyone other than the patient for history (EMS, parent, family, police, friend...)? What history was obtained from this source @ -No Did you review nursing and triage notes (agree or disagree)? Why? @ -I reviewed and agree with nursing and triage notes Were old charts reviewed (outside hosp., previous admission, EMS record, old EKG, old radiological studies, urgent care reports/EKG's, residential records)? Report findings @ -No old charts were reviewed Differential Diagnosis: Allergic reaction to medication, adverse reaction versus typical side effects of baclofen. EKG interpreted by me (3pts min.). @ -As above X-rays interpreted by me (1pt min.). @ -None done CT interpreted by me (1pt min.). @ -None done U/S interpreted by me (1pt. min.). @ -None done What testing was considered but not performed or refused? (CT, X-rays, U/S, labs)? Why? @ -None What meds were considered but not given or refused? Why? @ -None Did you discuss the management of the patient with other professionals (professionals i.e. DrShireen, PA, PUBLIC ADDRESS SERVICER, lab, RT, psych nurse, social services director, alcoholic counselor, teacher, naval gunfire liaison officer, case filler)? Give summary @ -No Was smoking cessation discussed for >3mins.? @ -No Was critical care preformed (if so, how long)? @ -No Were there social determinants of health that impacted care today? How? (Homelessness, low income, unemployed, alcoholism, drug addiction, transportation, low edu. Level, literacy, decrease access to med. care, residential, rehab)? @ -No Was there de-escalation of care discussed even if they declined (Discuss DNR or withdrawal of care, Hospice)? DNR status @ -No What co-morbidities impacted this encounter? (DM, HTN, Smoking, COPD, CAD, Cancer, CVA, ARF, Chemo, Hep., AIDS, mental health diagnosis, sleep apnea, morbid obesity)? @ -Chronic pain, MS Was patient admitted / discharged? Hospital course, mention meds given and route, prescriptions, significant lab abnormalities, going to OR and other pertinent info. @ -73-year-old female who recently started baclofen, 3 total doses with dizziness, nausea, dry mouth. Suspect side effects of this medication. No signs of allergic reaction. Patient states that she did respond well to prednisone for her pain in the past. She will be prescribed 5 days of oral prednisone and should follow-up with her primary care regarding ongoing treatment of her chronic pain. Undiagnosed new problem with uncertain prognosis? @ -No Drug Therapy requiring intensive monitoring for toxicity (Heparin, Nitro, Insulin, Cardizem)? @ -No Were any procedures done? @ -No Diagnosis/symptom? @Adverse drug reaction to baclofen Acute, or Chronic, or Acute on Chronic? @ -[Acute Uncomplicated (without systemic symptoms) or Complicated (systemic symptoms)? @ -Default Side effects of treatment? @ -No Exacerbation, Progression, or Severe Exacerbation? @ -No Poses a threat to life or bodily function? How? (Chest pain, [place], [place], pneumonia, PE, COPD, DKA, ARF, appy, cholecystitis, CVA, Diverticulitis, Homicidal, Suicidal, threat to staff... and all critical care pts) @ -No Disposition Clinical Impression: Adverse drug reaction Disposition: HOME SELF-CARE Condition: Fair Instructions (If sedation given, give patient instructions): Adverse Drug Reaction (ED) Additional Instructions: Please discontinue baclofen as your symptoms are likely related to this medication. Prescriptions: predniSONE [Deltasone] 20 mg PO BID 5 Days #10 tab Is patient prescribed a controlled substance at d/c from ED?: No Referrals: Brandie Child MD [Primary Care Provider] - 1-2 days Time of Disposition: 04:00
[2024-05-15 04:10] VITALS: BP 128/57; PULSE 70; TEMP 97.7
== END 2024-05-15 04:10 | disposition home or self-care (01) ==
LOC: EC 02:57
CPT/HCPCS: 99284

== ENCOUNTER 2024-05-28 17:07 | Emergency (ER) | payer MEDICARE, OTHER ==
[2024-05-28 17:14] VITALS: BP 127/83; PULSE 75; RESP 20; TEMP 98.6
--- NOTE | 2024-05-28 17:29 | ED ---
General Adult HPI - General Chief complaint: Anxiety Stated complaint: anxiety Time Seen by Provider: 05/28/24 17:08 Source: patient Mode of arrival: EMS Limitations: no limitations - History of Present Illness Initial comments: Dictation was produced using [employer] dictation software. please excuse any grammatical, word or spelling errors. Chief Complaint: 73-year-old female presents to the emergency department with benzodiazepine withdrawals History of Present Illness: Patient is 73-year-old female she presents with benzodiazepine withdrawal states that she feels a little shaky. She states that she was taken off her Ativan medication that she was on for several years. She was maintained years on 1 mg twice daily Ativan dosing. She had her p rescriptions canceled on May 11 by primary care doctor's office. Patient states she is feeling a little jittery. States that she is having anxiety attack. Patient has no other complaints The ROS documented in this emergency department record has been reviewed and confirmed by me. Those systems with pertinent positive or negative responses have been documented in the HPI. All other systems are other negative and/or noncontributory. - Related Data Home Medications Medication Instructions Recorded Confirmed ARIPiprazole [Abilify] 2 mg PO HS 04/27/17 02/25/20 Amitriptyline HCl [Elavil] 75 mg PO HS 04/27/17 02/25/20 LORazepam [Ativan] 1 mg PO TID PRN 04/27/17 02/25/20 Loratadine [Claritin] 10 mg PO DAILY 04/27/17 02/25/20 Atorvastatin [Lipitor] 20 mg PO DAILY 03/28/18 02/25/20 Acetaminophen [Tylenol Extra 500 mg PO DIRECTED PRN 06/24/19 02/25/20 Strength] Cholecalciferol [Vitamin D3 (25 5,000 units PO DAILY 09/11/19 02/25/20 Mcg = 1000 Iu)] Prilosec (Unknown Dose) 20 mg PO DAILY 01/19/20 02/25/20 Clotrimazole Cream [Lotrimin Cream] 1 applic TOPICAL DAILY 01/28/20 02/25/20 Previous Rx's Medication Instructions Recorded LORazepam [Ativan] 1 mg PO BID #20 tab 05/03/24 LORazepam [Ativan] 1 mg PO BID 3 Days #6 tab 05/13/24 predniSONE [Deltasone] 20 mg PO BID 5 Days #10 tab 05/15/24 Allergies Allergy/AdvReac Type Severity Reaction Status Date / Time codeine Allergy Nausea & Verified 05/28/24 17:13 Vomiting, Rash/Hives doxycycline Allergy Nausea & Verified 05/28/24 17:13 Vomiting grass pollen Allergy Unknown Verified 05/28/24 17:13 hydrocodone [From Vicodin] Allergy Nausea & Verified 05/28/24 17:13 Vomiting hydromorphone [From Dilaudid] Allergy Rash/Hives Verified 05/28/24 17:13 Iodinated Contrast Media Allergy Anaphylaxis Verified 05/28/24 17:13 [Iodinated Contrast- Oral and IV Dye] Iodine and Iodide Containing Allergy GI BLEEDING Verified 05/28/24 17:13 Produc lidocaine Allergy Rash/Hives Verified 05/28/24 17:13 mold Allergy Rash/Hives Verified 05/28/24 17:13 morphine Allergy Rash/Hives Verified 05/28/24 17:13 neomycin Allergy Swelling Verified 05/28/24 17:13 with eye drop Penicillins Allergy Rash/Hives Verified 05/28/24 17:13 ragweed pollen Allergy Rash/Hives Verified 05/28/24 17:13 tree and shrub pollen Allergy Rash/Hives Verified 05/28/24 17:13 dicyclomine AdvReac Diarrhea Verified 05/28/24 17:13 erythromycin base AdvReac Unknown Verified 05/28/24 17:13 fentanyl AdvReac Nausea & Verified 05/28/24 17:13 Vomiting lansoprazole [From Prevacid] AdvReac Nausea & Verified 05/28/24 17:13 Vomiting regadenoson [From Lexiscan] AdvReac Nausea & Verified 05/28/24 17:13 Vomiting Review of Systems ROS Statement: Those systems with pertinent positive or pertinent negative responses have been documented in the HPI. ROS Other: All systems not noted in ROS Statement are negative. Past Medical History Past Medical History: Asthma, Chest Pain / Angina, Eye Disorder, Fibromyalgia, GERD/Reflux, Musculoskeletal Disorder, Neurologic Disorder, Osteoarthritis (OA), Skin Disorder Additional Past Medical History / Comment(s): states fx L4, bulging discs, DDD, PALPITATIONS, DIVERTICULITIS, IBS, "SUPERIOR MESENTARY ARTERY SYNDROME", MS, MIGRAINES, OSTEOPOROSIS, PSORIASIS ON BOTTOM OF FEET, PULMONARY NODULES-dr. monitoring. burning in throat., states influenza in September and November 2019. Using a vaginal cream for irritation. History of Any Multi-Drug Resistant Organisms: None Reported Past Surgical History: Appendectomy, Cholecystectomy, Heart Catheterization, Hysterectomy Additional Past Surgical History / Comment(s): LT BREAST BX-NEG, COLONOSCOPY/ EGD, PAIN CLINIC PROCEDURES. Past Anesthesia/Blood Transfusion Reactions: Motion Sickness, Postoperative Nausea & Vomiting (PONV) Additional Past Anesthesia/Blood Transfusion Reaction / Comment(s): Claustrophobia Past Psychological History: Anxiety, Depression Smoking Status: Former smoker Past Alcohol Use History: None Reported Past Drug Use History: None Reported - Past Family History Mother Family Medical History: Congestive Heart Failure (CHF) Additional Family Medical History / Comment(s): Heart murmur. Father Family Medical History: Myocardial Infarction ([place]) General Exam - General Exam Comments Initial Comments: General: Well-appearing, nontoxic, no acute distress. Head: Normocephalic, atraumatic Eyes: PERRLA, EOMI ENT: Airway patent Chest: Nonlabored breathing Skin: No visual rash, normal skin tone Neuro: Alert and oriented 3 Musculoskeletal: No gross abnormalities Limitations: no limitations Course Vital Signs 05/28/24 17:09 Temperature 98.6 F Pulse Rate 75 Respiratory 20 Rate Blood Pressure 127/83 O2 Sat by Pulse 100 Oximetry Medical Decision Making - Medical Decision Making Was pt. sent in by a medical professional or institution ([facility], SOIL SAMPLER, urgent care, hospital, or penitentiary...) When possible be specific @ -No Did you speak to anyone other than the patient for history (EMS, parent, family, police, friend...)? What history was obtained from this source @ -No Did you review nursing and triage notes (agree or disagree)? Why? @ -I reviewed and agree with nursing and triage notes Were old charts reviewed (outside hosp., previous admission, EMS record, old EKG, old radiological studies, urgent care reports/EKG's, penitentiary records)? Report findings @ -No old charts were reviewed Differential Diagnosis (chest pain, altered mental status, abdominal pain women, abdominal pain men, vaginal bleeding, musculoskeletal, weakness, fever, dyspnea, syncope, headache, dizziness, GI bleed, back pain, seizure, CVA, palpatations, mental health)? @ -Differential Mental Health: Depression, anxiety, bipolar, psychosis, schizophrenia, borderline personality, situational depression, adjustment disorder, behavioral disorder, brain tumor, malingering, substance abuse, encephalopathy, medication reaction, dementia, hypothyroidism, degenerative neurologic disorder, lupus.... This is not meant to be all-inclusive list EKG interpreted by me (3pts min.). @ -None done X-rays interpreted by me (1pt min.). @ -None done CT interpreted by me (1pt min.). @ -None done U/S interpreted by me (1pt. min.). @ -None done What testing was considered but not performed or refused? (CT, X-rays, U/S, la bs)? Why? @ -None What meds were considered but not given or refused? Why? @ -None Was smoking cessation discussed for >3mins.? @ -No Were there social determinants of health that impacted care today? How? (Homelessness, low income, unemployed, alcoholism, drug addiction, transportation, low edu. Level, literacy, decrease access to med. care, long-term, rehab)? @ -No Was there de-escalation of care discussed even if they declined (Discuss DNR or withdrawal of care, Hospice)? DNR status @ -No What co-morbidities impacted this encounter? (DM, HTN, Smoking, COPD, CAD, Cancer, CVA, ARF, Chemo, Hep., AIDS, mental health diagnosis, sleep apnea, morbid obesity)? @ -None Was patient admitted / discharged? Hospital course, mention meds given and route, prescriptions, significant lab abnormalities, going to OR and other pertinent info. @ -73-year-old well-appearing female with stable vital signs presents to the ER for reported history of benzodiazepine withdrawals. She appears to be stable. She has stable vitals and has not allegedly had any Ativan for 17 days. Patient given 1 IM dose of Ativan. Discharged told to follow-up with her psychiatrist. Did you discuss the management of the patient with other professionals (professionals i.e. , PA, SOIL SAMPLER, lab, RT, psych nurse, hospital social worker, knot tying operator, teacher, co founder and chief strategy officer, mattress spring encaser)? Give summary @ -No Was critical care preformed (if so, how long)? @ -No Undiagnosed new problem with uncertain prognosis? @ -No Drug Therapy requiring intensive monitoring for toxicity (Heparin, Nitro, Insulin, Cardizem)? @ -No Were any procedures done? @ -No Diagnosis/symptom? Acute, or Chronic, or Acute on Chronic? Uncomplicated (without systemic symptoms) or Complicated (systemic symptoms)? @ -Anxiety reaction Side effects of treatment? @ -No Exacerbation, Progression, or Severe Exacerbation? @ -No Poses a threat to life or bodily function? How? (Chest pain, [place], [place], pneumonia, PE, COPD, DKA, ARF, appy, cholecystitis, CVA, Diverticulitis, Homicidal, Suicidal, threat to staff... and all critical care pts) @ -No Disposition Clinical Impression: Acute anxiety Disposition: HOME SELF-CARE Condition: Good Instructions (If sedation given, give patient instructions): Generalized Anxiety Disorder (ED) Is patient prescribed a controlled substance at d/c from ED?: No Referrals: Brandie Child MD [Primary Care Provider] - 1-2 days Time of Disposition: 17:29
[2024-05-28] MEDS: LORazepam 2 MG/ML INJ IM STA (17:33)
[2024-05-28] MEDS: ONDANSETRON ODT 4 MG TAB PO STA (17:37)
== END 2024-05-28 17:40 | disposition home or self-care (01) ==
LOC: EC 17:07
CPT/HCPCS: 96372; 99284

== ENCOUNTER 2024-06-16 13:37 | Observation (INO) | payer MEDICARE, OTHER ==
--- NOTE | 2024-06-16 14:14 | ED ---
General Adult HPI - General Chief complaint: Chest Pain Stated complaint: Chest pain,[place] Time Seen by Provider: 06/16/24 13:54 Source: patient, EMS, RN notes reviewed Mode of arrival: EMS Limitations: no limitations - History of Present Illness Initial comments: Patient is a 73-year-old female present to the emergency department with chest discomfort. Onset of symptoms was 2 days ago. Discomfort feels like pressure and there is some radiation towards the back. Patient has had nausea with several episodes of vomiting. Patient has felt constipated recently. No abdominal pain. No dyspnea or diaphoresis. No history of similar symptoms previously. No history of known cardiac disease - Related Data Home Medications Medication Instructions Recorded Confirmed ARIPiprazole [Abilify] 2 mg PO HS 04/27/17 02/25/20 Amitriptyline HCl [Elavil] 75 mg PO HS 04/27/17 02/25/20 LORazepam [Ativan] 1 mg PO TID PRN 04/27/17 02/25/20 Loratadine [Claritin] 10 mg PO DAILY 04/27/17 02/25/20 Atorvastatin [Lipitor] 20 mg PO DAILY 03/28/18 02/25/20 Acetaminophen [Tylenol Extra 500 mg PO DIRECTED PRN 06/24/19 02/25/20 Strength] Cholecalciferol [Vitamin D3 (25 5,000 units PO DAILY 09/11/19 02/25/20 Mcg = 1000 Iu)] Prilosec (Unknown Dose) 20 mg PO DAILY 01/19/20 02/25/20 Clotrimazole Cream [Lotrimin Cream] 1 applic TOPICAL DAILY 01/28/20 02/25/20 Previous Rx's Medication Instructions Recorded LORazepam [Ativan] 1 mg PO BID #20 tab 05/03/24 LORazepam [Ativan] 1 mg PO BID 3 Days #6 tab 05/13/24 predniSONE [Deltasone] 20 mg PO BID 5 Days #10 tab 05/15/24 Allergies Allergy/AdvReac Type Severity Reaction Status Date / Time codeine Allergy Nausea & Verified 05/28/24 17:13 Vomiting, Rash/Hives doxycycline Allergy Nausea & Verified 05/28/24 17:13 Vomiting grass pollen Allergy Unknown Verified 05/28/24 17:13 hydrocodone [From Vicodin] Allergy Nausea & Verified 05/28/24 17:13 Vomiting hydromorphone [From Dilaudid] Allergy Rash/Hives Verified 05/28/24 17:13 Iodinated Contrast Media Allergy Anaphylaxis Verified 05/28/24 17:13 [Iodinated Contrast- Oral and IV Dye] Iodine and Iodide Containing Allergy GI BLEEDING Verified 05/28/24 17:13 Produc lidocaine Allergy Rash/Hives Verified 05/28/24 17:13 mold Allergy Rash/Hives Verified 05/28/24 17:13 morphine Allergy Rash/Hives Verified 05/28/24 17:13 neomycin Allergy Swelling Verified 05/28/24 17:13 with eye drop Penicillins Allergy Rash/Hives Verified 05/28/24 17:13 ragweed pollen Allergy Rash/Hives Verified 05/28/24 17:13 tree and shrub pollen Allergy Rash/Hives Verified 05/28/24 17:13 dicyclomine AdvReac Diarrhea Verified 05/28/24 17:13 erythromycin base AdvReac Unknown Verified 05/28/24 17:13 fentanyl AdvReac Nausea & Verified 05/28/24 17:13 Vomiting lansoprazole [From Prevacid] AdvReac Nausea & Verified 05/28/24 17:13 Vomiting regadenoson [From Lexiscan] AdvReac Nausea & Verified 05/28/24 17:13 Vomiting Review of Systems ROS Statement: Those systems with pertinent positive or pertinent negative responses have been documented in the HPI. ROS Other: All systems not noted in ROS Statement are negative. Constitutional: Denies: fever Eyes: Denies: eye pain ENT: Denies: ear pain Respiratory: Denies: cough, dyspnea Cardiovascular: Reports: as per HPI, chest pain Gastrointestinal: Reports: as per HPI, nausea, vomiting, constipation Genitourinary: Denies: dysuria Past Medical History Past Medical History: Asthma, Chest Pain / Angina, Eye Disorder, Fibromyalgia, GERD/Reflux, Musculoskeletal Disorder, Neurologic Disorder, Osteoarthritis (OA), Skin Disorder Additional Past Medical History / Comment(s): states fx L4, bulging discs, DDD, PALPITATIONS, DIVERTICULITIS, IBS, "SUPERIOR MESENTARY ARTERY SYNDROME", MS, MIGRAINES, OSTEOPOROSIS, PSORIASIS ON BOTTOM OF FEET, PULMONARY NODULES-drShireen kwong. burning in throat., states influenza in September and November 2019. Using a vaginal cream for irritation. History of Any Multi-Drug Resistant Organisms: None Reported Past Surgical History: Appendectomy, Cholecystectomy, Heart Catheterization, Hysterectomy Additional Past Surgical History / Comment(s): LT BREAST BX-NEG, COLONOSCOPY/ EGD, PAIN CLINIC PROCEDURES. Past Anesthesia/Blood Transfusion Reactions: Motion Sickness, Postoperative Nausea & Vomiting (PONV) Additional Past Anesthesia/Blood Transfusion Reaction / Comment(s): Claustrophobia Past Psychological History: Anxiety, Depression Smoking Status: Former smoker Past Alcohol Use History: None Reported Past Drug Use History: None Reported - Past Family History Mother Family Medical History: Congestive Heart Failure (CHF) Additional Family Medical History / Comment(s): Heart murmur. Father Family Medical History: Myocardial Infarction ([place]) General Exam Limitations: no limitations General appearance: alert, in no apparent distress Head exam: Present: normocephalic Eye exam: Present: normal appearance Neck exam: Present: normal inspection Respiratory exam: Present: normal lung sounds bilaterally Cardiovascular Exam: Present: regular rate, normal rhythm, normal heart sounds Expanded Peripheral pulses: 2+: Radial (R), Radial (L), Dorsalis Pedis (R), Dorsalis Pedis (L) GI/Abdominal exam: Present: soft, normal bowel sounds. Absent: distended, tenderness, guarding, rebound, rigid, pulsatile mass Extremities exam: Present: normal inspection. Absent: pedal edema, calf tenderness Neurological exam: Present: alert Psychiatric exam: Present: normal affect, normal mood Skin exam: Present: normal color Course Vital Signs 06/16/24 06/16/24 06/16/24 13:38 13:45 13:47 Temperature 99.3 F Pulse Rate 65 60 Pulse Rate [ 57 L Manufacturer Representative ] Respiratory 18 18 Rate Blood Pressure 151/85 156/78 O2 Sat by Pulse 98 98 Oximetry 06/16/24 14:45 Temperature Pulse Rate 58 L Pulse Rate [ Manufacturer Representative ] Respiratory 18 Rate Blood Pressure 133/74 O2 Sat by Pulse 98 Oximetry EKG Findings - EKG Results: EKG: interpreted by ERMD, sinus rhythm, normal axis, normal QRS, normal ST/T EKG shows: bradycardia Medical Decision Making - Medical Decision Making Was pt. sent in by a medical professional or institution (, PA, FIELD REPRESENTATIVE/HEALTH EDUCATION, urgent care, hospital, or custodial...) When possible be specific @ -No Did you speak to anyone other than the patient for history (EMS, parent, family, police, friend...)? What history was obtained from this source @ -No Did you review nursing and triage notes (agree or disagree)? Why? @ -I reviewed and agree with nursing and triage notes Were old charts reviewed (outside hosp., previous admission, EMS record, old EKG, old radiological studies, urgent care reports/EKG's, custodial records)? Report findings @ -No old charts were reviewed Differential Diagnosis (chest pain, altered mental status, abdominal pain women, abdominal pain men, vaginal bleeding, weakness, fever, dyspnea, syncope, headache, dizziness, GI bleed, back pain, seizure, CVA, palpatations, mental health, musculoskeletal)? @ -Differential Chest Pain: Stable Angina, Unstable Angina, STEMI, NSTEMI Aortic Dissection, Pneumothorax, Musculoskeletal, Esophageal Spasm GERD, Cholecystitis, Pancreatitis, Zoster, this is not meant to be an all-inclusive list. EKG interpreted by me (3pts min.). @ -As above X-rays interpreted by me (1pt min.). @ -Chest x-ray and abdominal x-ray did not reveal acute abnormality CT interpreted by me (1pt min.). @ -None done U/S interpreted by me (1pt. min.). @ -None done What testing was considered but not performed or refused? (CT, X-rays, U/S, labs)? Why? @ -None What meds were considered but not given or refused? Why? @ -None Did you discuss the management of the patient with other professionals (professionals i.e. , PA, FIELD REPRESENTATIVE/HEALTH EDUCATION, lab, RT, psych nurse, executive secretary social welfare, accounting office manager, teacher, chief sustainability officer, senior case manager)? Give summary @ -Case was discussed with Dr. Tierney who will admit covering Dr. Mcdaniel Was smoking cessation discussed for >3mins.? @ -No Was critical care preformed (if so, how long)? @ -No Were there social determinants of health that impacted care today? How? (Homelessness, low income, unemployed, alcoholism, drug addiction, transp ortation, low edu. Level, literacy, decrease access to med. care, residential, rehab)? @ -No Was there de-escalation of care discussed even if they declined (Discuss DNR or withdrawal of care, Hospice)? DNR status @ -No What co-morbidities impacted this encounter? (DM, HTN, Smoking, COPD, CAD, Cancer, CVA, ARF, Chemo, Hep., AIDS, mental health diagnosis, sleep apnea, morbid obesity)? @ -None Was patient admitted / discharged? Hospital course, mention meds given and route, prescriptions, significant lab abnormalities, going to OR and other pertinent info. @ -Patient presents with chest discomfort and nausea and vomiting. Initial evaluation unremarkable. Patient will be admitted with cardiac consult. Admission orders written. Undiagnosed new problem with uncertain prognosis? @ -No Drug Therapy requiring intensive monitoring for toxicity (Heparin, Nitro, Insulin, Cardizem)? @ -No Were any procedures done? @ -No Diagnosis/symptom? @ -Chest pain, vomiting Acute, or Chronic, or Acute on Chronic? @ -, Acute Uncomplicated (without systemic symptoms) or Complicated (systemic symptoms)? @ -Default Side effects of treatment? @ -No Exacerbation, Progression, or Severe Exacerbation? @ -No Poses a threat to life or bodily function? How? (Chest pain, [place], [place], pneumonia, PE, COPD, DKA, ARF, appy, cholecystitis, CVA, Diverticulitis, Homicidal, Suicidal, threat to staff... and all critical care pts) @ -Threat to cardiac function - Lab Data Result diagrams: 06/16/24 14:21 06/16/24 14:21 Lab Results 06/16/24 06/16/24 06/16/24 Range/Units 14:21 14:21 14:21 WBC 6.6 (3.8-10.6) k/uL RBC 4.57 (3.80-5.40) m/uL Hgb 14.9 (11.4-16.0) gm/dL Hct 44.5 (34.0-46.0) % MCV 97.4 (80.0-100.0) fL MCH 32.6 (25.0-35.0) pg MCHC 33.4 (31.0-37.0) g/dL RDW 13.3 (11.5-15.5) % Plt Count 222 (150-450) k/uL MPV 8.1 Neutrophils % 58 % Lymphocytes % 35 % Monocytes % 5 % Eosinophils % 1 % Basophils % 1 % Neutrophils # 3.8 (1.3-7.7) k/uL Lymphocytes # 2.3 (1.0-4.8) k/uL Monocytes # 0.3 (0-1.0) k/uL Eosinophils # 0.0 (0-0.7) k/uL Basophils # 0.0 (0-0.2) k/uL PT 10.5 (10.0-12.5) sec INR 0.9 (<1.2) APTT 24.5 (22.0-30.0) sec D-Dimer 0.44 (<0.60) mg/L FEU Sodium 139 (137-145) mmol/L Potassium 4.2 (3.5-5.1) mmol/L Chloride 110 H (98-107) mmol/L Carbon Dioxide 21 L (22-30) mmol/L Anion Gap 8 mmol/L BUN 19 H (7-17) mg/dL Creatinine 0.86 (0.52-1.04) mg/dL Est GFR (CKD-EPI)AfAm 79 (>60 ml/min/1.73 sqM) Est GFR (CKD-EPI)NonAf 69 (>60 ml/min/1.73 sqM) Glucose 100 H (74-99) mg/dL Calcium 9.6 (8.4-10.2) mg/dL Magnesium 2.0 (1.6-2.3) mg/dL Total Bilirubin 0.9 (0.2-1.3) mg/dL AST 26 (14-36) U/L ALT 20 (4-34) U/L Alkaline Phosphatase 120 (38-126) U/L Troponin I (0.000-0.034) ng/mL Total Protein 8.2 (6.3-8.2) g/dL Albumin 4.7 (3.5-5.0) g/dL Amylase 53 (30-110) U/L Lipase 81 (23-300) U/L 11/18/24 Range/Units 14:21 WBC (3.8-10.6) k/uL RBC (3.80-5.40) m/uL Hgb (11.4-16.0) gm/dL Hct (34.0-46.0) % MCV (80.0-100.0) fL MCH (25.0-35.0) pg MCHC (31.0-37.0) g/dL RDW (11.5-15.5) % Plt Count (150-450) k/uL MPV Neutrophils % % Lymphocytes % % Monocytes % % Eosinophils % % Basophils % % Neutrophils # (1.3-7.7) k/uL Lymphocytes # (1.0-4.8) k/uL Monocytes # (0-1.0) k/uL Eosinophils # (0-0.7) k/uL Basophils # (0-0.2) k/uL PT (10.0-12.5) sec INR (<1.2) APTT (22.0-30.0) sec D-Dimer (<0.60) mg/L FEU Sodium (137-145) mmol/L Potassium (3.5-5.1) mmol/L Chloride (98-107) mmol/L Carbon Dioxide (22-30) mmol/L Anion Gap mmol/L BUN (7-17) mg/dL Creatinine (0.52-1.04) mg/dL Est GFR (CKD-EPI)AfAm (>60 ml/min/1.73 sqM) Est GFR (CKD-EPI)NonAf (>60 ml/min/1.73 sqM) Glucose (74-99) mg/dL Calcium (8.4-10.2) mg/dL Magnesium (1.6-2.3) mg/dL Total Bilirubin (0.2-1.3) mg/dL AST (14-36) U/L ALT (4-34) U/L Alkaline Phosphatase (38-126) U/L Troponin I <0.012 (0.000-0.034) ng/mL Total Protein (6.3-8.2) g/dL Albumin (3.5-5.0) g/dL Amylase (30-110) U/L Lipase (23-300) U/L Disposition Clinical Impression: Chest pain, Vomiting Disposition: ADMITTED IP TO THIS HOSP Is patient prescribed a controlled substance at d/c from ED?: No Referrals: Brandie Child MD [Primary Care Provider] - 1-2 days Time of Disposition: 15:41
[2024-06-16 14:35] LABS: RBC 4.57 m/uL (3.80-5.40); WBC 6.6 k/uL (3.8-10.6)
[2024-06-16 14:36] LABS: Basophils % (A) 1 %; Eosinophils % (A) 1 %; HCT 44.5 % (34.0-46.0); HGB 14.9 gm/dL (11.4-16.0); Lymphocytes # (A) 2.3 k/uL (1.0-4.8); Lymphocytes % (A) 35 %; MCH 32.6 pg (25.0-35.0); MCHC 33.4 g/dL (31.0-37.0); MCV 97.4 fL (80.0-100.0); Mean Platelet Volume 8.1; Monocytes # (A) 0.3 k/uL (0-1.0); Monocytes % (A) 5 %; Neutrophils # (A) 3.8 k/uL (1.3-7.7); Neutrophils % (A) 58 %; Platelet Count 222 k/uL (150-450); RDW 13.3 % (11.5-15.5)
[2024-06-16 14:47] LABS: ALT 20 U/L (4-34); AST 26 U/L (14-36); African American GFR (CKD) 79 (>60 ml/min/1.73 sqM); Albumin 4.7 g/dL (3.5-5.0); Alkaline Phosphatase 120 U/L (38-126); Amylase 53 U/L (30-110); Anion Gap 8 mmol/L; Blood Urea Nitrogen 19 mg/dL (7-17); Calcium 9.6 mg/dL (8.4-10.2); Carbon Dioxide 21 mmol/L (22-30); Chloride 110 mmol/L (98-107); Glucose 100 mg/dL (74-99); Lipase 81 U/L (23-300); Non-African American GFR(CKD) 69 (>60 ml/min/1.73 sqM); Potassium 4.2 mmol/L (3.5-5.1); Sodium 139 mmol/L (137-145); Total Bilirubin 0.9 mg/dL (0.2-1.3); Total Protein 8.2 g/dL (6.3-8.2)
[2024-06-16] MEDS: ASPIRIN 81 MG PO STA (14:48)
[2024-06-16 14:49] LABS: INR 0.9 (<1.2); Partial Thromboplastin Time 24.5 sec (22.0-30.0); Prothrombin Time 10.5 sec (10.0-12.5)
[2024-06-16] MEDS: NITROGLYCERIN SL TABS 0.4 MG TAB SUBLINGUAL STA ×3 (15:10→16:39)
[2024-06-16] MEDS: FAMOTIDINE 20 MG/2 ML VIAL IV STA (15:12)
[2024-06-16] MEDS: ONDANSETRON 4 MG/2 ML VIAL IVP STA (15:12)
--- NOTE | 2024-06-16 15:17 | XR ---
EXAMINATION TYPE: XR chest 2V DATE OF EXAM: 06/16/2024 CLINICAL HISTORY: Chest pain TECHNIQUE: Frontal and lateral views of the chest are obtained. COMPARISON: 08/19/2012 FINDINGS: There is no focal air space opacity, pleural effusion, or pneumothorax seen. The cardiac silhouette size is within normal limits. The osseous structures are intact. IMPRESSION: No acute cardiopulmonary process. [facility], , 06/16/2024 3:15 PM
--- NOTE | 2024-06-16 15:19 | XR ---
EXAMINATION TYPE: XR abdomen 1V DATE OF EXAM: 06/16/2024 3:03 PM COMPARISON: None. CLINICAL INDICATION: Female, 73 years old with history of n/v and constipation, TECHNIQUE: Single view of the abdomen. FINDINGS: Small bowel demonstrates no evidence for dilatation or air fluid levels. Gas and fecal material is seen in non-distended colon. No convincing evidence for pneumoperitoneum. No unusual calcifications. The lung bases are clear. The osseous structures are intact. IMPRESSION: 1. Overall nonobstructive bowel gas pattern. [facility], , 06/16/2024 3:16 PM
[2024-06-16] MEDS: MAG HYDROX/AL HYDROX/SIMETH 30 ML, HYOSCYAMINE ELIXIR 10 ML PO STA (15:54)
[2024-06-16] MEDS: PANTOPRAZOLE 40 MG/10 ML VIAL IVP SCH (16:42)
[2024-06-16] MEDS: QUEtiapine 25 MG TAB PO SCH (20:19)
[2024-06-16] MEDS: MIRTAZAPINE 15 MG TAB PO SCH (20:19)
[2024-06-16] MEDS: NITROGLYCERIN SL TABS 0.4 MG TAB SUBLINGUAL PRN (20:22)
[2024-06-16] MEDS: hydrOXYzine HCL 10 MG TAB PO PRN (20:31)
[2024-06-16] MEDS: ONDANSETRON 4 MG/2 ML VIAL IVP PRN (23:49)
[2024-06-17] MEDS: IBUPROFEN 400 MG TAB PO PRN (01:33)
--- NOTE | 2024-06-17 02:12 | HP ---
HISTORY AND PHYSICAL CHIEF COMPLAINT: Chest pain. HISTORY OF PRESENT ILLNESS: This is a 73-year-old woman with a past medical history of multiple medical problems, was admitted with chest pain. The patient had a tight feeling in the lower part of the chest and upper abdomen. The patient is constipated. The patient also notes to have multiple other symptomatology also. The patient came to [facility] and the patient had abdominal chest x-rays, which showed no acute changes. The patient is admitted for further evaluation and treatment. EKG showed normal sinus rhythm. PAST MEDICAL HISTORY: History of asthma, fibromyalgia, multiple medical issues. Rest of the history and rest of the chart is also noted. HOME MEDICATIONS: Prednisone. Doses and rest of medications noted. Medications are not confirmed yet. ALLERGIES: Multiple allergies including doxycycline. Rest of the allergies also noted. FAMILY HISTORY: History of CHF in the family. SOCIAL HISTORY: Previous history of smoking. REVIEW OF SYSTEMS: Fourteen-point review of systems is negative except as mentioned earlier. PHYSICAL EXAMINATION: VITAL SIGNS: Pulse is 58, blood pressure 130/74, respirations 18. HEENT: Conjunctivae normal. NECK: No JVD. CARDIOVASCULAR: S1, S2. RESPIRATIONS: Breath sounds diminished at the bases. No rhonchi. No crackles. ABDOMEN: Soft, nontender. LEGS: No edema. NERVOUS SYSTEM: Nonfocal. SKIN: No ulcer, rash, bleeding. JOINTS: No active deforming arthropathy. LABORATORY DATA: CBC within normal limits. Rest of the labs are noted. ASSESSMENT: 1. Chest pain for evaluation. 2. Upper abdominal pain, possible acute gastritis. 3. History of asthma. 4. Fibromyalgia. 5. Anxiety and depression. 6. Multiple complex medical issues. RECOMMENDATIONS AND DISCUSSION: This is a 73-year-old woman, who presented with multiple medical problems. I would recommend to continue to rule out myocardial infarction. Cardiology consultation, possibly stress test. I would also recommend symptomatic treatment for the abdominal symptoms and I would also recommend ultrasound of the abdomen also. Guarded prognosis. Further recommendations to follow. See orders for further details. MMODL / IJN: [id number] /
[2024-06-17] MEDS: PANTOPRAZOLE 40 MG TABLET PO SCH (06:54)
[2024-06-17] MEDS ORDERED: ASPIRIN 325 MG TAB PO SCH (09:00)
[2024-06-17 09:05] LABS: ALT 14 U/L (8-44); AST 18 U/L (13-35); Albumin 3.8 g/dL (3.8-4.9); Albumin/Globulin Ratio 1.81 Ratio (1.60-3.17); Alkaline Phosphatase 98 U/L (41-126); Carbon Dioxide 21.8 mmol/L (21.6-31.8); Chloride 109 mmol/L (96-109); Chol/HDL Ratio 7.01 Ratio; Globulin 2.1 g/dL (1.6-3.3); Glucose 100 mg/dL (70-110); LDL Cholesterol,Calculated 142.2 mg/dL (0.0-131.0); Potassium 3.7 mmol/L (3.5-5.5); Sodium 142 mmol/L (135-145); Total Bilirubin 0.2 mg/dL (0.3-1.2); Total Protein 5.9 g/dL (6.2-8.2)
[2024-06-17] MEDS: DOCUSATE 100 MG CAP PO PRN (09:36)
[2024-06-17] MEDS: ASPIRIN 81 MG PO SCH (09:36)
[2024-06-17] MEDS: METOPROLOL SUCCINATE (ER) 25 MG TAB.ER.24H PO SCH (09:36)
[2024-06-17] MEDS: SENNOSIDES 8.6 MG TAB PO SCH (09:41)
[2024-06-17 10:19] LABS: Basophils # (A) 0.05 X 10*3/uL (0.00-0.10); Basophils % (A) 0.6 %; Eosinophils # (A) 0.18 X 10*3/uL (0.04-0.35); Eosinophils % (A) 2.2 %; HCT 36.9 % (37.2-46.3); HGB 12.4 g/dL (12.0-15.0); Lymphocytes % (A) 49.2 %; MCH 32.8 pg (27.0-32.0); MCHC 33.6 g/dL (32.0-37.0); MCV 97.6 FL (80.0-97.0); Mean Platelet Volume 11.1 FL (9.5-12.2); Monocytes # (A) 0.83 X 10*3/uL (0.20-1.00); NRBC Per 100 WBC 0 X 10*3/uL (0.00-0.01); Neutrophils # (A) 3.15 X 10*3/uL (1.80-7.70); Neutrophils % (A) 37.8 %; Platelet Count 185 X 10*3/uL (140-440); RBC 3.78 X 10*6/uL (4.10-5.20); RDW 13.7 % (11.5-14.5); WBC 8.33 X 10*3/uL (4.50-10.00)
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
[2024-06-17] MEDS: LORazepam 1 MG TAB PO PRN (13:42)
[2024-06-17] MEDS: LACTULOSE 20 GM/30 ML CUP PO SCH (13:42)
[2024-06-17] MEDS: BARIUM SULFATE 2% - 450 ML ORAL.SUSP BOTTLE PO PRN (14:42)
--- NOTE | 2024-06-17 20:03 | CT ---
EXAMINATION TYPE: CT abdomen pelvis wo con DATE OF EXAM: 06/17/2024 6:52 PM COMPARISON: None. CLINICAL INDICATION: Female, 73 years old with history of Abdominal pain, constipation; Generalized a bdominal pain and constipation. TECHNIQUE: Axial CT abdomen pelvis wo con;Sagittal and coronal reformats were created on a separate workstation. Contrast used: mL of , (none if empty) Oral contrast used: with Oral Contrast (none if empty) CT DLP: 396.1 mGycm, Automated exposure control for dose reduction was used. FINDINGS: LOWER CHEST: Unremarkable ABDOMEN LIVER: Unremarkable GALLBLADDER AND BILE DUCTS: The gallbladder is surgically absent. PANCREAS: Unremarkable. SPLEEN: Unremarkable. ADRENAL GLANDS: Unremarkable. KIDNEYS AND URETERS: No evidence of hydronephrosis or renal calculus. The ureters are unremarkable. PELVIS BLADDER: No evidence for wall thickening or mass given limitations of exam. REPRODUCTIVE: The uterus is surgically absent. ABDOMEN & PELVIS STOMACH AND BOWEL: No evidence of bowel obstruction. PERITONEUM/RETROPERITONEUM: No evidence of pneumoperitoneum or free fluid. VASCULATURE: No evidence of aortic aneurysm. MUSCULOSKELETAL: No acute osseous abnormalities LYMPH NODES: No gross evidence for lymphadenopathy. SOFT TISSUE/ABDOMINAL WALL: Unremarkable IMPRESSION: No evidence for acute abdominal process. [facility] Ritchie Love, , 06/17/2024 8:01 PM
[2024-06-17] MEDS: NYSTATIN 100,000 UNIT/GM POWD 15 GM TOPICAL SCH (21:12)
[2024-06-17] MEDS: PANTOPRAZOLE 40 MG/10 ML VIAL IVP SCH (21:13)
[2024-06-17] MEDS: ATORVASTATIN 40 MG TAB PO SCH (21:13)
--- NOTE | 2024-06-18 06:09 | PN ---
PROGRESS NOTE DATE OF SERVICE: 06/17/2024 SUBJECTIVE: This is a 73-year-old woman, who was admitted with chest pain, also had abdominal symptoms. The patient also has significant nausea. The patient is also an element of anxiety. It is not clear the entire symptoms are attributed to anxiety. Cardiology is following the patient closely also. PAST MEDICAL HISTORY: Reviewed. REVIEW OF SYSTEMS: A 14-point review of systems is negative except as mentioned earlier. CURRENT MEDICATIONS: Reviewed include Atarax. Dose and rest of medications reviewed. PHYSICAL EXAMINATION: VITAL SIGNS: Pulse is 58, blood pressure 130/74, respirations 16. CHEST: Clear to auscultation. CARDIOVASCULAR: S1, S2. ABDOMEN: Soft. Mild diffuse tenderness in the upper abdomen. No guarding. No rigidity. No mass palpable. LABORATORY DATA: Noted. Cholesterol is elevated. Amylase and lipase are normal. ASSESSMENT: 1. Chest pain for evaluation, rule out unstable angina. 2. Abdominal pain for evaluation, possible acute gastritis. 3. History of asthma. 4. Anxiety. 5. Fibromyalgia. 6. Multiple complex medical issues. RECOMMENDATIONS: Recommend to continue current medications, continue symptomatic treatment. Continue with Ativan high dose, otherwise as mentioned earlier. I would also recommend CT scan of the abdomen and pelvis to ensure normalcy. Continue with proton pump inhibitors. Closely follow with Cardiology. DVT prophylaxis. Prognosis extremely guarded because of multiple complex medical issues. Further recommendations to follow. D-dimer is normal. I would recommend a sedimentation rate and CRP also. MMODL / IJN: [id number] /
[2024-06-18 08:44] LABS: Basophils # (A) 0.06 X 10*3/uL (0.00-0.10); Basophils % (A) 0.8 %; Eosinophils # (A) 0.18 X 10*3/uL (0.04-0.35); Eosinophils % (A) 2.3 %; HCT 37.3 % (37.2-46.3); HGB 12.5 g/dL (12.0-15.0); Lymphocytes # (A) 4.26 X 10*3/uL (0.90-5.00); Lymphocytes % (A) 54.1 %; MCH 32.4 pg (27.0-32.0); MCHC 33.5 g/dL (32.0-37.0); MCV 96.6 FL (80.0-97.0); Mean Platelet Volume 10.8 FL (9.5-12.2); Monocytes # (A) 0.72 X 10*3/uL (0.20-1.00); Monocytes % (A) 9.1 %; NRBC Per 100 WBC 0 X 10*3/uL (0.00-0.01); Neutrophils # (A) 2.63 X 10*3/uL (1.80-7.70); Neutrophils % (A) 33.3 %; Platelet Count 189 X 10*3/uL (140-440); RBC 3.86 X 10*6/uL (4.10-5.20); RDW 13.9 % (11.5-14.5); WBC 7.88 X 10*3/uL (4.50-10.00)
[2024-06-18 08:58] LABS: ALT 13 U/L (8-44); AST 16 U/L (13-35); Albumin 3.7 g/dL (3.8-4.9); Albumin/Globulin Ratio 1.68 Ratio (1.60-3.17); Alkaline Phosphatase 93 U/L (41-126); Blood Urea Nitrogen 17.1 mg/dL (9.0-27.0); Calcium 8.7 mg/dL (8.7-10.3); Carbon Dioxide 21.1 mmol/L (21.6-31.8); Chloride 109 mmol/L (96-109); Globulin 2.2 g/dL (1.6-3.3); Glucose 138 mg/dL (70-110); Potassium 3.3 mmol/L (3.5-5.5); Sodium 141 mmol/L (135-145); Total Bilirubin <0.2 mg/dL (0.3-1.2); Total Protein 5.9 g/dL (6.2-8.2)
[2024-06-18] MEDS: PEG 3350 (236 GM/BTL) + LYTES 4,000 ML BOTTLE PO ONE (12:23)
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
--- NOTE | 2024-06-18 13:01 | P.PN ---
Subjective HISTORY OF PRESENT ILLNESS: This is a 73-year-old female with a past medical history significant for multiple sclerosis, anxiety, depression, and former nicotine dependence. Patient does not follow with a chemical sales representative, she used to follow with Dr. Chang and was last seen in 2019. We have been asked to see the patient in consultation for chest pain. Patient examined at the bedside. Patient presented to the hospital with a multitude of symptoms. Patient states that she was living with a family member in [place] and came back to [place] in April. She states that she feels like she is "falling apart". She states that she is mentally and physically worn out. Patient is very tearful and crying at the time of examination. She reports she was on Ativan and her physician stopped it "cold turkey". She states that she is feeling very anxious. She states that she is having racing thoughts. She states that she has not been able to sleep. She also reports that she is not eating. She complains of abdominal pain this morning and states that she has not had a bowel movement in 2 weeks. He reports having palpitations and chest pain yesterday but she states she is unsure if this is related to her anxiety. She also reports that she has a UTI that she has had since April. DIAGNOSTICS: - EKG reveals sinus mechanism with no signs of acute ischemia - Chest xray negative for acute process - Laboratory data: WBC 8.33. Hemoglobin 12.4. Platelet count 185. D-dimer 0.44. Sodium 142. Potassium 3.7. BUN 18. Creatinine 0.8. Troponin negative x 3. LDL 142. - Current home cardiac medications include metoprolol succinate 12.5 mg daily - No previous echocardiogram, stress test, or cardiac catheterization available for review. However patient used to follow in the office in 2019 and documentation from cardiology office states that patient had a heart cath in 2017 without evidence of obstructive CAD. 06/18/2024 Patient examined this morning at the bedside. Patient states she is feeling better today and has less anxiety. She denies any shortness of breath or cough. She denies any chest pain. She does report having a warm feeling in her chest this morning. Vital signs are stable. Patient has been evaluated by general surgery and is scheduled for colonoscopy tomorrow. PHYSICAL EXAM: VITAL SIGNS: Reviewed. GENERAL: Well-developed in no acute distress. HEENT: Head is normocephalic. Pupils are equal, round. Sclerae anicteric. Mucous membranes of the mouth are moist. Neck supple. No JVD or thyromegaly LUNGS: Respirations even and unlabored. Lungs essentially clear to auscultation bilaterally. HEART: Regular rate and rhythm. S1 and S2 heard. ABDOMEN: Soft. Nondistended. Nontender. EXTREMITIES: Normal range of motion. No clubbing or cyanosis. Peripheral pulses intact. No lower extremity edema NEUROLOGIC: Awake and alert. ASSESSMENT: Atypical chest pain, troponin negative x 3 History of cardiac catheterization in 2017 without obstructive CAD, per cardiology office records Hyperlipidemia, LDL 142 Anxiety Constipation, patient reports no bowel movement for 2 weeks Reported decreased oral intake Reported insomnia Reported UTI since April per patient, no UA available History of multiple sclerosis, diagnosed in September, per patient Depression Former nicotine dependence PLAN: An acute coronary event has been ruled out 2D echo ordered. Await results. Continue aspirin and atorvastatin Will plan for outpatient stress testing General Surgery following. Patient to undergo colonoscopy tomorrow Patient is currently stable from a cardiac perspective Further recommendations pending patient course Nurse practitioner note has been reviewed by physician. Signing provider agrees with the documented findings, assessment, and plan of care documented by POWER WHEELCHAIR MECHANIC as a scribe Objective - Vital Signs Vital signs: Vital Signs Temp 98.1 F 06/18/24 06:54 Pulse 67 06/18/24 10:33 Resp 15 06/18/24 06:54 BP 103/63 06/18/24 10:33 Pulse Ox 95 06/18/24 07:49 FiO2 Intake & Output 06/17/24 06/18/24 06/18/24 18:59 06:59 18:59 Intake Total 222 Output Total 350 Balance -128 Intake: Oral 222 Output: Urine 350 Other: Voiding Method External Catheter Toilet # Voids 1 # Bowel Movements 1 - Labs CBC & Chem 7: 06/18/24 03:57 06/18/24 03:57 Labs: Abnormal Lab Results - Last 24 Hours (Table) 06/18/24 06/18/24 Range/Units 03:57 03:57 RBC 3.86 L (4.10-5.20) X 10*6/uL MCH 32.4 H (27.0-32.0) pg Potassium 3.3 L (3.5-5.5) mmol/L Carbon Dioxide 21.1 L (21.6-31.8) mmol/L Glucose 138 H (70-110) mg/dL Total Bilirubin <0.2 L (0.3-1.2) mg/dL Total Protein 5.9 L (6.2-8.2) g/dL Albumin 3.7 L (3.8-4.9) g/dL
[2024-06-18] MEDS: POTASSIUM CHLORIDE ER 20 MEQ TAB.ER PO STA (14:09)
--- NOTE | 2024-06-18 17:50 | CA ---
Transthoracic Echo Report Name: Annette Bush Age: 73 Gender: F : 1950 Exam Date: 06/17/2024 14:05 Exam Location: [facility] Ht (in): 66 Wt (lb): 145 Ordering Physician: Juani Zimmerman Attending/Referring Phys: [id number], Elsie Disk Recoater Evelyn Fuentes RDCS Procedure CPT: Indications: LV function, CP Cardiac Hx: Technical Quality: Fair Contrast 1: Total Dose (mL): Contrast 2: Total Dose (mL): MEASUREMENTS (Male / Female) Normal Values 2D ECHO LV Diastolic Diameter PLAX 4.7 cm 4.2 - 5.9 / 3.9 - 5.3 cm LV Systolic Diameter PLAX 3.1 cm IVS Diastolic Thickness 0.8 cm 0.6 - 1.0 / 0.6 - 0.9 cm LVPW Diastolic Thickness 0.9 cm 0.6 - 1.0 / 0.6 - 0.9 cm LV Relative Wall Thickness 0.3 LVOT Diameter 2.1 cm LV Diastolic Volume MOD BP 90.7 cm??? 67 - 155 / 56 - 104 cm??? LV Systolic Volume MOD BP 32.2 cm??? 22 - 58 / 19 - 49 cm??? LV Ejection Fraction MOD BP 64.5 % >= 55 % LV Cardiac Index MOD BP 1533.9 cm???/min???m??? LV Diastolic Volume MOD 4C 98.5 cm??? LV Systolic Volume MOD 4C 38.2 cm??? LV Ejection Fraction MOD 4C 61.2 % LV Cardiac Index MOD 4C 1580.5 cm???/min???m??? LV Diastolic Length 4C 7.6 cm LV Systolic Length 4C 6.7 cm LV Diastolic Volume MOD 2C 82.2 cm??? LV Systolic Volume MOD 2C 25.5 cm??? LV Ejection Fraction MOD 2C 68.9 % LV Cardiac Index MOD 2C 1485.6 cm???/min???m??? LV Diastolic Length 2C 7.4 cm LV Systolic Length 2C 6.3 cm LA Volume 35.3 cm??? 18 - 58 / 22 - 52 cm??? LA Volume Index 20.1 cm???/m??? 16 - 28 cm???/m??? Ascending Aorta Diameter 2.9 cm DOPPLER AV Peak Velocity 150.6 cm/s AV Peak Gradient 9.1 mmHg AV Mean Velocity 83.9 cm/s AV Mean Gradient 3.5 mmHg AV Velocity Time Integral 27.8 cm LVOT Peak Velocity 99.8 cm/s LVOT Peak Gradient 4.0 mmHg LVOT Velocity Time Integral 19.5 cm LVOT Stroke Volume 67.6 cm??? LVOT Stroke Volume Index 38.8 ml/m??? LVOT Cardiac Index 1771.6 cm???/min???m??? AV Area Cont Eq vti 2.4 cm??? AV Area Cont Eq pk 2.3 cm??? MV Area PHT 3.2 cm??? Mitral E Point Velocity 68.4 cm/s Mitral A Point Velocity 51.2 cm/s Mitral E to A Ratio 1.3 MV Deceleration Time 235.6 ms PV Peak Velocity 72.5 cm/s PV Peak Gradient 2.1 mmHg FINDINGS Left Ventricle Left ventricular ejection fraction is estimated at 60-65 %. Left ventricular cavity size normal. Left ventricular wall thickness normal. No obvious regional wall motion abnormalities. Right Ventricle Right ventricle not well visualized. Unable to estimate the right ventricular systolic pressure. Right Atrium Right atrium not well visualized. Left Atrium Normal left atrial size. Mitral Valve Structurally normal mitral valve. No mitral stenosis, regurgitation or prolapse. Aortic Valve Aortic valve not well visualized. No aortic valve stenosis or regurgitation. Tricuspid Valve Structurally normal tricuspid valve. No tricuspid stenosis, regurgitation or prolapse. Pulmonic Valve Pulmonic valve not well visualized. No pulmonic stenosis. No pulmonic regurgitation. Pericardium No echocardiographic findings to suggest a hemodynamically significant pericardial effusion. Aorta Normal size aortic root and proximal ascending aorta. CONCLUSIONS Left ventricular ejection fraction is estimated at 60-65 %. No obvious regional wall motion abnormalities. No obvious valvular dysfunction Previewed by: Dr Parveen Soler (Electronically Signed) Final Date: 18 June 2024 17:49
[2024-06-19 04:45] LABS: Basophils % (A) 1 %; Eosinophils # (A) 0.1 k/uL (0-0.7); Eosinophils % (A) 2 %; HCT 36.8 % (34.0-46.0); HGB 12.2 gm/dL (11.4-16.0); Lymphocytes # (A) 3.4 k/uL (1.0-4.8); Lymphocytes % (A) 50 %; MCH 32.2 pg (25.0-35.0); MCHC 33.1 g/dL (31.0-37.0); MCV 97.2 fL (80.0-100.0); Mean Platelet Volume 7.9; Monocytes # (A) 0.5 k/uL (0-1.0); Monocytes % (A) 7 %; Neutrophils # (A) 2.5 k/uL (1.3-7.7); Neutrophils % (A) 38 %; Platelet Count 183 k/uL (150-450); RBC 3.79 m/uL (3.80-5.40); RDW 13.2 % (11.5-15.5); WBC 6.7 k/uL (3.8-10.6)
[2024-06-19 04:53] LABS: African American GFR (CKD) >90 (>60 ml/min/1.73 sqM); Anion Gap 2 mmol/L; Blood Urea Nitrogen 12 mg/dL (7-17); Calcium 8.6 mg/dL (8.4-10.2); Carbon Dioxide 23 mmol/L (22-30); Chloride 114 mmol/L (98-107); Glucose 163 mg/dL (74-99); Non-African American GFR(CKD) 88 (>60 ml/min/1.73 sqM); Potassium 3.6 mmol/L (3.5-5.1); Sodium 139 mmol/L (137-145)
--- NOTE | 2024-06-19 06:48 | PN ---
PROGRESS NOTE DATE OF SERVICE: 06/18/2024 SUBJECTIVE: This is a 73-year-old woman, who was admitted with chest pain, also had abdominal symptoms. The patient is also complaining of nausea. The abdomen and pelvis CT scan showed no acute abnormality. Surgery is following the patient closely. The patient also had constipation also. Colonoscopy planned by Dr. Veras. OBJECTIVE: VITAL SIGNS: Pulse is 61, blood pressure 90/53, respirations 15. HEENT: Conjunctivae normal. CARDIOVASCULAR: S1, S2. RESPIRATIONS: Breath sounds diminished at the bases. ABDOMEN: Soft. NERVOUS SYSTEM: Nonfocal. LABORATORY DATA: Potassium 3.3. Cholesterol noted. ASSESSMENT: 1. Chest pain for evaluation, rule out unstable angina. 2. Epigastric pain, nausea, possible acute gastritis. 3. Constipation. 4. History of asthma. 5. History of anxiety. 6. History of fibromyalgia. 7. Hyperlipidemia. 8. Multiple complex medical issues. RECOMMENDATIONS: Recommend to continue current medications and continue symptomatic treatment. Otherwise, closely follow with Cardiology and Surgery. I would also recommend possible EGD to add to the current plan. Further recommendations to follow. MMODL / IJN: [id number] /
[2024-06-19] MEDS ORDERED: PROPOFOL 10 MG/ML 20 ML VIAL IV ONE (10:35)
--- NOTE | 2024-06-19 10:57 | P.PN ---
Subjective HISTORY OF PRESENT ILLNESS: This is a 73-year-old female with a past medical history significant for multiple sclerosis, anxiety, depression, and former nicotine dependence. Patient does not follow with a assayer helper, she used to follow with Dr. Chang and was last seen in 2019. We have been asked to see the patient in consultation for chest pain. Patient examined at the bedside. Patient presented to the hospital with a multitude of symptoms. Patient states that she was living with a family member in [place] and came back to [place] in April. She states that she feels like she is "falling apart". She states that she is mentally and physically worn out. Patient is very tearful and crying at the time of examination. She reports she was on Ativan and her physician stopped it "cold turkey". She states that she is feeling very anxious. She states that she is having racing thoughts. She states that she has not been able to sleep. She also reports that she is not eating. She complains of abdominal pain this morning and states that she has not had a bowel movement in 2 weeks. He reports having palpitations and chest pain yesterday but she states she is unsure if this is related to her anxiety. She also reports that she has a UTI that she has had since April. DIAGNOSTICS: - EKG reveals sinus mechanism with no signs of acute ischemia - Chest xray negative for acute process - Laboratory data: WBC 8.33. Hemoglobin 12.4. Platelet count 185. D-dimer 0.44. Sodium 142. Potassium 3.7. BUN 18. Creatinine 0.8. Troponin negative x 3. LDL 142. - Current home cardiac medications include metoprolol succinate 12.5 mg daily - No previous echocardiogram, stress test, or cardiac catheterization available for review. However patient used to follow in the office in 2019 and documentation from cardiology office states that patient had a heart cath in 2017 without evidence of obstructive CAD. 06/18/2024 Patient examined this morning at the bedside. Patient states she is feeling better today and has less anxiety. She denies any shortness of breath or cough. She denies any chest pain. She does report having a warm feeling in her chest this morning. Vital signs are stable. Patient has been evaluated by general surgery and is scheduled for colonoscopy tomorrow. 06/19/2024 Patient examined this morning the bedside. Patient currently denies any chest pain or pressure. She denies any shortness of breath. She is scheduled to undergo colonoscopy today with general surgery. Echocardiogram completed revealing ejection fraction 60 to 65% with no obvious regional wall motion abnormalities and no obvious valvular dysfunction. PHYSICAL EXAM: VITAL SIGNS: Reviewed. GENERAL: Well-developed in no acute distress. HEENT: Head is normocephalic. Pupils are equal, round. Sclerae anicteric. Mucous membranes of the mouth are moist. Neck supple. No JVD or thyromegaly LUNGS: Respirations even and unlabored. Lungs essentially clear to auscultation bilaterally. HEART: Regular rate and rhythm. S1 and S2 heard. ABDOMEN: Soft. Nondistended. Nontender. EXTREMITIES: Normal range of motion. No clubbing or cyanosis. Peripheral pulses intact. No lower extremity edema NEUROLOGIC: Awake and alert. ASSESSMENT: Atypical chest pain, troponin negative x 3 History of cardiac catheterization in 2016 without obstructive CAD, per cardiology office records Hyperlipidemia, LDL 142 Anxiety Constipation, patient reports no bowel movement for 2 weeks Reported decreased oral intake Reported insomnia Reported UTI since April per patient, no UA available History of multiple sclerosis, diagnosed in September, per patient Depression Former nicotine dependence PLAN: An acute coronary event has been ruled out Continue aspirin and atorvastatin Will plan for outpatient stress testing General Surgery following. Patient to undergo colonoscopy today We will sign off. Please reconsult if needed. Nurse practitioner note has been reviewed by physician. Signing provider agrees with the documented findings, assessment, and plan of care documented by ELECTRONICS ASSEMBLER as a scribe Objective - Vital Signs Vital signs: Vital Signs Temp 98.2 F 06/19/24 08:30 Pulse 90 06/19/24 10:29 Resp 13 06/19/24 10:29 BP 108/54 06/19/24 08:30 Pulse Ox 98 06/19/24 03:14 FiO2 Intake & Output 06/18/24 06/19/24 06/19/24 18:59 06:59 18:59 Intake Total 286 Balance 286 Intake: Oral 286 Other: Voiding Method Toilet Toilet Diaper # Voids 1 2 1 # Bowel Movements 1 1 0 - Labs CBC & Chem 7: 06/19/24 04:19 06/19/24 04:19 Labs: Abnormal Lab Results - Last 24 Hours (Table) 06/19/24 06/19/24 Range/Units 04:19 04:19 RBC 3.79 L (3.80-5.40) m/uL Chloride 114 H (98-107) mmol/L Glucose 163 H (74-99) mg/dL
--- NOTE | 2024-06-19 11:07 | P.OP ---
Date of Procedure: 06/19/24 Preoperative Diagnosis: Constipation Gerd Postoperative Diagnosis: Antral gastritis Normal colon Procedure(s) Performed: EGD Colonoscopy Anesthesia: MAC Surgeon: Chema Veras Pathology: other (Antrum) Condition: stable Disposition: PACU Description of Procedure: The patient was placed on the endoscopy table in the lateral position. She received IV sedation. The gas was placed oropharynx passed in the esophagus and the stomach. Scope was in place through the pylorus. The first and second port ion of the duodenum appeared normal. Scope was then brought back to the antrum this appeared mildly inflamed. A biopsy was performed. The scope was then retroflexed and the Mainer of the stomach appeared normal. The GE junction was at 40 cm. The distal esophagus appeared normal. The proximal esophagus were normal. Scope was withdrawn from patient.
[2024-06-20] MEDS: IBUPROFEN 200 MG TAB PO PRN (02:04)
--- NOTE | 2024-06-20 03:01 | PN ---
PROGRESS NOTE DATE OF SERVICE: 06/19/2024 SUBJECTIVE: This is a 73-year-old woman, who was admitted with chest pain and epigastric pain, is being closely monitored. The patient underwent EGD and colonoscopy today, which showed only antral gastritis. The patient complained of nausea. No chest pain. No palpitations. No fever. OBJECTIVE: VITAL SIGNS: Pulse is 49, blood pressure 120/64, respirations 13. CHEST: Clear to auscultation. CARDIOVASCULAR: S1, S2. ABDOMEN: Soft. NERVOUS SYSTEM: Nonfocal. LABORATORY DATA: Hemoglobin 12.2. Rest of the labs are noted. Cholesterol is 220. ASSESSMENT: 1. Chest pain for evaluation, rule out unstable angina. 2. Epigastric pain, nausea, possible acute gastritis. 3. Constipation. 4. Hyperlipidemia. 5. History of asthma. 6. Anxiety. 7. Fibromyalgia. 8. Multiple complex medical issues. RECOMMENDATIONS: Recommend to continue current medications, and continue symptomatic treatment. Advance diet. Closely follow with multiple consultants. Recommend repeat labs and continue to monitor. Further recommendations to follow. MMODL / IJN: [id number] /
[2024-06-20 08:56] LABS: Basophils # (A) 0.03 X 10*3/uL (0.00-0.10); Basophils % (A) 0.4 %; Eosinophils # (A) 0.14 X 10*3/uL (0.04-0.35); Eosinophils % (A) 1.9 %; HCT 34.4 % (37.2-46.3); HGB 11.3 g/dL (12.0-15.0); Lymphocytes # (A) 3.63 X 10*3/uL (0.90-5.00); Lymphocytes % (A) 50.1 %; MCH 32.6 pg (27.0-32.0); MCHC 32.8 g/dL (32.0-37.0); MCV 99.1 FL (80.0-97.0); Mean Platelet Volume 11.3 FL (9.5-12.2); Monocytes # (A) 0.57 X 10*3/uL (0.20-1.00); Monocytes % (A) 7.9 %; NRBC Per 100 WBC 0 X 10*3/uL (0.00-0.01); Neutrophils # (A) 2.85 X 10*3/uL (1.80-7.70); Neutrophils % (A) 39.4 %; Platelet Count 182 X 10*3/uL (140-440); RBC 3.47 X 10*6/uL (4.10-5.20); RDW 14.1 % (11.5-14.5); WBC 7.24 X 10*3/uL (4.50-10.00)
[2024-06-20 10:04] LABS: Blood Urea Nitrogen 14.6 mg/dL (9.0-27.0); Calcium 8.7 mg/dL (8.7-10.3); Carbon Dioxide 20.7 mmol/L (21.6-31.8); Chloride 109 mmol/L (96-109); Glucose 137 mg/dL (70-110); Potassium 3.8 mmol/L (3.5-5.5); Sodium 142 mmol/L (135-145)
--- NOTE | 2024-06-20 14:28 | P.PN ---
Subjective Progress Note Date: 06/20/24 SURGICAL PROGRESS NOTE CHIEF COMPLAINT: Constipation HISTORY OF PRESENT ILLNESS: Patient status post EGD and colonoscopy. EGD revealed antral gastritis. Colonoscopy was normal. Patient has no new compl aints. Patient Toller regular diet. WBC 7.24 Hgb 11.3 Patient seen and examined with Dr. Veras PHYSICAL EXAM: VITAL SIGNS: Reviewed. GENERAL: Well-developed in no acute distress. ABDOMEN: Soft. Nondistended. Nontender. NEUROLOGIC: Alert and oriented. Cranial nerves II through XII grossly intact. ASSESSMENT: 1. Constipation 2. Antral gastritis on EGD 3. History of MS 4. Chest pain evaluated by cardiology service PLAN: -Recommend patient remains on a good bowel regimen at home -Continue Protonix for gastritis -Patient can be discharged from surgical standpoint when medically cleared Physician Language Instructor note has been reviewed by physician. Signing provider agrees with the documented findings, assessment, and plan of care. Objective - Vital Signs Vital signs: Vital Signs Temp 98.8 F 06/20/24 13:56 Pulse 64 06/20/24 13:56 Resp 15 06/20/24 13:56 BP 118/71 06/20/24 13:56 Pulse Ox 97 06/20/24 13:56 FiO2 Intake & Output 06/19/24 06/20/24 06/20/24 18:59 06:59 18:59 Intake Total 360 222 Balance 360 222 Intake: Oral 360 222 Other: Voiding Method Toilet Toilet Toilet # Voids 1 2 1 # Bowel Movements 0 0 - Labs CBC & Chem 7: 06/20/24 02:48 06/20/24 02:48 Labs: Abnormal Lab Results - Last 24 Hours (Table) 06/20/24 06/20/24 Range/Units 02:48 02:48 RBC 3.47 L (4.10-5.20) X 10*6/uL Hgb 11.3 L (12.0-15.0) g/dL Hct 34.4 L (37.2-46.3) % MCV 99.1 H (80.0-97.0) FL MCH 32.6 H (27.0-32.0) pg Carbon Dioxide 20.7 L (21.6-31.8) mmol/L Anion Gap 12.30 H (4.00-12.00) mmol/L Glucose 137 H (70-110) mg/dL
[2024-06-21 01:57] VITALS: RESP 16
--- NOTE | 2024-06-21 09:34 | P.PN ---
Subjective Progress Note Date: 06/21/24 Principal diagnosis: Abdominal pain Patient doing better today. No pain today. Some nausea. Tolerating diet. Patient describes significant anxiety. Waiting for psychiatric evaluation. Objective - Vital Signs Vital signs: Vital Signs Temp 97.6 F 06/21/24 06:54 Pulse 62 06/21/24 06:54 Resp 16 06/21/24 06:54 BP 110/68 06/21/24 06:54 Pulse Ox 93 L 06/21/24 08:22 FiO2 Intake & Output 06/20/24 06/21/24 06/21/24 18:59 06:59 18:59 Intake Total 222 222 Balance 222 222 Intake: Oral 222 222 Other: Voiding Method Toilet # Voids 1 2 # Bowel Movements 0 - Exam Abdomen: Soft, nontender, nondistended - Labs CBC & Chem 7: 06/20/24 02:48 06/20/24 02:48 Labs: Abnormal Lab Results - Last 24 Hours (Table) 06/20/24 Range/Units 02:48 Carbon Dioxide 20.7 L (21.6-31.8) mmol/L Anion Gap 12.30 H (4.00-12.00) mmol/L Glucose 137 H (70-110) mg/dL Assessment and Plan (1) Vomiting Narrative/Plan: 73-year-old female with abdominal pain and nausea. Most of those symptoms have improved. Patient still with significant anxiety. Awaiting psychiatric evaluation. No surgical plans. Current Visit: Yes Status: Acute Code(s): R11.10 - VOMITING, UNSPECIFIED SNOMED Code(s): 327593890
--- NOTE | 2024-06-21 15:15 | P.PN ---
Subjective Progress Note Date: 06/20/24 73-year-old female with a past medical history significant for multiple sclerosis, anxiety, depression, and former nicotine dependence admitted to the hospital with complaint of chest and abdominal pain. Patient presented to the hospital with a multitude of symptoms. Patient states that she was living with a family member in [place] and came back to [place] in April. She states that she feels like she is "falling apart". She states that she is mentally and physically worn out. Patient is very tearful and crying at the time of examination. She reports she was on Ativan and her physician stopped it "cold turkey". She states that she is feeling very anxious. She states that she is having racing thoughts. She states that she has not been able to sleep. She also reports that she is not eating. She complains of abdominal pain this morning and states that she has not had a bowel movement in 2 weeks. He reports having palpitations and chest pain yesterday but she states she is unsure if this is related to her anxiety. She also reports that she has a UTI that she has had since April. DIAGNOSTICS: - EKG reveals sinus mechanism with no signs of acute ischemia - Chest xray negative for acute process - Laboratory data: WBC 8.33. Hemoglobin 12.4. Platelet count 185. D-dimer 0. 44. Sodium 142. Potassium 3.7. BUN 18. Creatinine 0.8. Troponin negative x 3. LDL 142. Patient has been reporting excessive anxiety and wants to be discharged home on Ativan; reports she has an appointment with psych in June --We will consult psych for further recommendations Objective - Vital Signs Vital signs: Vital Signs Temp 98.2 F 06/20/24 07:13 Pulse 71 06/20/24 08:58 Resp 16 06/20/24 08:58 BP 95/59 06/20/24 07:13 Pulse Ox 92 L 06/20/24 07:13 FiO2 Intake & Output 06/19/24 06/20/24 06/20/24 18:59 06:59 18:59 Intake Total 360 Balance 360 Intake: Oral 360 Other: Voiding Method Toilet Toilet Toilet # Voids 1 2 0 # Bowel Movements 0 0 - Exam GENERAL: Well-developed in no acute distress. HEENT: Head is normocephalic. Pupils are equal, round. Sclerae anicteric. Mucous membranes of the mouth are moist. Neck supple. No JVD or thyromegaly LUNGS: Respirations even and unlabored. Lungs essentially clear to auscultation bilaterally. HEART: Regular rate and rhythm. S1 and S2 heard. ABDOMEN: Soft. Nondistended. Nontender. EXTREMITIES: Normal range of motion. No clubbing or cyanosis. Peripheral pulse s intact. No lower extremity edema NEUROLOGIC: Awake and alert. - Labs CBC & Chem 7: 06/20/24 02:48 06/20/24 02:48 Labs: Abnormal Lab Results - Last 24 Hours (Table) 06/20/24 06/20/24 Range/Units 02:48 02:48 RBC 3.47 L (4.10-5.20) X 10*6/uL Hgb 11.3 L (12.0-15.0) g/dL Hct 34.4 L (37.2-46.3) % MCV 99.1 H (80.0-97.0) FL MCH 32.6 H (27.0-32.0) pg Carbon Dioxide 20.7 L (21.6-31.8) mmol/L Anion Gap 12.30 H (4.00-12.00) mmol/L Glucose 137 H (70-110) mg/dL Assessment and Plan Assessment: Atypical chest pain, troponin negative x 3 History of cardiac catheterization in 2016 without obstructive CAD, per cardiology office records Hyperlipidemia, LDL 142 Anxiety Constipation, patient reports no bowel movement for 2 weeks Reported decreased oral intake Reported insomnia Reported UTI since April per patient, no UA available History of multiple sclerosis, diagnosed in September, per patient Depression Former nicotine dependence PLAN: An acute coronary event has been ruled out Obtain 2D echo to assess cardiac structure and function Add aspirin 81 mg and Lipitor 40 mg at night No plans for stress testing or cardiac catheterization at this time -- Patient evaluated by general surgery and underwent EGD for epigastric pain wh ich revealed mild gastritis; patient remains on PPI
--- NOTE | 2024-06-21 15:20 | P.PN ---
Subjective Progress Note Date: 06/21/24 73-year-old female with a past medical history significant for multiple sclerosis, anxiety, depression, and former nicotine dependence admitted to the hospital with complaint of chest and abdominal pain. Patient presented to the hospital with a multitude of symptoms. Patient states that she was living with a family member in [place] and came back to [place] in April. She states that she feels like she is "falling apart". She states that she is mentally and physically worn out. Patient is very tearful and crying at the time of examination. She reports she was on Ativan and her physician stopped it "cold turkey". She states that she is feeling very anxious. She states that she is having racing thoughts. She states that she has not been able to sleep. She also reports that she is not eating. She complains of abdominal pain this morning and states that she has not had a bowel movement in 2 weeks. He reports having palpitations and chest pain yesterday but she states she is unsure if this is related to her anxiety. She also reports that she has a UTI that she has had since April. DIAGNOSTICS: - EKG reveals sinus mechanism with no signs of acute ischemia - Chest xray negative for acute process - Laboratory data: WBC 8.33. Hemoglobin 12.4. Platelet count 185. D-dimer 0. 44. Sodium 142. Potassium 3.7. BUN 18. Creatinine 0.8. Troponin negative x 3. LDL 142. 06/21/2024 Patient has been reporting excessive anxiety and wants to be discharged home on Ativan; reports she has an appointment with psych in June --We will consult psych for further recommendations Vital signs are reviewed and remained stable Labs are reviewed Patient is stable for discharge once evaluated by psych Objective - Vital Signs Vital signs: Vital Signs Temp 97.6 F 06/21/24 06:54 Pulse 62 06/21/24 06:54 Resp 16 06/21/24 06:54 BP 110/68 06/21/24 06:54 Pulse Ox 93 L 06/21/24 08:22 FiO2 Intake & Output 06/20/24 06/21/24 06/21/24 18:59 06:59 18:59 Intake Total 222 222 Balance 222 222 Intake: Oral 222 222 Other: Voiding Method Toilet # Voids 1 2 # Bowel Movements 0 - Exam GENERAL: Well-developed in no acute distress. HEENT: Head is normocephalic. Pupils are equal, round. Sclerae anicteric. Mucous membranes of the mouth are moist. Neck supple. No JVD or thyromegaly LUNGS: Respirations even and unlabored. Lungs essentially clear to auscultation bilaterally. HEART: Regular rate and rhythm. S1 and S2 heard. ABDOMEN: Soft. Nondistended. Nontender. EXTREMITIES: Normal range of motion. No clubbing or cyanosis. Peripheral pulses intact. No lower extremity edema NEUROLOGIC: Awake and alert. - Labs CBC & Chem 7: 06/20/24 02:48 06/20/24 02:48 Assessment and Plan Assessment: Atypical chest pain, troponin negative x 3 History of cardiac catheterization in 2016 without obstructive CAD, per c ardiology office records Hyperlipidemia, LDL 142 Anxiety Constipation, patient reports no bowel movement for 2 weeks Reported decreased oral intake Reported insomnia Reported UTI since April per patient, no UA available History of multiple sclerosis, diagnosed in September, per patient Depression Former nicotine dependence PLAN: An acute coronary event has been ruled out Obtain 2D echo to assess cardiac structure and function Add aspirin 81 mg and Lipitor 40 mg at night No plans for stress testing or cardiac catheterization at this time -- Patient evaluated by general surgery and underwent EGD for epigastric pain which revealed mild gastritis; patient remains on PPI
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
[2024-06-22 07:20] VITALS: BP 106/67; PULSE 54; TEMP 97.4
[2024-06-22] MEDS: ESCITALOPRAM 5 MG TAB PO SCH (09:19)
--- NOTE | 2024-06-22 10:09 | P.PN ---
Subjective Progress Note Date: 06/22/24 Principal diagnosis: Abdominal pain Patient doing better today. Denies any significant abdominal pain. She was seen by psychiatry. Her meds were adjusted. Objective - Vital Signs Vital signs: Vital Signs Temp 97.4 F L 06/22/24 06:57 Pulse 54 L 06/22/24 06:57 Resp 16 06/22/24 06:57 BP 106/67 06/22/24 06:57 Pulse Ox 96 06/22/24 06:57 FiO2 Intake & Output 06/21/24 06/22/24 06/22/24 18:59 06:59 18:59 Intake Total 462 597 Balance 462 597 Intake: Oral 462 597 Other: # Voids 3 2 # Bowel Movements 1 - Exam Abdomen: Soft, nontender, nondistended - Labs CBC & Chem 7: 06/20/24 02:48 06/20/24 02:48 Assessment and Plan (1) Vomiting Narrative/Plan: Patient seems to be doing better. Continue regular diet. Continue anxiety medications per psychiatry. Stable for discharge from our point of view. Current Visit: Yes Status: Acute Code(s): R11.10 - VOMITING, UNSPECIFIED SNOMED Code(s): 213035325
== END 2024-06-22 12:20 | disposition home or self-care (01) ==
LOC: EC 13:37 → 6NMEDSUR 15:42
PROVIDERS: ADMIT Internal Medicine; ATTEND Internal Medicine
DX: K29.70 Gastritis, unspecified, without bleeding (principal); R07.89 Other chest pain; K59.00 Constipation, unspecified; R11.10 Vomiting, unspecified; K21.9 Gastro-esophageal reflux disease without esophagitis; F32.A Depression, unspecified; F41.9 Anxiety disorder, unspecified; E78.5 Hyperlipidemia, unspecified; G35 Multiple sclerosis; G47.00 Insomnia, unspecified; J45.909 Unspecified asthma, uncomplicated; M79.7 Fibromyalgia; Z87.440 Personal history of urinary (tract) infections; Z87.891 Personal history of nicotine dependence; Z79.899 Other long term (current) drug therapy; Z88.5 Allergy status to narcotic agent; Z88.1 Allergy status to other antibiotic agents; Z88.0 Allergy status to penicillin
CPT/HCPCS: 96376 ×6; 96374 ×2; 96375; 99285; 36415; 94760 ×3; 93005; 93306; 85379; 88305; 80061; 80053 ×3; 80048 ×2; 85652; 82150; 83690; 83735; 84484; 85025 ×5; 85610; 85730; 86140; 71046; 74018; 74176; 45378; 43239; G0378 ×7; J2405 ×5; J3490; J2470 ×7

== ENCOUNTER 2024-07-04 12:02 | Inpatient (IN) | payer MEDICARE, OTHER ==
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
[2024-07-04] MEDS: ONDANSETRON 4 MG/2 ML VIAL IVP STA (12:54)
[2024-07-04] MEDS: methylPREDNISolone SOD SUCCI 125 MG/2 ML VIAL IV STA (12:54)
[2024-07-04] MEDS: diphenhydrAMINE 50 MG/ML 1 ML VIAL IVP STA (12:54)
[2024-07-04 12:55] LABS: Basophils % (A) 0 %; Eosinophils # (A) 0.1 k/uL (0-0.7); Eosinophils % (A) 1 %; HCT 39.3 % (34.0-46.0); HGB 13.1 gm/dL (11.4-16.0); Lymphocytes # (A) 2.6 k/uL (1.0-4.8); Lymphocytes % (A) 31 %; MCH 32.3 pg (25.0-35.0); MCHC 33.5 g/dL (31.0-37.0); MCV 96.5 fL (80.0-100.0); Mean Platelet Volume 7.8; Monocytes # (A) 0.4 k/uL (0-1.0); Monocytes % (A) 5 %; Neutrophils % (A) 61 %; Platelet Count 231 k/uL (150-450); RBC 4.07 m/uL (3.80-5.40); RDW 13.5 % (11.5-15.5); WBC 8.2 k/uL (3.8-10.6)
[2024-07-04] MEDS: FAMOTIDINE 20 MG/2 ML VIAL IV STA (12:55)
[2024-07-04] MEDS: SODIUM CHLORIDE 0.9% 1,000 ML IV STA ×2 (12:55→14:25)
[2024-07-04 12:57] LABS: Partial Thromboplastin Time 22.1 sec (22.0-30.0)
[2024-07-04 13:00] LABS: ALT 15 U/L (4-34); AST 24 U/L (14-36); African American GFR (CKD) 86 (>60 ml/min/1.73 sqM); Albumin 4.2 g/dL (3.5-5.0); Alkaline Phosphatase 85 U/L (38-126); Amylase 40 U/L (30-110); Anion Gap 9 mmol/L; Blood Urea Nitrogen 11 mg/dL (7-17); Calcium 9.2 mg/dL (8.4-10.2); Carbon Dioxide 23 mmol/L (22-30); Chloride 109 mmol/L (98-107); Glucose 111 mg/dL (74-99); Lipase 52 U/L (23-300); Non-African American GFR(CKD) 75 (>60 ml/min/1.73 sqM); Sodium 141 mmol/L (137-145)
--- NOTE | 2024-07-04 13:55 | CT ---
EXAMINATION TYPE: CT abdomen pelvis w con CT DLP: 1072 mGycm, Automated exposure control for dose reduction was used. DATE OF EXAM: 07/04/2024 1:45 PM COMPARISON: CT abdomen pelvis 06/17/2024, 05/22/2018 CLINICAL INDICATION:Female, 73 years old with history of abdominal pain; Right side chest pain and ab dominal pain. TECHNIQUE: Standard CT of the abdomen and pelvis following the administration of 100 cc of Isovue 3 00 IV contrast material. Coronal and sagittal reformats were performed. FINDINGS: LOWER CHEST: Minimal posterior dependent subsegmental atelectasis is noted. ABDOMEN LIVER: Focal fatty infiltration adjacent to the falciform ligament in segment IVb redemonstrated. GALLBLADDER AND BILE DUCTS: The gallbladder is surgically absent. No biliary ductal dilatation. PANCREAS: Unremarkable. SPLEEN: Unremarkable. Couple of adjacent splenules. ADRENAL GLANDS: Unremarkable. KIDNEYS AND URETERS: No evidence of hydronephrosis or renal calculus. The kidneys enhance symmetrical ly. Contrast is demonstrated within both collecting systems on the delayed phase. PELVIS BLADDER: Incompletely distended but grossly unremarkable. REPRODUCTIVE: The uterus is surgically absent. ABDOMEN & PELVIS STOMACH AND BOWEL: Stomach and duodenum are unremarkable. No focal bowel wall thickening or surroundi ng inflammatory changes. The appendix is not definitively identified however there is no significant inflammatory changes within the right lower quadrant and pelvis. No evidence of bowel obstruction. PERITONEUM: No evidence of pneumoperitoneum or free fluid. VASCULATURE: Mild atherosclerotic calcifications are present throughout the abdominal aorta and its b ranches. No evidence of aortic aneurysm. MUSCULOSKELETAL: No acute osseous abnormalities. Redemonstration of multilevel lumbar spine compressi on deformities. No retropulsion. LYMPH NODES: No evidence for lymphadenopathy. SOFT TISSUE/ABDOMINAL WALL: Unremarkable IMPRESSION: No acute abdominal/pelvic process. [facility], , 07/04/2024 1:53 PM
--- NOTE | 2024-07-04 14:00 | CT ---
EXAMINATION TYPE: CT angio chest CT DLP: 1072 mGycm, Automated exposure control for dose reduction was used. DATE OF EXAM: 07/04/2024 1:48 PM COMPARISON: CT low-dose lung 11/14/2016 CLINICAL INDICATION:Female, 73 years old with history of R cp and dyspnea; Right side chest pain and abdominal pain. TECHNIQUE/CONTRAST: CTA scan of the thorax is performed with IV Contrast, patient injected with 100 mL of Isovue 370, pul monary embolism protocol. MIP images are created and reviewed. FINDINGS: Pulmonary Artery: There is no evidence for a filling defect within the pulmonary vasculature to sugge st acute pulmonary embolism. The pulmonary artery is of normal size. Reflux of contrast into the IV C. Lungs/Pleura: No evidence of focal consolidation, pleural effusion or pneumothorax. Minimal bilateral lower lobe dependent subsegmental atelectasis. Additional minimal linear atelectasis within the left lower lobe and lingula. Minimal linear scarring or atelectasis within the right middle lobe medially . Calcified granulomas within the right apex. Airway: Large airways are patent. Heart: Heart is within normal limits for size.. No pericardial effusion. Vasculature: No evidence of aortic aneurysm. Mediastinum: No evidence of adenopathy. Musculoskeletal: No acute osseous abnormalities Soft Tissues: Unremarkable. Lower neck: No significant findings. Upper Abdomen: Please refer to dedicated CT abdomen and pelvis of the same day for findings. IMPRESSION: 1. No evidence of pulmonary embolism. 2. Minimal scattered regions of atelectasis and/or linear scarring. [facility], , 07/04/2024 1:57 PM
[2024-07-04] MEDS ORDERED: NALOXONE 0.4 MG/ML 1 ML VIAL IV PRN (14:32)
[2024-07-04] MEDS: LORazepam 1 MG TAB PO STA (14:34)
[2024-07-04] MEDS: PANTOPRAZOLE 40 MG/10 ML VIAL IV SCH (14:56)
[2024-07-04] MEDS: SODIUM CHLORIDE 0.9% 1,000 ML IV SCH (14:57)
[2024-07-04] MEDS: PANTOPRAZOLE 40 MG/10 ML VIAL IVP SCH (19:50)
[2024-07-04] MEDS: MIRTAZAPINE 15 MG TAB PO SCH (19:50)
[2024-07-04] MEDS: QUEtiapine 25 MG TAB PO SCH (19:50)
[2024-07-04] MEDS: ACETAMINOPHEN TAB 325 MG TAB PO PRN (19:51)
[2024-07-04] MEDS: ATORVASTATIN 40 MG TAB PO SCH (19:51)
[2024-07-04] MEDS: LORazepam 1 MG TAB PO SCH (20:20)
[2024-07-05] MEDS: ASPIRIN 81 MG PO SCH (08:11)
[2024-07-05] MEDS ORDERED: METOPROLOL SUCCINATE (ER) 25 MG TAB.ER.24H PO SCH (09:00)
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
[2024-07-05 10:00] LABS: HGB 11.7 g/dL (12.0-15.0); MCH 32.7 pg (27.0-32.0); MCHC 34.4 g/dL (32.0-37.0); Mean Platelet Volume 11.1 FL (9.5-12.2); NRBC Per 100 WBC 0 X 10*3/uL (0.00-0.01); Platelet Count 199 X 10*3/uL (140-440); RBC 3.58 X 10*6/uL (4.10-5.20); RDW 13.7 % (11.5-14.5); WBC 7.94 X 10*3/uL (4.50-10.00)
[2024-07-05 10:01] LABS: Basophils # (A) 0.01 X 10*3/uL (0.00-0.10); Basophils % (A) 0.1 %; Eosinophils # (A) 0 X 10*3/uL (0.04-0.35); Eosinophils % (A) 0 %; Lymphocytes % (A) 20.2 %; Monocytes # (A) 0.47 X 10*3/uL (0.20-1.00); Monocytes % (A) 5.9 %; Neutrophils # (A) 5.83 X 10*3/uL (1.80-7.70); Neutrophils % (A) 73.4 %
[2024-07-05 10:26] LABS: ALT 12 U/L (8-44); AST 15 U/L (13-35); Albumin 3.7 g/dL (3.8-4.9); Albumin/Globulin Ratio 1.68 Ratio (1.60-3.17); Alkaline Phosphatase 76 U/L (41-126); BUN/Creat Ratio 11.57 Ratio (12.00-20.00); Blood Urea Nitrogen 8.1 mg/dL (9.0-27.0); Calcium 8.8 mg/dL (8.7-10.3); Chloride 110 mmol/L (96-109); Globulin 2.2 g/dL (1.6-3.3); Glucose 122 mg/dL (70-110); Potassium 3.5 mmol/L (3.5-5.5); Sodium 141 mmol/L (135-145); Total Bilirubin 0.4 mg/dL (0.3-1.2); Total Protein 5.9 g/dL (6.2-8.2)
[2024-07-05] MEDS: ONDANSETRON 4 MG/2 ML VIAL IVP PRN (12:19)
[2024-07-06 08:14] LABS: African American GFR (CKD) 86 (>60 ml/min/1.73 sqM); Anion Gap 5 mmol/L; Blood Urea Nitrogen 8 mg/dL (7-17); Calcium 8.2 mg/dL (8.4-10.2); Carbon Dioxide 20 mmol/L (22-30); Chloride 116 mmol/L (98-107); Glucose 85 mg/dL (74-99); Non-African American GFR(CKD) 75 (>60 ml/min/1.73 sqM); Potassium 3.2 mmol/L (3.5-5.1); Sodium 141 mmol/L (137-145)
--- NOTE | 2024-07-06 11:10 | P.PN ---
Subjective HISTORY OF PRESENT ILLNESS: This is a 73-year-old female with a past medical history significant for multiple sclerosis, anxiety, depression, and former nicotine dependence. Patient does not follow with a order entry representative. She previously followed with Dr. Lorna Lopez and was last seen in the office in July 2018. We have been asked to see the patient in consultation for chest pain. Patient examined at the bedside. Patient was recently admitted to the hospital in May 2024. At that time the patient had had multiple complaints due to her physician apparently cutting her off of Ativan cold turkey. Patient was having anxiety, racing thoughts, insomnia, abdominal pain with no bowel movement for 2 weeks, and chest discomfort. Patient underwent an echocardiogram revealing normal LV systolic function with no valvular abnormalities and no regional wall motion abnormalities. She did undergo EGD and colonoscopy with general surgery revealing antral gastritis and normal colon. The patient presented back to the hospital with a chief complaint of abdominal pain. Patient reports having nausea and a few episodes of vomiting. Her pain appears to be in the epigastric region. She denies having chest pain at the time of examination. The patient was noted to be mildly bradycardic with heart rate in the 50s. She is on metoprolol succinate 12.5 mg on an outpatient basis. DIAGNOSTICS: - EKG reveals sinus bradycardia with no signs of acute ischemia - Chest CTA: Negative for pulmonary embolism - CT abdomen pelvis: Negative for acute process - Laboratory data: WBC 8.2. Hemoglobin 13.1. Platelet count 231. Sodium 141. Potassium 4.0. BUN 11. Creatinine 0.80. Troponin negative x 3. - Current home cardiac medications include Lipitor 40 mg at night, aspirin 81 mg daily, metoprolol succinate 12.5 mg daily - Most recent echocardiogram obtained in May 2024 revealed ejection fraction 60 to 65% with no obvious regional wall motion abnormalities or valvular dysfunction - Cardiac catheterization history: No previous cardiac catheterization records available for review. However patient used to follow in the office in 2019 and documentation from cardiology office states that patient had a heart cath in 2017 without evidence of obstructive CAD. 07/06/2024 Patient examined this morning the bedside. Patient states that she feels "awful" this morning. She currently denies chest pain or pressure. She denies shortness of breath. Patient's blood pressure is elevated this morning with a reading of 174/75. However previous readings are 122/74 and 136/70. Telemetry this morning reveals sinus mechanism with a heart in the 60s and 70s. Patient apparently overnight did dip into the 30s briefly. PHYSICAL EXAM: VITAL SIGNS: Reviewed. GENERAL: Well-developed in no acute distress. HEENT: Head is normocephalic. Pupils are equal, round. Sclerae anicteric. Mucous membranes of the mouth are moist. Neck supple. No JVD or thyromegaly LUNGS: Respirations even and unlabored. Lungs essentially clear to auscultation bilaterally. HEART: Regular rate and rhythm. S1 and S2 heard. ABDOMEN: Soft. Nondistended. Nontender. EXTREMITIES: Normal range of motion. No clubbing or cyanosis. Peripheral pulses intact. No lower extremity edema NEUROLOGIC: Awake and alert. Oriented x 3. ASSESSMENT: Atypical chest pain, troponin negative x 3, appears GI in etiology Asymptomatic sinus bradycardia Epigastric pain Abdominal pain Status post EGD and colonoscopy revealing antral gastritis and normal colon, May 2024 History of cardiac catheterization in 2016 without obstructive CAD, per cardiology office records Hyperlipidemia, recent LDL 142 History of multiple sclerosis, diagnosed in September, per patient Depression Anxiety Former nicotine dependence PLAN: An acute coronary event has been ruled out No need to repeat echocardiogram as this was performed in May 2024 Continue current cardiac medications Metoprolol discontinued on admission secondary to bradycardia Patient's symptoms appear to be GI in etiology as she is complaining of abdominal pain and had nausea and vomiting at home Patient is stable for discharge home today from a cardiac standpoint Patient to follow-up in the office with Dr. Soler as he saw her during recent hospitalization for an outpatient stress test Nurse practitioner note has been reviewed by physician. Signing provider agrees with the documented findings, assessment, and plan of care documented by PROSTHETIC AIDE as a scribe. Objective - Vital Signs Vital signs: Vital Signs Temp 98.1 F 07/06/24 07:00 Pulse 70 07/06/24 07:00 Resp 16 07/06/24 07:00 BP 174/75 07/06/24 07:00 Pulse Ox 95 07/06/24 07:00 FiO2 Intake & Output 07/05/24 07/06/24 07/06/24 18:59 06:59 18:59 Intake Total 240 Output Total 260 900 Balance - Intake: Oral 240 Output: Urine 260 900 Other: Voiding Method External Catheter External Catheter - Labs CBC & Chem 7: 07/05/24 04:44 07/06/24 07:09 Labs: Abnormal Lab Results - Last 24 Hours (Table) 07/06/24 Range/Units 07:09 Potassium 3.2 L (3.5-5.1) mmol/L Chloride 116 H (98-107) mmol/L Carbon Dioxide 20 L (22-30) mmol/L Calcium 8.2 L (8.4-10.2) mg/dL
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
--- NOTE | 2024-07-06 17:22 | P.PN ---
Subjective Progress Note Date: 07/05/24 73-year-old female present to the emergency department with concerns for abdominal problems. Onset of symptoms was around 4 this morning. Patient has had nausea and vomited around 2 or 3 times. Patient feels dry. Patient did have a couple episodes of diarrhea. Patient has diffuse abdominal discomfort, mostly epigastric. Patient also has some right-sided chest discomfort. Patient states she may feel a little bit short of breath. - EKG reveals sinus bradycardia with no signs of acute ischemia - Chest CTA: Negative for pulmonary embolism - CT abdomen pelvis: Negative for acute process - Laboratory data: WBC 8.2. Hemoglobin 13.1. Platelet count 231. Sodium 141. Potassium 4.0. BUN 11. Creatinine 0.80. Troponin negative x 3. - Current home cardiac medications include Lipitor 40 mg at night, aspirin 81 mg daily, metoprolol succinate 12.5 mg daily - Most recent echocardiogram obtained in May 2024 revealed ejection fraction 60 to 65% with no obvious regional wall motion abnormalities or valvular dysfunction - Cardiac catheterization history: No previous cardiac catheterization records available for review. However patient used to follow in the office in 2019 and documentation from cardiology office states that patient had a heart cath in 2017 without evidence of obstructive CAD. -Patient has been evaluated by cardiology; chest/abdominal pain is deemed related to GI; patient has been placed on Protonix 40 mg IV every 12 hours; patient reports abdominal pain and nausea claiming she is not ready for discharge -Will continue with IV Protonix for another 24 hours with discharge tomorrow morning Objective - Vital Signs Vital signs: Vital Signs Temp 98.5 F 07/05/24 07:00 Pulse 59 L 07/05/24 07:00 Resp 16 07/05/24 07:00 BP 145/66 07/05/24 07:00 Pulse Ox 96 07/05/24 07:00 FiO2 Intake & Output 07/04/24 07/05/24 07/05/24 18:59 06:59 18:59 Weight 68.039 kg Other: Voiding Method External Catheter External Catheter External Catheter # Voids 2 - Exam GENERAL: Well-developed in no acute distress. HEENT: Head is normocephalic. Pupils are equal, round. Sclerae anicteric. Mucous membranes of the mouth are moist. Neck supple. No JVD or thyromegaly LUNGS: Respirations even and unlabored. Lungs essentially clear to auscultation bilaterally. HEART: Regular rate and rhythm. S1 and S2 heard. ABDOMEN: Soft. Nondistended. Nontender. EXTREMITIES: Normal range of motion. No clubbing or cyanosis. Peripheral pulses intact. No lower extremity edema NEUROLOGIC: Awake and alert. Oriented x 3. - Labs CBC & Chem 7: 07/05/24 04:44 07/06/24 07:09 Labs: Abnormal Lab Results - Last 24 Hours (Table) 07/04/24 07/05/24 07/05/24 Range/Units 12:32 04:44 04:44 RBC 3.58 L (4.10-5.20) X 10*6/uL Hgb 11.7 L (12.0-15.0) g/dL Hct 34.0 L (37.2-46.3) % MCH 32.7 H (27.0-32.0) pg Eosinophils # 0 L (0.04-0.35) X 10*3/uL Chloride 109 H 110 H (98-107) mmol/L Carbon Dioxide 18.0 L (21.6-31.8) mmol/L Anion Gap 13.00 H (4.00-12.00) mmol/L BUN 8.1 L (9.0-27.0) mg/dL BUN/Creatinine Ratio 11.57 L (12.00-20.00) Ratio Glucose 111 H 122 H (74-99) mg/dL Total Protein 5.9 L (6.2-8.2) g/dL Albumin 3.7 L (3.8-4.9) g/dL Assessment and Plan Assessment: 1. Chest pain rule out acute coronary syndrome; first set of troponin unrema rkable; CT of the chest completed which was negative for PE -Patient will be admitted to telemetry; monitor EKG and trend troponin -Recommend 2D echo; consult cardiology for evaluation and further rec ommendations 2. Abdominal pain; CT abdomen pelvis does not reveal any acute abdominal or pelvic process -- Given marked tenderness in epigastric area patient will be placed on Protonix 40 mg IV every 12 hours -Will need follow-up with GI as an outpatient 3. Hyperlipidemia; Lipitor 40 mg nightly 4. Depression/anxiety; patient is currently on Remeron 15 mg p.o. nightly; takes Seroquel 25 mg twice daily; reports she usually takes Ativan at home -Follows up with [facility] 5. Constipation; Colace 100 mg daily DVT prophylaxis; SCDs CODE STATUS; full code
--- NOTE | 2024-07-06 17:23 | P.PN ---
Subjective Progress Note Date: 07/06/24 73-year-old female present to the emergency department with concerns for abdominal problems. Onset of symptoms was around 4 this morning. Patient has had nausea and vomited around 2 or 3 times. Patient feels dry. Patient did have a couple episodes of diarrhea. Patient has diffuse abdominal discomfort, mostly epigastric. Patient also has some right-sided chest discomfort. Patient states she may feel a little bit short of breath. - EKG reveals sinus bradycardia with no signs of acute ischemia - Chest CTA: Negative for pulmonary embolism - CT abdomen pelvis: Negative for acute process - Laboratory data: WBC 8.2. Hemoglobin 13.1. Platelet count 231. Sodium 141. Potassium 4.0. BUN 11. Creatinine 0.80. Troponin negative x 3. - Current home cardiac medications include Lipitor 40 mg at night, aspirin 81 mg daily, metoprolol succinate 12.5 mg daily - Most recent echocardiogram obtained in May 2024 revealed ejection fraction 60 to 65% with no obvious regional wall motion abnormalities or valvular dysfunction - Cardiac catheterization history: No previous cardiac catheterization records available for review. However patient used to follow in the office in 2019 and documentation from cardiology office states that patient had a heart cath in 2017 without evidence of obstructive CAD. -Patient has been evaluated by cardiology; chest/abdominal pain is deemed related to GI; patient has been placed on Protonix 40 mg IV every 12 hours; patient reports abdominal pain and nausea claiming she is not ready for discharge -Will continue with IV Protonix for another 24 hours with discharge tomorrow morning 07/06/2024 Patient remains hemodynamically stable; has been cleared by cardiology for discharge; has been on IV Protonix for past 48 hours -Patient reports excessive anxiety; claims she has been evaluated by [facility] and they have refused to give her any Ativan; patient requesting to be discharged on Ativan; claims she is not able to care for self at home and it is requesting to consult with case management/PHP SOFTWARE ENGINEER for discharge resources; patient wants to be evaluated by PT/OT and possibly discharge to skilled rehab Case management has been consulted; discharge once arrangements are made Objective - Vital Signs Vital signs: Vital Signs Temp 98.5 F 07/06/24 15:00 Pulse 56 L 07/06/24 15:00 Resp 18 07/06/24 15:00 BP 146/67 07/06/24 15:00 Pulse Ox 97 07/06/24 15:00 FiO2 Intake & Output 07/05/24 07/06/24 07/06/24 18:59 06:59 18:59 Intake Total 240 60 Output Total 260 900 650 Balance -31 -900 -555 Intake: Oral 240 60 Output: Urine 260 900 650 Other: Voiding Method External Catheter External Catheter # Voids 1 # Bowel Movements 1 - Exam GENERAL: Well-developed in no acute distress. HEENT: Head is normocephalic. Pupils are equal, round. Sclerae anicteric. Mucous membranes of the mouth are moist. Neck supple. No JVD or thyromegaly LUNGS: Respirations even and unlabored. Lungs essentially clear to auscultation bilaterally. HEART: Regular rate and rhythm. S1 and S2 heard. ABDOMEN: Soft. Nondistended. Nontender. EXTREMITIES: Normal range of motion. No clubbing or cyanosis. Peripheral pulses intact. No lower extremity edema NEUROLOGIC: Awake and alert. Oriented x 3. - Labs CBC & Chem 7: 07/05/24 04:44 07/06/24 07:09 Labs: Abnormal Lab Results - Last 24 Hours (Table) 07/06/24 Range/Units 07:09 Potassium 3.2 L (3.5-5.1) mmol/L Chloride 116 H (98-107) mmol/L Carbon Dioxide 20 L (22-30) mmol/L Calcium 8.2 L (8.4-10.2) mg/dL Assessment and Plan Assessment: 1. Chest pain rule out acute coronary syndrome; first set of troponin unremarkable; CT of the chest completed which was negative for PE -Patient will be admitted to telemetry; monitor EKG and trend troponin -Recommend 2D echo; consult cardiology for evaluation and further recommendations 2. Abdominal pain; CT abdomen pelvis does not reveal any acute abdominal or pelvic process -- Given marked tenderness in epigastric area patient will be placed on Protonix 40 mg IV every 12 hours -Will need follow-up with GI as an outpatient 3. Hyperlipidemia; Lipitor 40 mg nightly 4. Depression/anxiety; patient is currently on Remeron 15 mg p.o. nightly; takes Seroquel 25 mg twice daily; reports she usually takes Ativan at home -Follows up with [facility] 5. Constipation; Colace 100 mg daily DVT prophylaxis; SCDs CODE STATUS; full code
[2024-07-07] MEDS: DIPHENOX-ATROP 2.5-0.025 MG 1 EACH TAB PO PRN (08:33)
--- NOTE | 2024-07-07 10:12 | P.PN ---
Subjective Progress Note Date: 07/07/24 HISTORY OF PRESENT ILLNESS: This is a 73-year-old female with a past medical history significant for mu ltiple sclerosis, anxiety, depression, and former nicotine dependence. Patient does not follow with a enhanced environmental operator. She previously followed with Dr. Lorna Lopez and was last seen in the office in July 2018. We have been asked to see the patient in consultation for chest pain. Patient examined at the bedside. Patient was recently admitted to the hospital in May 2024. At that time the patient had had multiple complaints due to her physician apparently cutting her off of Ativan cold turkey. Patient was having anxiety, racing thoughts, insomnia, abdominal pain with no bowel movement for 2 weeks, and chest discomfort. Patient underwent an echocardiogram revealing normal LV systolic function with no valvular abnormalities and no regional wall motion abnormalities. She did undergo EGD and colonoscopy with general surgery revealing antral gastritis and normal colon. The patient presented back to the hospital with a chief complaint of abdominal pain. Patient reports having robert sea and a few episodes of vomiting. Her pain appears to be in the epigastric region. She denies having chest pain at the time of examination. The patient was noted to be mildly bradycardic with heart rate in the 50s. She is on metoprolol succinate 12.5 mg on an outpatient basis. DIAGNOSTICS: - EKG reveals sinus bradycardia with no signs of acute ischemia - Chest CTA: Negative for pulmonary embolism - CT abdomen pelvis: Negative for acute process - Laboratory data: WBC 8.2. Hemoglobin 13.1. Platelet count 231. Sodium 141. Potassium 4.0. BUN 11. Creatinine 0.80. Troponin negative x 3. - Current home cardiac medications include Lipitor 40 mg at night, aspirin 81 mg daily, metoprolol succinate 12.5 mg daily - Most recent echocardiogram obtained in May 2024 revealed ejection fr action 60 to 65% with no obvious regional wall motion abnormalities or valvular dysfunction - Cardiac catheterization history: No previous cardiac catheterization records available for review. However patient used to follow in the office in 2018 and documentation from cardiology office states that patient had a heart cath in 2017 without evidence of obstructive CAD. 07/06/2024 Patient examined this morning the bedside. Patient states that she feels "awful" this morning. She currently denies chest pain or pressure. She denies shortness of breath. Patient's blood pressure is elevated this morning with a reading of 174/75. However previous readings are 122/74 and 136/70. Telemetry this morning reveals sinus mechanism with a heart in the 60s and 70s. Patient apparently overnight did dip into the 30s briefly. 07/07/2024 Patient seen and examined. Blood pressure 124/59, heart rate 47-56, pulse ox 94% on room air. Patient is complaining of diarrhea and symptoms related to gastroenteritis. PHYSICAL EXAM: VITAL SIGNS: Reviewed. GENERAL: Well-developed in no acute distress. HEENT: Head is normocephalic. Pupils are equal, round. Sclerae anicteric. Mucous membranes of the mouth are moist. Neck supple. No JVD or thyromegaly LUNGS: Respirations even and unlabored. Lungs essentially clear to auscultation bilaterally. HEART: Regular rate and rhythm. S1 and S2 heard. ABDOMEN: Soft. Nondistended. Nontender. EXTREMITIES: Normal range of motion. No clubbing or cyanosis. Peripheral pulses intact. No lower extremity edema NEUROLOGIC: Awake and alert. Oriented x 3. ASSESSMENT: Atypical chest pain, troponin negative x 3, appears GI in etiology Asymptomatic sinus bradycardia Gastroenteritis Status post EGD and colonoscopy revealing antral gastritis and normal colon, May 2024 History of cardiac catheterization in 2017 without obstructive CAD, per cardiology office records Hyperlipidemia, recent LDL 142 History of multiple sclerosis, diagnosed in September, per patient Depression Anxiety Former nicotine dependence PLAN: An acute coronary event has been ruled out No need to repeat echocardiogram as this was performed in May 2024 Continue current cardiac medications Metoprolol discontinued on admission secondary to bradycardia Patient's symptoms appear to be GI in etiology as she is complaining of abdominal pain and had nausea and vomiting at home and now has diarrhea Add Lomotil Patient is stable for discharge home today from a cardiac standpoint Patient to follow-up in the office with Dr. Soler as he saw her during recent hospitalization for an outpatient stress test Nurse practitioner note has been reviewed by physician. Signing provider agrees with the documented findings, assessment, and plan of care documented by DIRECTOR OF COUNSELING as a scribe. Objective - Vital Signs Vital signs: Vital Signs Temp 98.5 F 07/07/24 02:00 Pulse 51 L 07/07/24 02:00 Resp 17 07/07/24 02:00 BP 124/59 07/07/24 02:00 Pulse Ox 94 L 07/07/24 02:00 FiO2 Intake & Output 07/06/24 07/07/24 07/07/24 18:59 06:59 18:59 Intake Total 60 Output Total 1350 600 Balance -1290 -600 Intake: Oral 60 Output: Urine 1350 600 Other: Voiding Method External Catheter # Voids 1 1 # Bowel Movements 1 - Labs CBC & Chem 7: 07/05/24 04:44 07/06/24 07:09 Labs: Abnormal Lab Results - Last 24 Hours (Table) 07/06/24 Range/Units 07:09 Potassium 3.2 L (3.5-5.1) mmol/L Chloride 116 H (98-107) mmol/L Carbon Dioxide 20 L (22-30) mmol/L Calcium 8.2 L (8.4-10.2) mg/dL
--- NOTE | 2024-07-07 17:30 | P.PN ---
Subjective 73-year-old female present to the emergency department with concerns for abdominal problems. Onset of symptoms was around 4 this morning. Patient has had nausea and vomited around 2 or 3 times. Patient feels dry. Patient did have a couple episodes of diarrhea. Patient has diffuse abdominal discomfort, mostly epigastric. Patient also has some right-sided chest discomfort. Patient states she may feel a little bit short of breath. - EKG reveals sinus bradycardia with no signs of acute ischemia - Chest CTA: Negative for pulmonary embolism - CT abdomen pelvis: Negative for acute process - Laboratory data: WBC 8.2. Hemoglobin 13.1. Platelet count 231. Sodium 141. Potassium 4.0. BUN 11. Creatinine 0.80. Troponin negative x 3. - Current home cardiac medications include Lipitor 40 mg at night, aspirin 81 mg daily, metoprolol succinate 12.5 mg daily - Most recent echocardiogram obtained in May 2024 revealed ejection fraction 60 to 65% with no obvious regional wall motion abnormalities or valvular dysfunction - Cardiac catheterization history: No previous cardiac catheterization records available for review. However patient used to follow in the office in 2019 and documentation from cardiology office states that patient had a heart cath in 2017 without evidence of obstructive CAD. -Patient has been evaluated by cardiology; chest/abdominal pain is deemed related to GI; patient has been placed on Protonix 40 mg IV every 12 hours; patient reports abdominal pain and nausea claiming she is not ready for discharge -Will continue with IV Protonix for another 24 hours with discharge tomorrow morning 07/06/2024 Patient remains hemodynamically stable; has been cleared by cardiology for discharge; has been on IV Protonix for past 48 hours -Patient reports excessive anxiety; claims she has been evaluated by [facility] and they have refused to give her any Ativan; patient requesting to be discharged on Ativan; claims she is not able to care for self at home and it is requesting to consult with case management/SYSTEMS LEAD for discharge resources; patient wants to be evaluated by PT/OT and possibly discharge to skilled rehab Case management has been consulted; discharge once arrangements are made 07/07 Patient still complaining from nausea, no vomiting. She cannot tolerate clear liquid diet No abdominal pain Patient reports few bouts of small loose bowel movement. C. difficile is requested However no fever, no leukocytosis. On admission CT of the abdomen and pelvis was negative for acute process. Will CT of the chest showing no pulmonary embolism Patient states recently she was treated for UTI, she feels a little bit abnormality in her urine but no overt symptoms. She complains mainly of a decline in the beginning of his urination which is kind of unusual for her there fore we are going to recheck urine analysis and check a bladder scan In the meantime patient kept on IV Protonix and normal saline at 75 mL/h Precision Grinder External: The patient for chest pain. Patient currently denies any chest pain or significant shortness of breath Review of systems CONSTITUTIONAL: No fever, no malaise, no fatigue. HEENT: No recent visual problems or hearing problems. Denied any sore throat. CARDIOVASCULAR: No orthopnea, PND, no palpitations, no syncope. PULMONARY: No shortness of breath, no cough, no hemoptysis. GENITOURINARY: Denies any burning micturition, frequency, or urgency. MUSCULOSKELETAL/RHEUMATOLOGICAL: Denies any joint pain, swelling, or any muscle pain. ENDOCRINE: Denies any polyuria or polydipsia. Active Medications Generic Name Dose Route Start Last Admin Trade Name Shaanq PRN Reason Stop Dose Admin Acetaminophen 650 mg 07/04/24 14:32 07/07/24 00:47 Acetaminophen Tab 325 Mg Tab PO 650 mg Q6HR PRN Administration Mild Pain or Fever > 100.5 Aspirin 81 mg 07/05/24 09:00 07/07/24 08:33 Aspirin 81 Mg PO 81 mg DAILY BRAYDEN Administration Atorvastatin Calcium 40 mg 07/04/24 21:00 07/06/24 19:34 Atorvastatin 40 Mg Tab PO 40 mg HS BRAYDEN Administration Diphenoxylate HCl/Atropine 1 each 07/07/24 08:22 07/07/24 08:33 Diphenox-Atrop 2.5-0.025 Mg 1 Each Tab PO 1 each Q6HR PRN Administration Diarrhea Sodium Chloride 1,000 mls @ 75 mls/hr 07/04/24 14:45 07/07/24 08:46 Saline 0.9% IV 75 mls/hr .[id number] BRAYDEN Administration Lorazepam 1 mg 07/04/24 21:00 07/07/24 08:33 Lorazepam 1 Mg Tab PO 1 mg Q12HR BRAYDEN Administration Mirtazapine 15 mg 07/04/24 21:00 07/06/24 19:34 Mirtazapine 15 Mg Tab PO 15 mg HS BRAYDEN Administration Naloxone HCl 0.2 mg 07/04/24 14:32 Naloxone 0.4 Mg/Ml 1 Ml Vial IV Q2M PRN Opioid Reversal Ondansetron HCl 4 mg 07/04/24 14:32 07/07/24 08:33 Ondansetron 4 Mg/2 Ml Vial IVP 4 mg Q8HR PRN Administration Nausea And Vomiting Pantoprazole Sodium 40 mg 07/04/24 21:00 07/07/24 08:33 Pantoprazole 40 Mg/10 Ml Vial IVP 40 mg BID BRAYDEN Administration Quetiapine Fumarate 25 mg 07/04/24 21:00 07/07/24 08:33 Quetiapine 25 Mg Tab PO 25 mg BID BRAYDEN Administration Objective - Vital Signs Vital signs: Vital Signs Temp 98.2 F 07/07/24 07:00 Pulse 61 07/07/24 07:00 Resp 17 07/07/24 07:00 BP 155/81 07/07/24 07:00 Pulse Ox 94 L 07/07/24 07:00 FiO2 Intake & Output 07/06/24 07/07/24 07/07/24 18:59 06:59 18:59 Intake Total 60 118 Output Total 1350 600 Balance -1290 -600 118 Intake: Oral 60 118 Output: Urine 1350 600 Other: Voiding Method External Catheter External Catheter # Voids 1 1 # Bowel Movements 1 - Exam GENERAL: The patient is alert and oriented x3, not in any acute distress. Well developed, well nourished. HEENT: Pupils are round and equally reacting to light. EOMI. No scleral icterus. No conjunctival pallor. Normocephalic, atraumatic. No pharyngeal erythema. No thyromegaly. CARDIOVASCULAR: S1 and S2 present. No murmurs, rubs, or gallops. PULMONARY: Chest is clear to auscultation, no wheezing , no crackles. ABDOMEN: Soft, nontender, nondistended, normoactive bowel sounds. No palpable organomegaly. MUSCULOSKELETAL: No joint swelling or deformity. EXTREMITIES: No cyanosis, clubbing, or pedal edema. NEUROLOGICAL: Gross neurological examination did not reveal any focal deficits. SKIN: No rashes. no petechiae. - Labs CBC & Chem 7: 07/05/24 04:44 07/06/24 07:09 Assessment and Plan Assessment: 1. Chest pain rule out acute coronary syndrome; first set of troponin unremarkable; CT of the chest completed which was negative for PE -currently resolved - cardiology team is following closely -CTA of the chest is negative for PE 2. GI symptoms of nausea decreased appetite and diarrhea. No abdominal pain. Possible gastric irritation versus reactive gastroenteritis. Rule out infection with C. difficile Abdominal pain; CT abdomen pelvis does not reveal any acute abdominal or pelvic process -- placed on Protonix 40 mg IV every 12 hours -Will need follow-up with GI as an outpatient -Check for C. difficile -Patient also with some dried blood in her urination with recent UTI. We will check urine analysis and bladder scan 3. Hyperlipidemia; Lipitor 40 mg nightly 4. Depression/anxiety; patient is currently on Remeron 15 mg p.o. nightly; takes Seroquel 25 mg twice daily; reports she usually takes Ativan at home -Follows up with [facility] 5. Constipation; Colace 100 mg daily, currently on hold DVT prophylaxis; SCDs. Subcutaneous heparin CODE STATUS; full code
[2024-07-07] MEDS: ENOXAPARIN 40 MG/0.4 ML SYRINGE SQ SCH (17:40)
[2024-07-07] MEDS: POTASSIUM CHLORIDE ER 20 MEQ TAB.ER PO STA (17:41)
[2024-07-08 08:20] LABS: Appearance,Urine Clear (Clear); Bilirubin,Urine Negative (Negative); Blood,Urine Negative (Negative); Color,Urine Colorless; Glucose,Urine (UA) Negative (Negative); Ketones,Urine 1+ (Negative); Leukocyte Esterase,Urine Negative (Negative); Nitrite,Urine Negative (Negative); Protein,Urine Negative (Negative); Specific Gravity,Urine 1.005 (1.001-1.035); Urobilinogen,Urine <2.0 mg/dL (<2.0)
[2024-07-08 08:48] LABS: Basophils # (A) 0.03 X 10*3/uL (0.00-0.10); Basophils % (A) 0.3 %; Eosinophils # (A) 0.14 X 10*3/uL (0.04-0.35); Eosinophils % (A) 1.6 %; HCT 34.3 % (37.2-46.3); HGB 11.5 g/dL (12.0-15.0); Lymphocytes # (A) 3.66 X 10*3/uL (0.90-5.00); Lymphocytes % (A) 42.7 %; MCH 32.6 pg (27.0-32.0); MCHC 33.5 g/dL (32.0-37.0); MCV 97.2 FL (80.0-97.0); Mean Platelet Volume 11.2 FL (9.5-12.2); Monocytes # (A) 0.56 X 10*3/uL (0.20-1.00); Monocytes % (A) 6.5 %; NRBC Per 100 WBC 0 X 10*3/uL (0.00-0.01); Neutrophils # (A) 4.17 X 10*3/uL (1.80-7.70); Neutrophils % (A) 48.7 %; Platelet Count 172 X 10*3/uL (140-440); RBC 3.53 X 10*6/uL (4.10-5.20); RDW 14.1 % (11.5-14.5); WBC 8.58 X 10*3/uL (4.50-10.00)
[2024-07-08 08:56] LABS: Magnesium 1.6 mg/dL (1.5-2.4)
[2024-07-08 09:38] LABS: ALT 13 U/L (8-44); AST 21 U/L (13-35); Albumin 3.4 g/dL (3.8-4.9); Albumin/Globulin Ratio 1.89 Ratio (1.60-3.17); Alkaline Phosphatase 75 U/L (41-126); BUN/Creat Ratio 13.14 Ratio (12.00-20.00); Bilirubin, Conjugated 0.25 mg/dL (0.20-0.40); Bilirubin,Unconjugated 0.55 mg/dL (0.20-1.00); Blood Urea Nitrogen 9.2 mg/dL (9.0-27.0); Calcium 8.1 mg/dL (8.7-10.3); Chloride 108 mmol/L (96-109); Globulin 1.8 g/dL (1.6-3.3); Glucose 64 mg/dL (70-110); Potassium 3.1 mmol/L (3.5-5.5); Sodium 141 mmol/L (135-145); Total Bilirubin 0.8 mg/dL (0.3-1.2); Total Protein 5.2 g/dL (6.2-8.2)
[2024-07-08] MEDS: POTASSIUM CHLORIDE ER 20 MEQ TAB.ER PO STA (13:32)
[2024-07-08] MEDS: busPIRone HCl 10 MG TAB PO SCH (15:19)
[2024-07-08] MEDS: LORazepam 0.5 MG TAB PO SCH (21:21)
--- NOTE | 2024-07-08 23:03 | P.PN ---
Subjective 73-year-old female present to the emergency department with concerns for abdominal problems. Onset of symptoms was around 4 this morning. Patient has had nausea and vomited around 2 or 3 times. Patient feels dry. Patient did have a couple episodes of diarrhea. Patient has diffuse abdominal discomfort, mostly epigastric. Patient also has some right-sided chest discomfort. Patient states she may feel a little bit short of breath. - EKG reveals sinus bradycardia with no signs of acute ischemia - Chest CTA: Negative for pulmonary embolism - CT abdomen pelvis: Negative for acute process - Laboratory data: WBC 8.2. Hemoglobin 13.1. Platelet count 231. Sodium 141. Potassium 4.0. BUN 11. Creatinine 0.80. Troponin negative x 3. - Current home cardiac medications include Lipitor 40 mg at night, aspirin 81 mg daily, metoprolol succinate 12.5 mg daily - Most recent echocardiogram obtained in May 2024 revealed ejection fraction 60 to 65% with no obvious regional wall motion abnormalities or valvular dysfunction - Cardiac catheterization history: No previous cardiac catheterization records available for review. However patient used to follow in the office in 2019 and documentation from cardiology office states that patient had a heart cath in 2017 without evidence of obstructive CAD. -Patient has been evaluated by cardiology; chest/abdominal pain is deemed related to GI; patient has been placed on Protonix 40 mg IV every 12 hours; patient reports abdominal pain and nausea claiming she is not ready for discharge -Will continue with IV Protonix for another 24 hours with discharge tomorrow morning 07/06/2024 Patient remains hemodynamically stable; has been cleared by cardiology for discharge; has been on IV Protonix for past 48 hours -Patient reports excessive anxiety; claims she has been evaluated by [facility] and they have refused to give her any Ativan; patient requesting to be discharged on Ativan; claims she is not able to care for self at home and it is requesting to consult with 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 She cannot tolerate clear liquid diet No abdominal pain Patient reports few bouts of small loose bowel movement. C. difficile is requested However no fever, no leukocytosis. On admission CT of the abdomen and pelvis was negative for acute process. Will CT of the chest showing no pulmonary embolism Patient states recently she was treated for UTI, she feels a little bit abnormality in her urine but no overt symptoms. She complains mainly of a decline in the beginning of his urination which is kind of unusual for her there fore we are going to recheck urine analysis and check a bladder scan In the meantime patient kept on IV Protonix and normal saline at 75 mL/h Receiving Tank Operator: The patient for chest pain. Patient currently denies any chest pain or significant shortness of breath 07/08 Patient still not eating well No significant abdominal pain or tenderness. She is having watery bowel movement but no small amount. C. difficile checked and was negative. She is on normal sinus 75 mL/h She is on Lomotil as needed with no benefit. We going to discontinue Lomotil . Patient fully awake and oriented. Patient states that she moved recently to [place] and she was taking Ativan 1 mg twice daily. She told me she went to her new PCP Dr. Bah who declined to prescribe her more Ativan. I checked labs with our pharmacy, it looks like her last prescription of Ativan was 20 tablets for 10 days last May from Dr. Hyde Currently patient is getting Ativan 1 mg twice daily. I explained the risk and benefits of this medication. Patient states she takes Ativan for anxiety. I told her the risk of this medication more than benefit than benefit I recommended we taper it down. she agrees and I lowered Ativan to 0.5 twice daily. At the same time I added BuSpar 10 mg 3 times daily Since most recent GI team. repeat urine analysis looks normal Objective - Vital Signs Vital signs: Vital Signs Temp 98.4 F 07/08/24 07:00 Pulse 54 L 07/08/24 07:00 Resp 16 07/08/24 07:00 BP 148/76 07/08/24 07:00 Pulse Ox 95 07/08/24 07:00 FiO2 Intake & Output 07/07/24 07/08/24 07/08/24 18:59 06:59 18:59 Intake Total 354 Output Total 300 Balance 54 Intake: Oral 354 Output: Urine 300 Other: Voiding Method External Catheter External Catheter # Voids 3 # Bowel Movements 2 - Exam GENERAL: The patient is alert and oriented x3, not in any acute distress. Well developed, well nourished. HEENT: Pupils are round and equally reacting to light. EOMI. No scleral icterus. No conjunctival pallor. Normocephalic, atraumatic. No pharyngeal erythema. No thyromegaly. CARDIOVASCULAR: S1 and S2 present. No murmurs, rubs, or gallops. PULMONARY: Chest is clear to auscultation, no wheezing , no crackles. ABDOMEN: Soft, nontender, nondistended, normoactive bowel sounds. No palpable organomegaly. MUSCULOSKELETAL: No joint swelling or deformity. EXTREMITIES: No cyanosis, clubbing, or pedal edema. NEUROLOGICAL: Gross neurological examination did not reveal any focal deficits. SKIN: No rashes. no petechiae. - Labs CBC & Chem 7: 07/08/24 05:29 07/08/24 05:29 Labs: Abnormal Lab Results - Last 24 Hours (Table) 07/08/24 07/08/24 07/08/24 Range/Units 05: 05:29 07:59 RBC 3.53 L (4.10-5.20) X 10*6/uL Hgb 11.5 L (12.0-15.0) g/dL Hct 34.3 L (37.2-46.3) % MCV 97.2 H (80.0-97.0) FL MCH 32.6 H (27.0-32.0) pg Potassium 3.1 L (3.5-5.5) mmol/L Carbon Dioxide 19.0 L (21.6-31.8) mmol/L Anion Gap 14.00 H (4.00-12.00) mmol/L Glucose 64 L (70-110) mg/dL Calcium 8.1 L (8.7-10.3) mg/dL Total Protein 5.2 L (6.2-8.2) g/dL Albumin 3.4 L (3.8-4.9) g/dL Urine Ketones 1+ H (Negative) Assessment and Plan Assessment: 1. Chest pain rule out acute coronary syndrome; first set of troponin unremarkable; CT of the chest completed which was negative for PE -currently resolved - cardiology team is following closely -CTA of the chest is negative for PE 2. GI symptoms of nausea decreased appetite and diarrhea. No abdominal pain. Possible gastric irritation versus reactive gastroenteritis. infection with C. difficile ruled out Abdominal pain; CT abdomen pelvis does not reveal any acute abdominal or pelvic process -- placed on Protonix 40 mg IV every 12 hours -- GI team consulted --DC Lomotil. Ordered Questran -Patient also with some dried blood in her urination with recent UTI. repeat urine analysis looks normal and bladder scan 3. Hyperlipidemia; Lipitor 40 mg nightly 4. Depression/anxiety; patient is currently on Remeron 15 mg p.o. nightly; takes Seroquel 25 mg twice daily; reports she usually takes Ativan at home -Follows up with [facility] 5. Constipation; Colace 100 mg daily, currently on hold 6. Anxiety -- Taper down Ativan 1 mg twice daily down to 0.5 mg twice daily. Add BuSpar DVT prophylaxis; SCDs. Subcutaneous heparin CODE STATUS; full code
[2024-07-08] MEDS: CHOLESTYRAMINE (WITH SUGAR) 4 GM PACKET PO SCH (23:40)
[2024-07-09] MEDS: PROCHLORPERAZINE INJ 10 MG/2 ML VIAL IVP STA (01:07)
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
[2024-07-09 15:09] LABS: Magnesium 1.8 mg/dL (1.6-2.3); Potassium 3.3 mmol/L (3.5-5.1)
[2024-07-09] MEDS: MAGNESIUM SULFATE-D5W PMX 1 GM in DEXTROSE/WATER 1 100ML.BAG IVPB ONE (17:03)
[2024-07-09] MEDS: POTASSIUM CHLORIDE ER 20 MEQ TAB.ER PO STA (17:04)
--- NOTE | 2024-07-09 18:29 | P.PN ---
Subjective 73-year-old female present to the emergency department with concerns for abdominal problems. Onset of symptoms was around 4 this morning. Patient has had nausea and vomited around 2 or 3 times. Patient feels dry. Patient did have a couple episodes of diarrhea. Patient has diffuse abdominal discomfort, mostly epigastric. Patient also has some right-sided chest discomfort. Patient states she may feel a little bit short of breath. - EKG reveals sinus bradycardia with no signs of acute ischemia - Chest CTA: Negative for pulmonary embolism - CT abdomen pelvis: Negative for acute process - Laboratory data: WBC 8.2. Hemoglobin 13.1. Platelet count 231. Sodium 141. Potassium 4.0. BUN 11. Creatinine 0.80. Troponin negative x 3. - Current home cardiac medications include Lipitor 40 mg at night, aspirin 81 mg daily, metoprolol succinate 12.5 mg daily - Most recent echocardiogram obtained in May 2024 revealed ejection fraction 60 to 65% with no obvious regional wall motion abnormalities or valvular dysfunction - Cardiac catheterization history: No previous cardiac catheterization records available for review. However patient used to follow in the office in 2019 and documentation from cardiology office states that patient had a heart cath in 2017 without evidence of obstructive CAD. -Patient has been evaluated by cardiology; chest/abdominal pain is deemed related to GI; patient has been placed on Protonix 40 mg IV every 12 hours; patient reports abdominal pain and nausea claiming she is not ready for discharge -Will continue with IV Protonix for another 24 hours with discharge tomorrow morning 07/06/2024 Patient remains hemodynamically stable; has been cleared by cardiology for discharge; has been on IV Protonix for past 48 hours -Patient reports excessive anxiety; claims she has been evaluated [facility] and they have refused to give her any Ativan; patient requesting to be discharged on Ativan; claims she is not able to care for self at home and it is requesting to consult with 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 She cannot tolerate clear liquid diet No abdominal pain Patient reports few bouts of small loose bowel movement. C. difficile is requested However no fever, no leukocytosis. On admission CT of the abdomen and pelvis was negative for acute process. Will CT of the chest showing no pulmonary embolism Patient states recently she was treated for UTI, she feels a little bit abnormality in her urine but no overt symptoms. She complains mainly of a decline in the beginning of his urination which is kind of unusual for her there fore we are going to recheck urine analysis and check a bladder scan In the meantime patient kept on IV Protonix and normal saline at 75 mL/h Brood Hatchery Manager: The patient for chest pain. Patient currently denies any chest pain or significant shortness of breath 07/08 Patient still not eating well No significant abdominal pain or tenderness. She is having watery bowel movement but no small amount. C. difficile checked and was negative. She is on normal sinus 75 mL/h She is on Lomotil as needed with no benefit. We going to discontinue Lomotil . Patient fully awake and oriented. Patient states that she moved recently to [place] and she was taking Ativan 1 mg twice daily. She told me she went to her new PCP Dr. Bah who declined to prescribe her more Ativan. I checked labs with our pharmacy, it looks like her last prescription of Ativan was 20 tablets for 10 days last May from Dr. Hyde Currently patient is getting Ativan 1 mg twice daily. I explained the risk and benefits of this medication. Patient states she takes Ativan for anxiety. I told her the risk of this medication more than benefit than benefit I recommended we taper it down. she agrees and I lowered Ativan to 0.5 twice daily. At the same time I added BuSpar 10 mg 3 times daily Since most recent GI team. repeat urine analysis looks normal 07/09 Patient diarrhea is improving, she has 1 bowel movement today. She is on Questran We will check tomorrow if still has diarrhea we will add Imodium. No abdominal pain Patient evaluated by GI team most likely patient has irritable bowel syndrome. GI team cleared her for discharge Blood potassium and magnesium replaced Patient clinically stable for discharge however she was complaining from racing thoughts and bad dreams and requested psych consult. Psychiatry team are consulted Possible discharge in 24 to 48 hours if she keeps improvement. However her mood looks better today therefore we are going to add trazodone to help her with these thoughts at bedtime Objective - Vital Signs Vital signs: Vital Signs Temp 98.7 F 07/09/24 15:00 Pulse 64 07/09/24 15:00 Resp 17 07/09/24 15:00 BP 165/68 07/09/24 15:00 Pulse Ox 96 07/09/24 15:00 FiO2 Intake & Output 07/08/24 07/09/24 07/09/24 18:59 06:59 18:59 Intake Total 358 717 Balance 358 717 Intake: Oral 358 717 Other: # Voids 4 3 3 - Exam GENERAL: The patient is alert and oriented x3, not in any acute distress. Well developed, well nourished. HEENT: Pupils are round and equally reacting to light. EOMI. No scleral icterus. No conjunctival pallor. Normocephalic, atraumatic. No pharyngeal erythema. No thyromegaly. CARDIOVASCULAR: S1 and S2 present. No murmurs, rubs, or gallops. PULMONARY: Chest is clear to auscultation, no wheezing , no crackles. ABDOMEN: Soft, nontender, nondistended, normoactive bowel sounds. No palpable organomegaly. MUSCULOSKELETAL: No joint swelling or deformity. EXTREMITIES: No cyanosis, clubbing, or pedal edema. NEUROLOGICAL: Gross neurological examination did not reveal any focal deficits. SKIN: No rashes. no petechiae. - Labs CBC & Chem 7: 07/08/24 05:29 07/09/24 14:42 Labs: Abnormal Lab Results - Last 24 Hours (Table) 07/09/24 Range/Units 14:42 Potassium 3.3 L (3.5-5.1) mmol/L Assessment and Plan Assessment: 1. Chest pain rule out acute coronary syndrome; first set of troponin unremarkable; CT of the chest completed which was negative for PE -currently resolved - cardiology team is following closely -CTA of the chest is negative for PE 2. GI symptoms of nausea decreased appetite and diarrhea. No abdominal pain. Possible gastric irritation versus reactive gastroenteritis. infection with C. difficile ruled out Abdominal pain; CT abdomen pelvis does not reveal any acute abdominal or pelvic process -- placed on Protonix 40 mg IV every 12 hours -- GI team consulted --DC Lomotil. Ordered Questran -Patient also with some dried blood in her urination with recent UTI. repeat urine analysis looks normal and bladder scan 3. Hyperlipidemia; Lipitor 40 mg nightly 4. Depression/anxiety; patient is currently on Remeron 15 mg p.o. nightly; takes Seroquel 25 mg twice daily; reports she usually takes Ativan at home -[facility]s up with [facility] 5. Constipation; Colace 100 mg daily, currently on hold 6. Anxiety -- Taper down Ativan 1 mg twice daily down to 0.5 mg twice daily. Add BuSpar --Racing thoughts and bedrooms, patient requests psych consult - -Add trazodone at bedtime DVT prophylaxis; SCDs. Subcutaneous heparin CODE STATUS; full code
[2024-07-09] MEDS: traZODone HCL 50 MG TAB PO SCH (21:19)
[2024-07-10 08:50] LABS: Magnesium 1.9 mg/dL (1.5-2.4); Potassium 3.6 mmol/L (3.5-5.5)
--- NOTE | 2024-07-10 13:21 | P.CN ---
Psychiatric Consult - . Consult date: 07/10/24 Consult:: 07/10/24 13:09 IDENTIFYING DATA: This patient is a 73-year-old female with history of anxiety REASON FOR REFERRAL: Psychiatry was consulted for racing thoughts and bad dreams HISTORY OF PRESENT ILLNESS: The patient presented to the hospital with abdominal pain. GI was consulted. Patient states she has been having a "rough time" directly related to high anxiety that impacts sleep. She states anxiety is high as when she wakes up and describes it as belly pain, energy throughout her whole body, and racing thoughts. She describes panic like symptoms that occur daily and last up to 1 hour. She states being fearful about having another panic attack and states this has been going on for many years. She does not feel like Remeron or Seroquel have been helpful as she has been on this for years. In addition to panic attacks, she describes generalized worries about many different things in addition to feeling on edge. She denied any depressive symptoms currently. She reports previously being on Ativan 1 mg twice daily for many years which was helpful however this was discontinued when she moved from [place] back to [facility] when her prescriber would not fill this med. Reports nightmares and occasional voices at nighttime. She did not take the trazodone last night that was offered, stating she wished to talk to technical proposal writer first. She states her bottle caser at [facility] is setting her up with an outpatient psychiatrist there for further medication management. At this time patient denies any suicidal or homical ideations, intent or plan. Patient denies any auditory, visual hallucinations and denies any paranoia or delusions. Patients admits to using no substances. PAST PSYCHIATRIC HISTORY: Patient has a a history of anxiety. Patient is currently prescribed Bodfish 25 mg twice daily, Remeron 15 mg at bedtime, BuSpar 10 mg 3 times daily, Ativan 0.5 mg twice daily. She has trialed several antidepressants including Prozac, Lexapro, Elavil, Zoloft, Cymbalta, Effexor. She reports 3-4 inpatient hospitalizations, most recent being "many years ago". Has a bottle caser at [facility] and reportedly is being set up to see an outpatient psychiatrist there soon as well. Patient denies any history of suicide attempts in the past. PAST MEDICAL HISTORY: Asthma, Chest Pain / Angina, Eye Disorder, Fibromyalgia, GERD/Reflux, Musculoskeletal Disorder, Neurologic Disorder, Osteoarthritis (OA), ALLERGIES: as per EMR. CHEMICAL DEPENDENCY HISTORY: as per HPI. FAMILY PSYCHIATRIC/SUBSTANCE USE HISTORY: Denies SOCIAL HISTORY: Patient was born and raised in [place]. She has a son and daughter however lives alone. She is on disability related to a prior injury. MENTAL STATUS EXAM: General Appearance: Patient appears to be stated age is alert, pleasant, and cooperative. Patient appears to have fair hygiene and grooming wearing hospital gown with fair eye contact. Behavior: Patient appears anxious and intermittently tearful Speech: Patient's speech is fluent and nonpressured. Mood/Affect: Patient reports their mood is "anxious", affect is congruent Suicidality/Homicidality: Patient denies having any suicidal or homicidal ideation intent or plan. Perceptions: Patient denies any visual hallucinations and denies any auditory hallucinations Though content/process: There is no evidence of any delusional thought content and thought process is linear and goal-directed. Memory and concentration: AOX3, grossly intact for the purposes of this session. Can spell "WORLD" backwards Judgment and insight: Fair IMPRESSIONS: Generalized anxiety disorder with panic attacks PLAN: -At this time patient DOES NOT meet criteria for inpatient psychiatric admission. -Would recommend the following medication changes/additions: Will start Pamelor 25 mg at bedtime for anxiety/sleep, stop Seroquel 25 mg twice daily, stop trazodone 50 mg HS (patient states she never took this medication even though was offered), decrease Remeron to 7.5 mg at bedtime for sleep/appetite/mood, increase BuSpar to 20 mg twice daily. Will continue to monitor patient closely, ideally for at least 1 day, given the medication adjustments today -Patient follows with [facility] and has a bottle caser there who reportedly is setting up an outpatient psychiatrist appointment soon -Communicated plan to patient's nurse -Will continue to follow along -Please contact with any questions.
[2024-07-10] MEDS: POTASSIUM CHLORIDE ER 20 MEQ TAB.ER PO STA (15:42)
[2024-07-10] MEDS: PROCHLORPERAZINE INJ 10 MG/2 ML VIAL IVP PRN (15:42)
[2024-07-10] MEDS: NORTRIPTYLINE 25 MG CAP PO SCH (20:27)
[2024-07-10] MEDS: busPIRone HCl 10 MG TAB PO SCH (20:27)
[2024-07-10] MEDS: MIRTAZAPINE 15 MG TAB PO SCH (20:28)
--- NOTE | 2024-07-10 21:35 | P.PN ---
Subjective 73-year-old female present to the emergency department with concerns for abdominal problems. Onset of symptoms was around 4 this morning. Patient has had nausea and vomited around 2 or 3 times. Patient feels dry. Patient did have a couple episodes of diarrhea. Patient has diffuse abdominal discomfort, mostly epigastric. Patient also has some right-sided chest discomfort. Patient states she may feel a little bit short of breath. - EKG reveals sinus bradycardia with no signs of acute ischemia - Chest CTA: Negative for pulmonary embolism - CT abdomen pelvis: Negative for acute process - Laboratory data: WBC 8.2. Hemoglobin 13.1. Platelet count 231. Sodium 141. Potassium 4.0. BUN 11. Creatinine 0.80. Troponin negative x 3. - Current home cardiac medications include Lipitor 40 mg at night, aspirin 81 mg daily, metoprolol succinate 12.5 mg daily - Most recent echocardiogram obtained in May 2024 revealed ejection fraction 60 to 65% with no obvious regional wall motion abnormalities or valvular dysfunction - Cardiac catheterization history: No previous cardiac catheterization records available for review. However patient used to follow in the office in 2019 and documentation from cardiology office states that patient had a heart cath in 2017 without evidence of obstructive CAD. -Patient has been evaluated by cardiology; chest/abdominal pain is deemed related to GI; patient has been placed on Protonix 40 mg IV every 12 hours; patient reports abdominal pain and nausea claiming she is not ready for discharge -Will continue with IV Protonix for another 24 hours with discharge tomorrow morning 07/06/2024 Patient remains hemodynamically stable; has been cleared by cardiology for discharge; has been on IV Protonix for past 48 hours -Patient reports excessive anxiety; claims she has been evaluated by [facility] and they have refused to give her any Ativan; patient requesting to be discharged on Ativan; claims she is not able to care for self at home and it is requesting to consult with case management/INDUSTRIAL ENG for discharge resources; patient wants to be evaluated by PT/OT and possibly discharge to skilled rehab Case management has been consulted; discharge once arrangements are made 07/07 Patient still complaining from nausea, no vomiting. She cannot tolerate clear liquid diet No abdominal pain Patient reports few bouts of small loose bowel movement. C. difficile is requested However no fever, no leukocytosis. On admission CT of the abdomen and pelvis was negative for acute process. Will CT of the chest showing no pulmonary embolism Patient states recently she was treated for UTI, she feels a little bit abnormality in her urine but no overt symptoms. She complains mainly of a decline in the beginning of his urination which is kind of unusual for her there fore we are going to recheck urine analysis and check a bladder scan In the meantime patient kept on IV Protonix and normal saline at 75 mL/h Purchasing Engineer: The patient for chest pain. Patient currently denies any chest pain or significant shortness of breath 07/08 Patient still not eating well No significant abdominal pain or tenderness. She is having watery bowel movement but no small amount. C. difficile checked and was negative. She is on normal sinus 75 mL/h She is on Lomotil as needed with no benefit. We going to discontinue Lomotil . Patient fully awake and oriented. Patient states that she moved recently to [place] and she was taking Ativan 1 mg twice daily. She told me she went to her new PCP Dr. Bah who declined to prescribe her more Ativan. I checked labs with our pharmacy, it looks like her last prescription of Ativan was 20 tablets for 10 days last May from Dr. Hyde Currently patient is getting Ativan 1 mg twice daily. I explained the risk and benefits of this medication. Patient states she takes Ativan for anxiety. I told her the risk of this medication more than benefit than benefit I recommended we taper it down. she agrees and I lowered Ativan to 0.5 twice daily. At the same time I added BuSpar 10 mg 3 times daily Since most recent GI team. repeat urine analysis looks normal 07/09 Patient diarrhea is improving, she has 1 bowel movement today. She is on Questran We will check tomorrow if still has diarrhea we will add Imodium. No abdominal pain Patient evaluated by GI team most likely patient has irritable bowel syndrome. GI team cleared her for discharge Blood potassium and magnesium replaced Patient clinically stable for discharge however she was complaining from racing thoughts and bad dreams and requested psych consult. Psychiatry team are consulted Possible discharge in 24 to 48 hours if she keeps improvement. However her mood looks better today therefore we are going to add trazodone to help her with these thoughts at bedtime 07/10 Patient has no bowel movement since yesterday, she tolerates diet well, no abdominal pain or tenderness. We lowered Questran twice daily down to once daily Patient was feeling anxious with racing thoughts and bad dreams, [facility] consult was requested for added Remeron, increase BuSpar to 20 mg twice daily and put the patient on nortriptyline 25 mg at bedtime will disc ontinue trazodone. However patient declined trazodone yesterday. Patient will be monitored for over 1 day. Psychiatric team recommendation Possible discharge tomorrow. The plan of care discussed with the patient and she is agreeable Objective - Vital Signs Vital signs: Vital Signs Temp 98.6 F 07/10/24 14:19 Pulse 61 07/10/24 14:19 Resp 15 07/10/24 14:19 BP 127/68 07/10/24 14:19 Pulse Ox 98 07/10/24 14:19 FiO2 Intake & Output 07/09/24 07/10/24 07/10/24 18:59 06:59 18:59 Intake Total 960 10 Balance 960 10 Intake: IV 10 Invasive Line 2 10 Oral 960 0 Other: Voiding Method Bedside Commode Bedside Commode # Voids 3 3 2 - Exam GENERAL: The patient is alert and oriented x3, not in any acute distress. Well developed, well nourished. HEENT: Pupils are round and equally reacting to light. EOMI. No scleral icterus. No conjunctival pallor. Normocephalic, atraumatic. No pharyngeal erythema. No thyromegaly. CARDIOVASCULAR: S1 and S2 present. No murmurs, rubs, or gallops. PULMONARY: Chest is clear to auscultation, no wheezing , no crackles. ABDOMEN: Soft, nontender, nondistended, normoactive bowel sounds. No palpable organomegaly. MUSCULOSKELETAL: No joint swelling or deformity. EXTREMITIES: No cyanosis, clubbing, or pedal edema. NEUROLOGICAL: Gross neurological examination did not reveal any focal deficits. SKIN: No rashes. no petechiae. - Labs CBC & Chem 7: 07/08/24 05:29 07/10/24 06:18 Assessment and Plan Assessment: 1. Chest pain rule out acute coronary syndrome; first set of troponin unremarkable; CT of the chest completed which was negative for PE -currently resolved - cardiology team is following closely -CTA of the chest is negative for PE 2. GI symptoms of nausea decreased appetite and diarrhea. No abdominal pain. Possible gastric irritation versus reactive gastroenteritis. infection with C. difficile ruled out Abdominal pain; CT abdomen pelvis does not reveal any acute abdominal or pelvic process -- placed on Protonix 40 mg IV every 12 hours -- GI team consulted --YARELI Raya. Ordered Questran -Patient also with some dried blood in her urination with recent UTI. repeat urine analysis looks normal and bladder scan 3. Hyperlipidemia; Lipitor 40 mg nightly 4. Depression/anxiety; patient is currently on Remeron 15 mg p.o. nightly; takes Seroquel 25 mg twice daily; reports she usually takes Ativan at home -Follows up with [facility] 5. Constipation; Colace 100 mg daily, currently on hold 6. Anxiety -- Taper down Ativan 1 mg twice daily down to 0.5 mg twice daily. Add BuSpar --Racing thoughts and bedrooms, patient requests psych consult - -Patient was evaluated by psychiatrist and continued on room air on, BuSpar and nortriptyline DVT prophylaxis; SCDs. Subcutaneous heparin CODE STATUS; full code
[2024-07-11 07:27] VITALS: BP 155/74; PULSE 75; RESP 17; TEMP 98.8
[2024-07-11] MEDS: CHOLESTYRAMINE (WITH SUGAR) 4 GM PACKET PO SCH (08:30)
--- NOTE | 2024-07-11 12:58 | P.PN ---
Progress Note - Text Progress Note Date: 07/11/24 IDENTIFYING DATA: Patient is a 73-year-old female, history of anxiety and living alone REASON FOR CONSULT: Racing thoughts and bad dreams INTERVAL HISTORY: Patient seen and evaluated. She reports sleeping better overnight, sleeping roughly 6 hours however woke up around 2 AM and has been up since. She states feeling better overall today however is still experiencing racing thoughts throughout the day. Coping skills were discussed with the patient and she was encouraged to utilize journaling and breathing to help with excess anxiety. She states Ativan being very effective for anxiety and psychoeducation was provided regarding the risks with taking this medication long-term with safer alternative medications for anxiety. She states Vistaril was not helpful in the past or clonidine. Patient encouraged to continue to take her psychotropic medications as able to take some time to fully kick in. She denied any suicidal ideations, homicidal ideations or auditory/visual hallucinations today. She denied any adverse effects. MENTAL STATUS EXAM: General Appearance: Patient appears to be stated age. Patient appears to have fair hygiene and grooming wearing hospital gown with good eye contact. Behavior: Patient is calmly lying in bed without any agitated behavior. Speech: Speech is normal rate, volume and tone Mood/Affect: Mood is "anxious" and affect is blunted but reactive Suicidality/Homicidality: Patient denies any suicidal or homicidal ideations Perceptions: There are no perceptual abnormalities Though content/process: There is no evidence of delusional thoughts, thought process linear Judgment and insight: Fair IMPRESSIONS: Generalized anxiety disorder with panic attacks PLAN: -At this time patient DOES NOT meet criteria for inpatient psychiatric admission. -Would recommend the following medication changes/additions: Continue Pamelor 25 mg at bedtime for anxiety/sleep, Remeron 7.5 mg at bedtime for sleep/appetite/mood, BuSpar 20 mg twice daily. Seroquel 25 mg twice daily and trazodone 50 mg at bedtime discontinued yesterday. Patient to follow-up with [facility] outpatient for further medication adjustments -Psychiatry will sign off at this time -Please contact with any questions.
--- NOTE | 2024-07-12 00:28 | P.DS ---
Providers Date of admission: 07/04/24 14:33 Attending physician: Joel Hyde MD Consults: 07/04/24 17:44 Consult Physician Routine Consulting Provider: Jignesh Celaya Consult Reason/Comments: Chest pain Do you want consulting provider notified?: Yes, Notify in am 07/09/24 14:30 Consult Physician Routine Consulting Provider: Reynaldo Patel Consult Reason/Comments: racing thoughts and bad dreams, pt wants to see psych Do you want consulting provider notified?: Yes Primary care physician: [facility] Course: Diagnoses: 1. Chest pain rul . Cleared by associate professor of biblical studies,CTA of the chest is negative for PE. Resolved 2. GI symptoms of nausea decreased appetite and diarrhea. Thought secondary to irritable bowel syndrome 3. Hyperlipidemia; 4. Depression/anxiety; evaluated by psychiatrist, clinically stable 5. Constipation; Colace 100 mg daily, currently on hold 6. Benzodiazepine dependence. Mild treated per psychiatrist. Patient counseled on this medication avoided as risk more than benefit. No overt withdrawal symptoms Hospital course: 73-year-old female present to the emergency department with concerns for abdominal problems. However there was concerned patient has cardiac chest pain on admission and associate professor of biblical studies was consulted. Workup was unremarkable and patient was cleared by associate professor of biblical studies. Also CTA of the chest was negative for acute process. Patient also had ongoing abdominal symptoms and she was treated with IV hydration and symptomatic treatment and usual interval improvement. Her main concern was diarrhea which was stopped after IV Questran. C. difficile was negative. GI team evaluated the patient and cleared her for discharge. Over the last 2 days her diarrhea stopped, prescription for Questran lowered to once a day as needed. Also she takes Colace for constipation. Currently she does not need any And patient was counseled to follow-up with Dr. Woodruff as an outpatient and she agrees. Prior to discharge patient was requesting to be an Ativan claiming that she went to her PCP with decline prescribed to her. Also patient was complaining from racing thoughts and bad dreams. Psychiatrist evaluated her monitor her for 2 days and she did adjusted her medication to increase BuSpar 20 mg, nortriptyline 25 mg at bedtime and Remeron 7.5 mg at bedtime. Prescription provided for this medication for the patient upon discharge. Seroquel and trazodone were recommended to be discontinued and she agrees. On the day of discharge she is pleasant sitting up in bed, denies any other complaint. Stating that she is ready to go home. Patient was cleared for discharge by all consultants including associate professor of biblical studies, GI and psychiatrist Problems and management plan were discussed with the patient and he verbalized understanding and acceptance Patient was found stable and can be discharged home in guarded prognosis however he needs follow-up as an outpatient. Patient was instructed to follow up with PCP Dr. Means within one week and patient agrees Also patient was instructed to follow-up with [facility]. Also with associate professor of biblical studies Dr. Soler in 1 to [address] after discharge[address] With Dr. Woodruff GI service in 2 weeks Physical exam Gen: patient is a AAOx3, no distress CVS: S1-S2, RRR, no murmur Lungs: B/L CTA, no wheezing Abdomen: soft, no distention, no tenderness, positive bowel sounds Extremity: no leg edema or induration Time spent more than 35 minutes Patient Condition at Discharge: Fair Plan - Discharge Summary Discharge Rx Participant: No New Discharge Prescriptions: New Cholestyramine (with Sugar) [Questran Packet] 4 gm PO DAILY@1000 PRN #30 packet PRN Reason: Diarrhea busPIRone HCl [Buspar] 20 mg PO BID #120 tab Mirtazapine 7.5 mg PO HS #30 tab Nortriptyline [Pamelor] 25 mg PO HS #30 cap Continue Aspirin 81 mg PO DAILY tab Ondansetron Odt [Zofran ODT] 4 mg PO DAILY PRN PRN Reason: Nausea Pantoprazole Sodium [Protonix] 40 mg PO DAILY Atorvastatin [Lipitor] 40 mg PO HS 30 Days #30 tab Discontinued Docusate [Colace] 100 mg PO DAILY PRN PRN Reason: Constipation Ibuprofen [Motrin] 600 mg PO TID PRN PRN Reason: Pain Mirtazapine [Remeron] 15 mg PO HS QUEtiapine [SEROquel] 25 mg PO BID Metoprolol Succinate (ER) [Toprol XL] 12.5 mg PO DAILY Discharge Medication List Ondansetron Odt [Zofran ODT] 4 mg PO DAILY PRN 06/16/24 [History] Pantoprazole Sodium [Protonix] 40 mg PO DAILY 06/16/24 [History] Aspirin 81 mg PO DAILY tab 06/22/24 [Rx] Atorvastatin [Lipitor] 40 mg PO HS 30 Days #30 tab 06/22/24 [Rx] Cholestyramine (with Sugar) [Questran Packet] 4 gm PO DAILY@1000 PRN #30 packet 07/11/24 [Rx] Mirtazapine 7.5 mg PO HS #30 tab 07/11/24 [Rx] Nortriptyline [Pamelor] 25 mg PO HS #30 cap 07/11/24 [Rx] busPIRone HCl [Buspar] 20 mg PO BID #120 tab 07/11/24 [Rx] Follow up Appointment(s)/Referral(s): [facility] [Outside] - As Needed Parveen Soler MD [Medical Doctor] - 2 Weeks (office will call patiemt with appointment ) Solange Celaya MD [STAFF PHYSICIAN] - 2 Weeks (GI) Brandie Child MD [Primary Care Provider] - 1-2 days Patient Instructions/Handouts: Acute Nausea and Vomiting (DC) Discharge/Stand Alone Forms: [facility] Shelters, Who Do I Call?, Community Resources, Area PCPs Discharge Disposition: HOME SELF-CARE
== END 2024-07-11 15:40 | disposition home or self-care (01) | DRG 392 ==
LOC: EC 12:02 → OBSVTOIN 14:33 → 6NMEDSUR 14:33
PROVIDERS: ADMIT Internal Medicine; ATTEND Internal Medicine
DX: K58.1 Irritable bowel syndrome with constipation (principal); F13.20 Sedative, hypnotic or anxiolytic dependence, uncomplicated; N39.0 Urinary tract infection, site not specified; E78.5 Hyperlipidemia, unspecified; F32.A Depression, unspecified; F40.240 Claustrophobia; F41.0 Panic disorder [episodic paroxysmal anxiety]; F41.1 Generalized anxiety disorder; F51.5 Nightmare disorder; G35 Multiple sclerosis; M19.90 Unspecified osteoarthritis, unspecified site; J45.909 Unspecified asthma, uncomplicated; K29.70 Gastritis, unspecified, without bleeding; M79.7 Fibromyalgia; M81.0 Age-related osteoporosis without current pathological fracture; G47.00 Insomnia, unspecified; H57.9 Unspecified disorder of eye and adnexa; K21.9 Gastro-esophageal reflux disease without esophagitis; L40.1 Generalized pustular psoriasis; M47.9 Spondylosis, unspecified; N60.02 Solitary cyst of left breast; R91.8 Other nonspecific abnormal finding of lung field; Z82.49 Family history of ischemic heart disease and other diseases of the circulatory system; Z71.51 Drug abuse counseling and surveillance of drug abuser; Z79.82 Long term (current) use of aspirin; Z79.899 Other long term (current) drug therapy; Z87.891 Personal history of nicotine dependence; Z88.4 Allergy status to anesthetic agent; Z88.5 Allergy status to narcotic agent; Z88.0 Allergy status to penicillin
CPT/HCPCS: 36415; 71275; 74177; 80048; 80053; 80076; 81003; 82150; 83690; 83735; 84132; 84484; 85025; 85610; 85730; 87324; 93005; 96361; 96374; 96375; 99285

== ENCOUNTER 2024-07-13 13:07 | Emergency (ER) | payer MEDICARE, OTHER ==
[2024-07-13 13:35] VITALS: TEMP 99.2
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
[2024-07-13] MEDS: PANTOPRAZOLE 40 MG TABLET PO STA (21:56)
[2024-07-13] MEDS: LORazepam 1 MG TAB PO STA (21:56)
[2024-07-13] MEDS: ONDANSETRON ODT 4 MG TAB PO STA (21:56)
[2024-07-13] MEDS: KETOROLAC 15 MG/ML 1 ML VIAL IM STA (21:57)
[2024-07-14 00:50] LABS: Basophils # (A) 0.1 k/uL (0-0.2); Basophils % (A) 1 %; Eosinophils # (A) 0.1 k/uL (0-0.7); Eosinophils % (A) 1 %; HCT 41.6 % (34.0-46.0); HGB 13.7 gm/dL (11.4-16.0); Lymphocytes # (A) 4.8 k/uL (1.0-4.8); Lymphocytes % (A) 46 %; MCH 31.7 pg (25.0-35.0); MCHC 32.9 g/dL (31.0-37.0); MCV 96.5 fL (80.0-100.0); Mean Platelet Volume 7.8; Monocytes # (A) 0.9 k/uL (0-1.0); Monocytes % (A) 8 %; Neutrophils # (A) 4.2 k/uL (1.3-7.7); Neutrophils % (A) 41 %; Platelet Count 221 k/uL (150-450); RBC 4.31 m/uL (3.80-5.40); RDW 13.8 % (11.5-15.5); WBC 10.4 k/uL (3.8-10.6)
[2024-07-14 01:00] LABS: ALT 22 U/L (4-34); AST 28 U/L (14-36); African American GFR (CKD) >90 (>60 ml/min/1.73 sqM); Albumin 4.5 g/dL (3.5-5.0); Alkaline Phosphatase 80 U/L (38-126); Anion Gap 8 mmol/L; Blood Urea Nitrogen 15 mg/dL (7-17); Calcium 9.5 mg/dL (8.4-10.2); Carbon Dioxide 25 mmol/L (22-30); Chloride 105 mmol/L (98-107); Glucose 101 mg/dL (74-99); Non-African American GFR(CKD) 88 (>60 ml/min/1.73 sqM); Potassium 3.6 mmol/L (3.5-5.1); Sodium 138 mmol/L (137-145); Total Bilirubin 1.2 mg/dL (0.2-1.3); Total Protein 7.2 g/dL (6.3-8.2)
[2024-07-14 01:07] VITALS: RESP 16
[2024-07-14] MEDS: ATORVASTATIN 40 MG TAB PO SCH (01:17)
[2024-07-14] MEDS: MIRTAZAPINE 15 MG TAB PO SCH (01:17)
[2024-07-14] MEDS: busPIRone HCl 10 MG TAB PO SCH (01:19)
[2024-07-14] MEDS: NORTRIPTYLINE 25 MG CAP PO SCH (01:19)
[2024-07-14] MEDS: LORazepam 1 MG TAB PO PRN (01:28)
[2024-07-14 02:05] LABS: Amorphous Sediment,Urine Rare /hpf; Appearance,Urine Clear (Clear); Bilirubin,Urine Negative (Negative); Blood,Urine Negative (Negative); Color,Urine Yellow; Glucose,Urine (UA) Negative (Negative); Hyaline Casts,Urine 4 /lpf (0-2); Ketones,Urine Trace (Negative); Leukocyte Esterase,Urine Trace (Negative); Mucus,Urine Moderate /hpf; Nitrite,Urine Negative (Negative); Protein,Urine Negative (Negative); RBC,Urine <1 /hpf (0-5); Specific Gravity,Urine 1.013 (1.001-1.035); Squamous Epithelial Cell,Urine 1 /hpf (0-4); Urobilinogen,Urine <2.0 mg/dL (<2.0); WBC,Urine 6 /hpf (0-5)
[2024-07-14 02:16] LABS: Amphetamine Screen,Urine Not Detected (NotDetected); Barbiturate Screen,Urine Not Detected (NotDetected); Benzodiazepines Screen,Urine Detected (NotDetected); Cocaine Screen,Urine Not Detected (NotDetected); Methadone Screen, Urine Not Detected (NotDetected); Opiate Screen,Urine Not Detected (NotDetected); Phencyclidine Screen,Urine Not Detected (NotDetected); Tricyclic Antidepressant,Urine Detected (NotDetected); Urn Cannabinoid Scrn Detected (NotDetected)
[2024-07-14 02:17] LABS: Oxycodone Screen, Urine Not Detected (NotDetected)
[2024-07-14] MEDS: KETOROLAC 15 MG/ML 1 ML VIAL IVP SCH (04:04)
[2024-07-14] MEDS: PANTOPRAZOLE 40 MG TABLET PO SCH (09:05)
[2024-07-14] MEDS: ASPIRIN 81 MG PO SCH (09:05)
[2024-07-14] MEDS: ONDANSETRON ODT 4 MG TAB PO PRN (09:19)
[2024-07-14] MEDS ORDERED: CHOLESTYRAMINE (WITH SUGAR) 4 GM PACKET PO PRN (10:00)
[2024-07-14 11:40] VITALS: BP 107/61; PULSE 96
== END 2024-07-14 11:46 ==
LOC: EC 13:07
DX: F41.9 Anxiety disorder, unspecified (principal); F32.A Depression, unspecified; F17.200 Nicotine dependence, unspecified, uncomplicated; Z77.120 Contact with and (suspected) exposure to mold (toxic); Z88.5 Allergy status to narcotic agent; Z88.8 Allergy status to other drugs, medicaments and biological substances; Z91.041 Radiographic dye allergy status; Z88.0 Allergy status to penicillin; Z88.1 Allergy status to other antibiotic agents
CPT/HCPCS: 82075; 99285; 96372; 96374; 96376; J1885; 36415; 80053; 80306; 81001; 85025; 87635

== ENCOUNTER 2024-07-26 12:43 | Observation (INO) | payer MEDICARE, OTHER ==
--- NOTE | 2024-07-26 15:05 | XR ---
EXAMINATION TYPE: XR chest 2V DATE OF EXAM: 07/26/2024 2:35 PM COMPARISON: Chest radiographs from 06/16/2024. CLINICAL INDICATION: Female, 73 years old with history of Chest Pain; TECHNIQUE: XR chest 2V Frontal and lateral views of the chest. FINDINGS: Lungs/Pleura: There is no evidence of pleural effusion, focal consolidation, or pneumothorax. Pulmonary vascularity: Unremarkable. Heart/mediastinum: Cardiomediastinal silhouette is unremarkable. Musculoskeletal: No acute osseous pathology. IMPRESSION: No acute cardiopulmonary disease/process. [facility] Ritchie Love, , 07/26/2024 3:03 PM
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
[2024-07-26] MEDS: ASPIRIN 81 MG PO STA (19:26)
[2024-07-26 20:23] LABS: Basophils # (A) 0.1 k/uL (0-0.2); Basophils % (A) 1 %; Eosinophils # (A) 0.1 k/uL (0-0.7); Eosinophils % (A) 1 %; HCT 41.4 % (34.0-46.0); HGB 14.2 gm/dL (11.4-16.0); Lymphocytes # (A) 3.6 k/uL (1.0-4.8); Lymphocytes % (A) 37 %; MCH 33.2 pg (25.0-35.0); MCHC 34.3 g/dL (31.0-37.0); MCV 96.8 fL (80.0-100.0); Mean Platelet Volume 7.2; Monocytes # (A) 0.6 k/uL (0-1.0); Monocytes % (A) 6 %; Neutrophils # (A) 5.2 k/uL (1.3-7.7); Neutrophils % (A) 54 %; Platelet Count 253 k/uL (150-450); RBC 4.27 m/uL (3.80-5.40); RDW 13.4 % (11.5-15.5); WBC 9.7 k/uL (3.8-10.6)
[2024-07-26] MEDS: KETOROLAC 15 MG/ML 1 ML VIAL IVP STA (20:27)
[2024-07-26] MEDS: LORazepam 2 MG/ML INJ IV STA (20:32)
[2024-07-26] MEDS: ONDANSETRON 4 MG/2 ML VIAL IVP STA (20:32)
[2024-07-26 20:34] LABS: ALT 22 U/L (4-34); AST 28 U/L (14-36); African American GFR (CKD) >90 (>60 ml/min/1.73 sqM); Albumin 4.7 g/dL (3.5-5.0); Alkaline Phosphatase 92 U/L (38-126); Anion Gap 11 mmol/L; Blood Urea Nitrogen 19 mg/dL (7-17); Calcium 9.6 mg/dL (8.4-10.2); Carbon Dioxide 22 mmol/L (22-30); Chloride 104 mmol/L (98-107); Glucose 78 mg/dL (74-99); Magnesium 2.1 mg/dL (1.6-2.3); Non-African American GFR(CKD) 81 (>60 ml/min/1.73 sqM); Potassium 4.2 mmol/L (3.5-5.1); Sodium 137 mmol/L (137-145); Total Bilirubin 0.9 mg/dL (0.2-1.3); Total Protein 7.5 g/dL (6.3-8.2)
[2024-07-26 20:35] LABS: Partial Thromboplastin Time 22.6 sec (22.0-30.0); Prothrombin Time 11.1 sec (10.0-12.5)
[2024-07-26] MEDS ORDERED: NITROGLYCERIN SL TABS 0.4 MG TAB SUBLINGUAL PRN (20:47)
[2024-07-27] MEDS: LORazepam 0.5 MG TAB PO PRN (01:07)
[2024-07-27] MEDS: ONDANSETRON 4 MG/2 ML VIAL IVP PRN (01:09)
[2024-07-27] MEDS: KETOROLAC 15 MG/ML 1 ML VIAL IVP PRN (01:25)
[2024-07-27] MEDS: ASPIRIN 325 MG TAB PO SCH (08:42)
[2024-07-27 10:01] LABS: Chol/HDL Ratio 4.02 Ratio; LDL Cholesterol,Calculated 82.1 mg/dL (0.0-131.0)
[2024-07-27] MEDS: PANTOPRAZOLE 40 MG TABLET PO STA (12:19)
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
[2024-07-27] MEDS: ATORVASTATIN 40 MG TAB PO SCH (20:46)
[2024-07-27] MEDS: busPIRone HCl 10 MG TAB PO SCH (20:46)
[2024-07-27] MEDS: NORTRIPTYLINE 25 MG CAP PO SCH (20:47)
[2024-07-27] MEDS: MIRTAZAPINE 15 MG TAB PO SCH (20:47)
[2024-07-28] MEDS ORDERED: DOBUTamine DRIP for NUC MED 500 MG in DEXTROSE/WATER 1 250ML.BAG IV PRN (05:00)
[2024-07-28] MEDS: PANTOPRAZOLE 40 MG TABLET PO SCH (05:25)
[2024-07-28] MEDS ORDERED: DOBUTamine DRIP for NUC MED 500 MG/250 ML BAG IV ONE (08:00)
[2024-07-28] MEDS: ASPIRIN 81 MG PO SCH (08:35)
--- NOTE | 2024-07-28 09:10 | CONS ---
CONSULTATION HISTORY OF PRESENT ILLNESS: Annette is a 73-year-old lady, who is admitted to the hospital with chest pain. She has complex and multiple medical problems, including multiple sclerosis, anxiety, depression, and comes in complaining of chest pain. She describes it as precordial chest pain, which at times radiated to her left arm. These symptoms have been going on for the last several months. The patient was admitted to hospital 2 weeks ago and was discharged home. She had an echocardiogram in May that was structurally normal. At the time of my evaluation this morning, she is pain-free and hemodynamically stable. An EKG shows sinus rhythm, normal axis, normal intervals. Three sets of troponins are negative. PAST MEDICAL HISTORY: Significant for dyslipidemia. CURRENT MEDICATIONS: Include: 1. Protonix 40 daily. 2. Lipitor 40 daily. 3. BuSpar. 4. Aspirin. 5. Zofran. ALLERGIES: She has multiple drug allergies. They are charted and I reviewed them. REVIEW OF SYSTEMS: review of systems has been performed. Pertinents are as documented. PHYSICAL EXAMINATION: GENERAL: Comfortable at rest. VITAL SIGNS: Stable. NECK: There is no jugular venous distention. Carotid upstroke is normal. There is no bruit. CHEST: Reveals good air entry bilaterally. HEART: Reveals first and second heart sounds. No gallop. No murmur. No rub. ABDOMEN: Soft, nontender. EXTREMITIES: Did not reveal any edema. Peripheral pulses are felt. ASSESSMENT: Precordial chest pain. PLAN: The patient will undergo a dobutamine stress echo tomorrow morning. If this is negative, she can be discharged home. MMODL / IJN: [id number] /
[2024-07-28] MEDS ORDERED: ATROPINE SULFATE 0.1 MG/ML 10ML SYRINGE ONE (12:50)
[2024-07-28] MEDS ORDERED: METOPROLOL TARTRATE 5 MG/5 ML VIAL IVP ONE (13:10)
--- NOTE | 2024-07-28 13:34 | P.PN ---
Subjective HISTORY OF PRESENT ILLNESS: This is a 73-year-old female who presented to the hospital yesterday with chest pain. Patient examined this morning at the bedside. Patient currently denies chest pain or pressure. She denies shortness of breath. Vital signs are stable. Echocardiogram performed last month revealing preserved LV systolic function. PHYSICAL EXAM: VITAL SIGNS: Reviewed. GENERAL: Well-developed in no acute distress. NECK: Supple. No JVD or thyromegaly LUNGS: Respirations even and unlabored. Lungs essentially clear to auscultation bilaterally. HEART: Regular rate and rhythm. S1 and S2 heard. EXTREMITIES: Normal range of motion. No clubbing or cyanosis. Peripheral pulses intact. No lower extremity edema ASSESSMENT: Chest pain, ACS ruled out History of cardiac catheterization in 2017 without obstructive CAD, per card iology office records Hyperlipidemia History of anxiety History of multiple sclerosis History of depression Former nicotine dependence PLAN: Continue current cardiac medications Patient to undergo dobutamine stress test today If negative, she may be discharged home from a cardiac standpoint Nurse practitioner note has been reviewed by physician. Signing provider agrees with the documented findings, assessment, and plan of care documented by FELLER BUNCHER OPERATOR as a scribe. Objective - Vital Signs Vital signs: Vital Signs Temp 98.9 F 07/28/24 07:00 Pulse 82 07/28/24 07:00 Resp 15 07/28/24 07:00 BP 134/63 07/28/24 07:00 Pulse Ox 98 07/28/24 07:00 FiO2 Intake & Output 07/27/24 07/28/24 07/28/24 18:59 06:59 18:59 Output Total 200 Balance -200 Output: Urine 200 Other: Voiding Method External Catheter External Catheter # Voids 2 - Labs CBC & Chem 7: 07/26/24 19:58 07/26/24 19:58
--- NOTE | 2024-07-28 14:51 | P.PN ---
Subjective Progress Note Date: 07/28/24 patient is 73-year-old lady with past medical history significant for MS, anxiety, depression who presented the ER for chest pain. Patient stated that she was all right 4 days back when started noticing chest pain that was central in location, pressure-like, rating to her left arm, no aggravating or relieving factor associated chest pain. There is no complaint of shortness of breath. There was no complaint of palpitation. There is no orthopnea or PND. Patient also was feeling more weaker than her normal self. Because of chest pain, patient was brought to the ER Initial lab work done in the ER showed WBC 9.7, hemoglobin 14.2, platelet count 253, sodium 137 potassium 4.2, BUN 19, creatinine 0.75, troponin 0.012 EKG done in the ER showed heart rate of 103, no ST segment elevation or depression seen, no T-wave inversions seen. Chest x-ray done in the ER showed no acute cardiopulmonary process Patient admitted to internal medicine service 07/28. Patient seen and examined. Currently n.p.o. going for stress test today REVIEW OF SYSTEMS: CONSTITUTIONAL: No fever, no malaise,. CARDIOVASCULAR: No chest pain, no palpitations, no syncope. PULMONARY: No shortness of breath, no cough, GASTROINTESTINAL: No diarrhea, no nausea, no vomiting, no abdominal pain. NEUROLOGICAL: No headaches, no weakness, PHYSICAL EXAMINATION: GENERAL: The patient is alert and oriented x3, not in any acute distress. Well developed, well nourished. HEENT: Pupils are round and equally reacting to light. EOMI. No scleral icterus. No conjunctival pallor. Normocephalic, atraumatic. No pharyngeal erythema. No thyromegaly. CARDIOVASCULAR: S1 and S2 present. No murmurs, rubs, or gallops. PULMONARY: Chest is clear to auscultation, no wheezing or crackles. ABDOMEN: Soft, nontender, nondistended, normoactive bowel sounds. No palpable organomegaly. MUSCULOSKELETAL: No joint swelling or deformity. EXTREMITIES: No cyanosis, clubbing, or pedal edema. NEUROLOGICAL: Gross neurological examination did not reveal any focal deficits. SKIN: No rashes. Assessment and plan Chest pain, rule out acute coronary syndrome Hyperlipidemia Depression Anxiety History of MS Monitor vital signs Monitor CBC Monitor CMP Continue telemetry monitoring Ordered dobutamine stress echo Continue home meds PT OT consulted Cardiology following Labs and medication were reviewed.. Continue same treatment. Continue with symptomatic treatment. Resume home medication. Monitor labs and vitals. DVT and GI prophylaxis. Further recommendations as per clinical course of the patient Dictation was produced using [employer] dictation software. please excuse any grammatical, word or spelling errors. Objective - Vital Signs Vital signs: Vital Signs Temp 98.5 F 07/28/24 14:30 Pulse 77 07/28/24 14:30 Resp 18 07/28/24 14:30 BP 154/83 07/28/24 14:30 Pulse Ox 98 07/28/24 14:30 FiO2 Intake & Output 07/27/24 07/28/24 07/28/24 18:59 06:59 18:59 Intake Total 118 Output Total 200 300 Balance -200 -182 Intake: Oral 118 Output: Urine 200 300 Other: Voiding Method External Catheter External Catheter # Voids 2 - Labs CBC & Chem 7: 07/26/24 19:58 07/26/24 19:58
[2024-07-28 23:39] LABS: Appearance,Urine Turbid (Clear); Bacteria,Urine Moderate /hpf; Bilirubin,Urine Negative (Negative); Blood,Urine Moderate (Negative); Budding Yeast,Urine Many /hpf; Color,Urine Yellow; Glucose,Urine (UA) Negative (Negative); Ketones,Urine Negative (Negative); Leukocyte Esterase,Urine Large (Negative); Mucus,Urine Many /hpf; Nitrite,Urine Positive (Negative); Protein,Urine 1+ (Negative); RBC,Urine 160 /hpf (0-5); Squamous Epithelial Cell,Urine 12 /hpf (0-4); Urobilinogen,Urine <2.0 mg/dL (<2.0); WBC,Urine >182 /hpf (0-5)
--- NOTE | 2024-07-29 08:02 | CA ---
Dobutamine Stress Echocardiogram Report Annette Bush Age: 73 Gender: F : 1950 Exam Date: 07/28/2024 12:45 Exam Location: [facility] Ordering Physician: Juani Zimmerman Referring Physician: [id number] Gaytan Weight Calculator: TAMMY, Technologist: Ht (in): 66 Wt (lb): 145 Procedure CPT: Indication: CP ICD-9 Codes: Rhythm: Patient History: Chest pain Cardiac Medications: Medications in past 24 hours: Contrast: Total Dose (mL): Stress Results Protocol: Dobutamine Peak Dose (???g/kg/min): 20 Duration (min:sec): Atropine:(mg) Target HR: 127 Double Product: [id number] Resting HR: 71 Resting BP: 187 / 109 Peak HR: 169 Peak BP: 189 / 68 Max Predicted HR: 149 113 % Max Predicted HR Stress Summary: BP Response: Reason for Termination: Target HR Cardiac Symptoms: NO SYMPTOMS ECG Analysis Resting EKG: Stress EKG: Arrhythmia: Echo Analysis Base Echo Analysis: Low Echo Anaylsis: Peak Echo Analysis: Recovery Echo: MEASUREMENTS (Male/Female) Normal Values CONCLUSIONS Normal electrocardiogram and echocardiogram with dobutamine Dr. Beto Irizarry MD (Electronically Signed) Final Date: 29 July 2024 08:01
[2024-07-29] MEDS: LEVOFLOXACIN 500MG-D5W PMX 500 MG in DEXTROSE/WATER 1 100ML.BAG IVPB SCH (11:13)
--- NOTE | 2024-07-29 12:26 | P.PN ---
Subjective HISTORY OF PRESENT ILLNESS: This is a 73-year-old female who presented to the hospital yesterday with chest pain. Patient examined this morning at the bedside. Patient currently denies chest pain or pressure. She denies shortness of breath. Vital signs are stable. Echocardiogram performed last month revealing preserved LV systolic function. 07/29/2024 Patient examined this morning at the bedside. Patient underwent dobutamine stress echo yesterday which was negative for ischemia. Patient currently denies chest pain or pressure. She denies shortness of breath. Vital signs are stable. PHYSICAL EXAM: VITAL SIGNS: Reviewed. GENERAL: Well-developed in no acute distress. NECK: Supple. No JVD or thyromegaly LUNGS: Respirations even and unlabored. Lungs essentially clear to auscultation bilaterally. HEART: Regular rate and rhythm. S1 and S2 heard. EXTREMITIES: Normal range of motion. No clubbing or cyanosis. Peripheral pulses intact. No lower extremity edema ASSESSMENT: Chest pain, ACS ruled out, status post dobutamine negative for ischemia History of cardiac catheterization in 2017 without obstructive CAD, per cardiol ogy office records Hyperlipidemia History of anxiety History of multiple sclerosis History of depression Former nicotine dependence PLAN: Continue current cardiac medications Patient is stable for discharge home today from a cardiac standpoint We will sign off. Please reconsult if needed. Nurse practitioner note has been reviewed by physician. Signing provider agrees with the documented findings, assessment, and plan of care documented by BRIQUETTE MACHINE OPERATOR as a scribe. Objective - Vital Signs Vital signs: Vital Signs Temp 98.3 F 07/29/24 07:30 Pulse 72 07/29/24 07:30 Resp 17 07/29/24 07:30 BP 131/77 07/29/24 07:30 Pulse Ox 98 07/29/24 07:30 FiO2 Intake & Output 07/28/24 07/29/24 07/29/24 18:59 06:59 18:59 Intake Total 118 Output Total 700 Balance -582 Intake: Oral 118 Output: Urine 700 Other: Voiding Method Bedside Commode Bedside Commode # Voids 2 - Labs CBC & Chem 7: 07/26/24 19:58 07/26/24 19:58 Labs: Abnormal Lab Results - Last 24 Hours (Table) 07/28/24 Range/Units 22:45 Urine Appearance Turbid H (Clear) Urine Protein 1+ H (Negative) Urine Blood Moderate H (Negative) Urine Nitrite Positive H (Negative) Ur Leukocyte Esterase Large H (Negative) Urine RBC 160 H (0-5) /hpf Urine WBC >182 H (0-5) /hpf Urine WBC Clumps Many H (None) /hpf Ur Squamous Epith Cells 12 H (0-4) /hpf Urine Bacteria Moderate H (None) /hpf Urine Mucus Many H (None) /hpf Urine Yeast (Budding) Many H (None) /hpf
--- NOTE | 2024-07-29 15:47 | P.PN ---
Subjective Progress Note Date: 07/29/24 patient is 73-year-old lady with past medical history significant for MS, anxiety, depression who presented the ER for chest pain. Patient stated that she was all right 4 days back when started noticing chest pain that was central in location, pressure-like, rating to her left arm, no aggravating or relieving factor associated chest pain. There is no complaint of shortness of breath. There was no complaint of palpitation. There is no orthopnea or PND. Patient also was feeling more weaker than her normal self. Because of chest pain, patient was brought to the ER Initial lab work done in the ER showed WBC 9.7, hemoglobin 14.2, platelet count 253, sodium 137 potassium 4.2, BUN 19, creatinine 0.75, troponin 0.012 EKG done in the ER showed heart rate of 103, no ST segment elevation or depression seen, no T-wave inversions seen. Chest x-ray done in the ER showed no acute cardiopulmonary process Patient admitted to internal medicine service 07/28. Patient seen and examined. Currently n.p.o. going for stress test today 07/29. Patient seen examined. Dobutamine stress echo negative for any ischemia. UA done was suspicious for UTI, started Levaquin. Complaining of lethargic and weakness REVIEW OF SYSTEMS: CONSTITUTIONAL: No fever, no malaise,. CARDIOVASCULAR: No chest pain, no palpitations, no syncope. PULMONARY: No shortness of breath, no cough, GASTROINTESTINAL: No diarrhea, no nausea, no vomiting, no abdominal pain. NEUROLOGICAL: No headaches, no weakness, PHYSICAL EXAMINATION: GENERAL: The patient is alert and oriented x3, not in any acute distress. Well developed, well nourished. HEENT: Pupils are round and equally reacting to light. EOMI. No scleral icterus. No conjunctival pallor. Normocephalic, atraumatic. No pharyngeal erythema. No thyromegaly. CARDIOVASCULAR: S1 and S2 present. No murmurs, rubs, or gallops. PULMONARY: Chest is clear to auscultation, no wheezing or crackles. ABDOMEN: Soft, nontender, nondistended, normoactive bowel sounds. No palpable organomegaly. MUSCULOSKELETAL: No joint swelling or deformity. EXTREMITIES: No cyanosis, clubbing, or pedal edema. NEUROLOGICAL: Gross neurological examination did not reveal any focal deficits. SKIN: No rashes. Assessment and plan Chest pain, rule out acute coronary syndrome Hyperlipidemia UTI Depression Anxiety History of MS Monitor vital signs Monitor CBC Monitor CMP Continue telemetry monitoring dobutamine stress echo was negative for ischemia Start IV Levaquin Continue home meds PT OT consulted Cardiology following Labs and medication were reviewed.. Continue same treatment. Continue with symptomatic treatment. Resume home medication. Monitor labs and vitals. DVT and GI prophylaxis. Further recommendations as per clinical course of the patient Dictation was produced using [employer] dictation software. please excuse any grammatical, word or spelling errors. Objective - Vital Signs Vital signs: Vital Signs Temp 98.3 F 07/29/24 07:30 Pulse 72 07/29/24 07:30 Resp 17 07/29/24 07:30 BP 131/77 07/29/24 07:30 Pulse Ox 98 07/29/24 07:30 FiO2 Intake & Output 07/28/24 07/29/24 07/29/24 18:59 06:59 18:59 Intake Total 118 Output Total 700 Balance -582 Intake: Oral 118 Output: Urine 700 Other: Voiding Method Bedside Commode # Voids 2 - Labs CBC & Chem 7: 07/26/24 19:58 07/26/24 19:58 Labs: Abnormal Lab Results - Last 24 Hours (Table) 07/28/24 Range/Units 22:45 Urine Appearance Turbid H (Clear) Urine Protein 1+ H (Negative) Urine Blood Moderate H (Negative) Urine Nitrite Positive H (Negative) Ur Leukocyte Esterase Large H (Negative) Urine RBC 160 H (0-5) /hpf Urine WBC >182 H (0-5) /hpf Urine WBC Clumps Many H (None) /hpf Ur Squamous Epith Cells 12 H (0-4) /hpf Urine Bacteria Moderate H (None) /hpf Urine Mucus Many H (None) /hpf Urine Yeast (Budding) Many H (None) /hpf
[2024-07-29 16:42] LABS: Basophils % (A) 1 %; Eosinophils # (A) 0.1 k/uL (0-0.7); Eosinophils % (A) 1 %; HGB 12.8 gm/dL (11.4-16.0); Lymphocytes # (A) 2.3 k/uL (1.0-4.8); Lymphocytes % (A) 29 %; MCH 32.8 pg (25.0-35.0); MCHC 33.6 g/dL (31.0-37.0); MCV 97.8 fL (80.0-100.0); Mean Platelet Volume 7.4; Monocytes # (A) 0.5 k/uL (0-1.0); Monocytes % (A) 7 %; Neutrophils # (A) 4.9 k/uL (1.3-7.7); Neutrophils % (A) 61 %; Platelet Count 229 k/uL (150-450); RBC 3.89 m/uL (3.80-5.40); RDW 13.2 % (11.5-15.5); WBC 8.1 k/uL (3.8-10.6)
[2024-07-29 16:53] LABS: ALT 16 U/L (4-34); AST 21 U/L (14-36); African American GFR (CKD) >90 (>60 ml/min/1.73 sqM); Albumin 4.1 g/dL (3.5-5.0); Albumin/Globulin Ratio 1.6; Alkaline Phosphatase 80 U/L (38-126); Anion Gap 10 mmol/L; Blood Urea Nitrogen 16 mg/dL (7-17); Calcium 9.3 mg/dL (8.4-10.2); Carbon Dioxide 23 mmol/L (22-30); Chloride 105 mmol/L (98-107); Globulin 2.6 g/dL; Glucose 85 mg/dL (74-99); Non-African American GFR(CKD) 82 (>60 ml/min/1.73 sqM); Potassium 3.6 mmol/L (3.5-5.1); Sodium 138 mmol/L (137-145); Total Bilirubin 0.7 mg/dL (0.2-1.3); Total Protein 6.7 g/dL (6.3-8.2)
[2024-07-29] MEDS: PANTOPRAZOLE 40 MG TABLET PO SCH (20:34)
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
[2024-07-30 09:10] LABS: Basophils # (A) 0.06 X 10*3/uL (0.00-0.10); Basophils % (A) 0.7 %; Eosinophils # (A) 0.19 X 10*3/uL (0.04-0.35); Eosinophils % (A) 2.4 %; HCT 34.6 % (37.2-46.3); HGB 11.8 g/dL (12.0-15.0); Lymphocytes # (A) 3.57 X 10*3/uL (0.90-5.00); Lymphocytes % (A) 44.3 %; MCH 32.3 pg (27.0-32.0); MCHC 34.1 g/dL (32.0-37.0); MCV 94.8 FL (80.0-97.0); Mean Platelet Volume 10.7 FL (9.5-12.2); Monocytes # (A) 0.89 X 10*3/uL (0.20-1.00); Monocytes % (A) 11.1 %; NRBC Per 100 WBC 0 X 10*3/uL (0.00-0.01); Neutrophils # (A) 3.32 X 10*3/uL (1.80-7.70); Neutrophils % (A) 41.3 %; Platelet Count 225 X 10*3/uL (140-440); RBC 3.65 X 10*6/uL (4.10-5.20); RDW 13.6 % (11.5-14.5); WBC 8.05 X 10*3/uL (4.50-10.00)
[2024-07-30 09:33] LABS: ALT 13 U/L (8-44); AST 15 U/L (13-35); Albumin 3.7 g/dL (3.8-4.9); Albumin/Globulin Ratio 1.61 Ratio (1.60-3.17); Alkaline Phosphatase 74 U/L (41-126); BUN/Creat Ratio 17.11 Ratio (12.00-20.00); Blood Urea Nitrogen 15.4 mg/dL (9.0-27.0); Carbon Dioxide 23.7 mmol/L (21.6-31.8); Chloride 107 mmol/L (96-109); Globulin 2.3 g/dL (1.6-3.3); Glucose 159 mg/dL (70-110); Potassium 4.2 mmol/L (3.5-5.5); Sodium 141 mmol/L (135-145); Total Bilirubin 0.3 mg/dL (0.3-1.2)
--- NOTE | 2024-07-30 13:23 | P.PN ---
Subjective Progress Note Date: 07/30/24 patient is 73-year-old lady with past medical history significant for MS, anxiety, depression who presented the ER for chest pain. Patient stated that she was all right 4 days back when started noticing chest pain that was central in location, pressure-like, rating to her left arm, no aggravating or relieving factor associated chest pain. There is no complaint of shortness of breath. There was no complaint of palpitation. There is no orthopnea or PND. Patient also was feeling more weaker than her normal self. Because of chest pain, patient was brought to the ER Initial lab work done in the ER showed WBC 9.7, hemoglobin 14.2, platelet count 253, sodium 137 potassium 4.2, BUN 19, creatinine 0.75, troponin 0.012 EKG done in the ER showed heart rate of 103, no ST segment elevation or depression seen, no T-wave inversions seen. Chest x-ray done in the ER showed no acute cardiopulmonary process Patient admitted to internal medicine service 07/28. Patient seen and examined. Currently n.p.o. going for stress test today 07/29. Patient seen examined. Dobutamine stress echo negative for any ischemia. UA done was suspicious for UTI, started Levaquin. Complaining of lethargic and weakness 07/30/2024. Patient seen and examined. States she is doing better. REVIEW OF SYSTEMS: CONSTITUTIONAL: No fever, no malaise,. CARDIOVASCULAR: No chest pain, no palpitations, no syncope. PULMONARY: No shortness of breath, no cough, GASTROINTESTINAL: No diarrhea, no nausea, no vomiting, no abdominal pain. NEUROLOGICAL: No headaches, no weakness, PHYSICAL EXAMINATION: GENERAL: The patient is alert and oriented x3, not in any acute distress. Well developed, well nourished. HEENT: Pupils are round and equally reacting to light. EOMI. No scleral icterus. No conjunctival pallor. Normocephalic, atraumatic. No pharyngeal erythema. No thyromegaly. CARDIOVASCULAR: S1 and S2 present. No murmurs, rubs, or gallops. PULMONARY: Chest is clear to auscultation, no wheezing or crackles. ABDOMEN: Soft, nontender, nondistended, normoactive bowel sounds. No palpable organomegaly. MUSCULOSKELETAL: No joint swelling or deformity. EXTREMITIES: No cyanosis, clubbing, or pedal edema. NEUROLOGICAL: Gross neurological examination did not reveal any focal deficits. SKIN: No rashes. Assessment and plan Chest pain, rule out acute coronary syndrome Hyperlipidemia UTI Depression Anxiety History of MS Monitor vital signs Monitor CBC Monitor CMP Continue telemetry monitoring dobutamine stress echo was negative for ischemia Currently on IV Rocephin Continue home meds PT OT recommend rehab Cardiology signed off Labs and medication were reviewed.. Continue same treatment. Continue with sym ptomatic treatment. Resume home medication. Monitor labs and vitals. DVT and GI prophylaxis. Further recommendations as per clinical course of the patient Dictation was produced using [employer] dictation software. please excuse any grammatical, word or spelling errors. Objective - Vital Signs Vital signs: Vital Signs Temp 98 F 07/30/24 07:25 Pulse 72 07/30/24 07:25 Resp 18 07/30/24 07:25 BP 114/64 07/30/24 07:25 Pulse Ox 97 07/30/24 07:25 FiO2 Intake & Output 07/29/24 07/30/24 07/30/24 18:59 06:59 18:59 Intake Total 560 Balance 560 Intake: Oral 560 Other: Voiding Method Bedside Commode Bedside Commode Diaper # Voids 2 3 # Bowel Movements 0 - Labs CBC & Chem 7: 07/30/24 04:47 07/30/24 04:47 Labs: Abnormal Lab Results - Last 24 Hours (Table) 07/30/24 07/30/24 Range/Units 04:47 04:47 RBC 3.65 L (4.10-5.20) X 10*6/uL Hgb 11.8 L (12.0-15.0) g/dL Hct 34.6 L (37.2-46.3) % MCH 32.3 H (27.0-32.0) pg Glucose 159 H (70-110) mg/dL Total Protein 6.0 L (6.2-8.2) g/dL Albumin 3.7 L (3.8-4.9) g/dL Microbiology - Last 24 Hours (Table) 07/28/24 22:45 Urine Culture - Preliminary Urine,Voided Gram Neg Bacilli
[2024-07-30] MEDS: LORazepam 0.5 MG TAB PO PRN (17:17)
[2024-07-31 03:12] VITALS: RESP 17
[2024-07-31 07:33] VITALS: BP 145/65; PULSE 73; TEMP 98.2
--- NOTE | 2024-07-31 13:04 | P.DS ---
Providers Date of admission: 07/26/24 20:47 Expected date of discharge: 07/31/24 Attending physician: Vero Montgomery Consults: 07/29/24 10:01 Consult Physician Routine Consulting Provider: Omid Mcnally Consult Reason/Comments: UTI Do you want consulting provider notified?: Yes Primary care physician: [facility] Course: Discharge diagnoses; Chest pain,acute coronary syndrome ruled out Hyperlipidemia UTI Depression Anxiety History of MS Hospital course; patient is 73-year-old lady with past medical history significant for MS, anxiety, depression who presented the ER for chest pain. Patient stated that she was all right 4 days back when started noticing chest pain that was central in location, pressure-like, rating to her left arm, no aggravating or relieving factor associated chest pain. There is no complaint of shortness of breath. There was no complaint of palpitation. There is no orthopnea or PND. Patient also was feeling more weaker than her normal self. Because of chest pain, patient was brought to the ER Initial lab work done in the ER showed WBC 9.7, hemoglobin 14.2, platelet count 253, sodium 137 potassium 4.2, BUN 19, creatinine 0.75, troponin 0.012 EKG done in the ER showed heart rate of 103, no ST segment elevation or depression seen, no T-wave inversions seen. Chest x-ray done in the ER showed no acute cardiopulmonary process Patient admitted to internal medicine service 07/28. Patient seen and examined. Currently n.p.o. going for stress test today 07/29. Patient seen examined. Dobutamine stress echo negative for any ischemia. UA done was suspicious for UTI, started Levaquin. Complaining of lethargic and weakness 07/30/2024. Patient seen and examined. States she is doing better. 07/31. Patient seen and examined. Being discharged on Ceftin. PHYSICAL EXAMINATION: GENERAL: The patient is alert and oriented x3, not in any acute distress. Well developed, well nourished. HEENT: Pupils are round and equally reacting to light. EOMI. No scleral icterus. No conjunctival pallor. Normocephalic, atraumatic. No pharyngeal erythema. No thyromegaly. CARDIOVASCULAR: S1 and S2 present. No murmurs, rubs, or gallops. PULMONARY: Chest is clear to auscultation, no wheezing or crackles. ABDOMEN: Soft, nontender, nondistended, normoactive bowel sounds. No palpable organomegaly. MUSCULOSKELETAL: No joint swelling or deformity. EXTREMITIES: No cyanosis, clubbing, or pedal edema. NEUROLOGICAL: Gross neurological examination did not reveal any focal deficits. SKIN: No rashes. Dictation was produced using [employer] dictation software. please excuse any grammatical, word or spelling errors. Patient Condition at Discharge: Fair Plan - Discharge Summary Discharge Rx Participant: No New Discharge Prescriptions: New LORazepam [Ativan] 0.5 mg PO TID PRN 3 Days #9 tab PRN Reason: Anxiety Continue Nortriptyline [Pamelor] 50 mg PO HS Pantoprazole Sodium [Protonix] 40 mg PO DAILY Mirtazapine 7.5 mg PO HS #30 tab Atorvastatin [Lipitor] 40 mg PO HS Aspirin EC [Ecotrin Low Dose] 81 mg PO DAILY Ondansetron Odt [Zofran ODT] 4 mg PO Q8HR PRN PRN Reason: Nausea And Vomiting Discontinued busPIRone HCl [Buspar] 20 mg PO BID #120 tab Discharge Medication List Pantoprazole Sodium [Protonix] 40 mg PO DAILY 06/16/24 [History] Mirtazapine 7.5 mg PO HS #30 tab 07/11/24 [Rx] Aspirin EC [Ecotrin Low Dose] 81 mg PO DAILY 07/26/24 [History] Atorvastatin [Lipitor] 40 mg PO HS 07/26/24 [History] Nortriptyline [Pamelor] 50 mg PO HS 07/26/24 [History] Ondansetron Odt [Zofran ODT] 4 mg PO Q8HR PRN 07/26/24 [History] LORazepam [Ativan] 0.5 mg PO TID PRN 3 Days #9 tab 07/31/24 [Rx] Follow up Appointment(s)/Referral(s): Brandie Child MD [Primary Care Provider] - 1-2 days Discharge/Stand Alone Forms: Area PCPs Discharge Disposition: TRANSFER TO SNF/ECF
--- NOTE | 2024-07-31 14:45 | P.PN ---
Subjective Progress Note Date: 07/30/24 Principal diagnosis: Reason for follow-up is urinary tract infection Patient is a 73-year-old female with a past medical history significant for fibromyalgia asthma osteomyelitis MS, presenting to the hospital for evaluation of chest pain patient was having significant burning of urine suprapubic discomfort with a positive UA concerning for symptomatic UTI. On today's evaluation that is 07/30/2024,the patient denies any fever or any chills, patient is breathing comfortably on room air, the patient denies chest pain shortness of breath and no significant cough, patient is tolerating some suprapubic discomfort and burning of urine no diarrhea. Patient white count is 8.05, creatinine 0.9 urine is growing gram-negative Objective - Vital Signs Vital signs: Vital Signs Temp 99 F 07/30/24 15:15 Pulse 75 07/30/24 15:15 Resp 16 07/30/24 15:15 BP 114/64 07/30/24 15:15 Pulse Ox 96 07/30/24 15:15 FiO2 Intake & Output 07/29/24 07/30/24 07/30/24 18:59 06:59 18:59 Intake Total 560 Balance 560 Intake: Oral 560 Other: Voiding Method Bedside Commode Bedside Commode Diaper # Voids 2 3 2 # Bowel Movements 0 - Exam GENERAL DESCRIPTION: An elderly female lying in bed in no distress RESPIRATORY SYSTEM: Unlabored breathing , decreased breath sounds at bases HEART: S1 S2 regular rate and rhythm , ABDOMEN: Soft , no tenderness EXTREMITIES: No edema feet - Labs CBC & Chem 7: 07/30/24 04:47 07/30/24 04:47 Labs: Abnormal Lab Results - Last 24 Hours (Table) 07/30/24 07/30/24 Range/Units 04:47 04:47 RBC 3.65 L (4.10-5.20) X 10*6/uL Hgb 11.8 L (12.0-15.0) g/dL Hct 34.6 L (37.2-46.3) % MCH 32.3 H (27.0-32.0) pg Glucose 159 H (70-110) mg/dL Total Protein 6.0 L (6.2-8.2) g/dL Albumin 3.7 L (3.8-4.9) g/dL Microbiology - Last 24 Hours (Table) 12/30/24 22:45 Urine Culture - Preliminary Urine,Voided Gram Neg Bacilli Assessment and Plan (1) UTI (urinary tract infection) Current Visit: Yes Status: Acute Code(s): N39.0 - URINARY TRACT INFECTION, SITE NOT SPECIFIED SNOMED Code(s): 04521901 Plan: 1patient with symptoms of suprapubic discomfort burning significantly positive UA concerning for UTI likely from enteric gram-negative pathogen with a recent history of diarrhea being a risk factor, patient has been concerned about bladder cancer as multiple family member has been diagnosed with it urine cytology has been requested and urine cultures currently pending. 2patient did have some improvement in her symptoms urine is growing gram- negative we will continue Rocephin 2 g daily while waiting for the culture to finalize Multiple question concern answered Dictation was produced using [employer] dictation software. please excuse any grammatical, word or spelling errors. Time with Patient: Less than 30
--- NOTE | 2024-07-31 14:46 | P.PN ---
Subjective Progress Note Date: 07/31/24 Principal diagnosis: Reason for follow-up is urinary tract infection Patient is a 73-year-old female with a past medical history significant for fibromyalgia asthma osteomyelitis MS, presenting to the hospital for evaluation of chest pain patient was having significant burning of urine suprapubic discomfort with a positive UA concerning for symptomatic UTI. On today's evaluation that is 07/31/2024,the patient remains to be afebrile, patient is on room air not requiring supplemental oxygen and denies any shortness of breath no chest pain or cough.Patient denies having any nausea or vomiting, no abdominal discomfort has slightly decreased in intensity no diarrhea. No new lab has been repeated today urine has been finalized with an E. coli sensitive pathogen Objective - Vital Signs Vital signs: Vital Signs Temp 98.2 F 07/31/24 07:00 Pulse 73 07/31/24 07:00 Resp 17 07/31/24 07:00 BP 145/65 07/31/24 07:00 Pulse Ox 96 07/31/24 07:00 FiO2 Intake & Output 07/30/24 07/31/24 07/31/24 18:59 06:59 18:59 Intake Total 118 Balance 118 Intake: Oral 118 Other: Voiding Method Diaper Bedside Commode Bedside Commode # Voids 2 3 - Exam GENERAL DESCRIPTION: An elderly female lying in bed in no distress RESPIRATORY SYSTEM: Unlabored breathing , decreased breath sounds at bases HEART: S1 S2 regular rate and rhythm , ABDOMEN: Soft , no tenderness EXTREMITIES: No edema feet - Labs CBC & Chem 7: 07/30/24 04:47 07/30/24 04:47 Labs: Microbiology - Last 24 Hours (Table) 07/28/24 22:45 Urine Culture - Final Urine,Voided Escherichia coli Assessment and Plan (1) UTI (urinary tract infection) Current Visit: Yes Status: Acute Code(s): N39.0 - URINARY TRACT INFECTION, SITE NOT SPECIFIED SNOMED Code(s): 38961730 Plan: 1patient with symptoms of suprapubic discomfort burning significantly positive UA concerning for UTI likely from enteric gram-negative pathogen with a recent history of diarrhea being a risk factor, patient has been concerned about bladder cancer as multiple family member has been diagnosed with it urine cytology has been requested and urine cultures currently pending. 2patient did have some improvement in her symptoms urine is growing E. coli that is a sensitive pathogen she will finish therapy with oral Ceftin prescription entered into her discharge instruction discussed with admitting physician Dictation was produced using [employer] software. please excuse any grammatical, word or spelling errors. Time with Patient: Less than 30
== END 2024-07-31 15:48 ==
LOC: EC 12:43 → 6NMEDSUR 20:47
PROVIDERS: ADMIT Hospitalist; ATTEND Hospitalist
DX: R07.2 Precordial pain (principal); N39.0 Urinary tract infection, site not specified; B96.20 Unspecified Escherichia coli [E. coli] as the cause of diseases classified elsewhere; G35 Multiple sclerosis; M79.602 Pain in left arm; J45.909 Unspecified asthma, uncomplicated; E78.5 Hyperlipidemia, unspecified; M79.7 Fibromyalgia; F41.9 Anxiety disorder, unspecified; F32.A Depression, unspecified; R00.0 Tachycardia, unspecified; R19.7 Diarrhea, unspecified; F17.200 Nicotine dependence, unspecified, uncomplicated; Z79.82 Long term (current) use of aspirin; Z79.899 Other long term (current) drug therapy; Z88.0 Allergy status to penicillin; Z88.1 Allergy status to other antibiotic agents; Z88.4 Allergy status to anesthetic agent; Z88.5 Allergy status to narcotic agent; Z91.041 Radiographic dye allergy status; Z88.8 Allergy status to other drugs, medicaments and biological substances; Z91.048 Other nonmedicinal substance allergy status; Z87.39 Personal history of other diseases of the musculoskeletal system and connective tissue
CPT/HCPCS: 96376 ×6; 96365; 96366; 96367; 96375; 99285; 36415; 93005; 93351; 97162; 97166; 80061; 80053 ×3; 83735; 84484 ×2; 85025 ×3; 85610; 85730; 81001; 87086; 87077; 87186; 71046; G0378 ×6; J2060; J1250; J2405 ×6; J1956; J0696 ×2; J0461; J1885 ×6

== ENCOUNTER → 2024-10-10 | Outpatient (CLI) | payer MEDICARE, OTHER ==
[2024-10-10 18:05] LABS: HGB 14.1 g/dL (12.0-15.0); MCH 31.8 pg (27.0-32.0); MCHC 32.8 g/dL (32.0-37.0); MCV 97.1 FL (80.0-97.0); Mean Platelet Volume 10.5 FL (9.5-12.2); NRBC Per 100 WBC 0 X 10*3/uL (0.00-0.01); Platelet Count 303 X 10*3/uL (140-440); RBC 4.43 X 10*6/uL (4.10-5.20); RDW 14.1 % (11.5-14.5); WBC 7.98 X 10*3/uL (4.50-10.00)
[2024-10-10 18:06] LABS: Basophils # (A) 0.05 X 10*3/uL (0.00-0.10); Basophils % (A) 0.6 %; Eosinophils # (A) 0.09 X 10*3/uL (0.04-0.35); Eosinophils % (A) 1.1 %; Lymphocytes # (A) 3.61 X 10*3/uL (0.90-5.00); Lymphocytes % (A) 45.2 %; Monocytes # (A) 0.64 X 10*3/uL (0.20-1.00); Neutrophils # (A) 3.58 X 10*3/uL (1.80-7.70)
[2024-10-10 18:37] LABS: ALT 23 U/L (8-44); AST 29 U/L (13-35); Albumin 4.5 g/dL (3.8-4.9); Albumin/Globulin Ratio 1.61 Ratio (1.60-3.17); Alkaline Phosphatase 91 U/L (41-126); BUN/Creat Ratio 18.75 Ratio (12.00-20.00); Calcium 9.7 mg/dL (8.7-10.3); Carbon Dioxide 22.2 mmol/L (21.6-31.8); Chloride 105 mmol/L (96-109); Chol/HDL Ratio 3.57 Ratio; Globulin 2.8 g/dL (1.6-3.3); Glucose 101 mg/dL (70-110); Potassium 4.6 mmol/L (3.5-5.5); Sodium 140 mmol/L (135-145); Total Bilirubin 0.5 mg/dL (0.3-1.2); Total Protein 7.3 g/dL (6.2-8.2)
== END | disposition home or self-care (01) ==
LOC: LABWHC1 12:15
PROVIDERS: ATTEND Family Medicine
DX: G47.00 Insomnia, unspecified (principal)
CPT/HCPCS: 36415; 80053; 80061; 82306; 84443; 85025

== ENCOUNTER → 2024-10-10 | Outpatient (CLI) | payer MEDICARE, OTHER ==
--- NOTE | 2024-10-10 11:47 | MM ---
Reason for Exam: Clinical finding. Last mammogram was performed 5 year(s) and 2 month(s) ago. Patient History: Menarche at age 15. First Full-Term at age 28. Left ovary removed at age 48. Right ovary removed at age 48. Hysterectomy at age 42. Postmenopausal. 04/2005, Benign Excisional Biopsy on the left side. Risk Values: Yusra 5 year model risk: 2.3%. NCI Lifetime model risk: 6.0%. Tissue Density: The breasts are heterogeneously dense, which may obscure small masses. Findings: Analyzed By CAD. Chronic nodularity seen left breast. No evidence for mass or distortion. No suspicious microcalcifications. Overall Assessment: Incomplete: need additional imaging evaluation, BI-RAD 0 Management: Diagnostic Breast Ultrasound of the left breast. . Results were given to the patient verbally at the time of exam. Patient should continue monthly self-breast exams. A clinical breast exam by your physician is recommended on an annual basis. This exam should not preclude additional follow-up of suspicious palpable abnormalities. Note on Yusra scores and lifetime risk: 1. A Yusra score greater than 3% is considered moderate risk. If this is the case, consider specialist referral to assess eligibility for a risk reducing agent. 2. If overall lifetime risk for the development of breast cancer is 20% or higher, the patient may qualify for future screening with alternating mammogram and breast MRI. [facility], , 10/10/2024 11:44 AM. Electronically signed and approved by: Dawson Carrington M.D. Radiologis
--- NOTE | 2024-10-10 12:42 | USB ---
Reason for Exam: Clinical finding. Indicated Problems: Pain of the left side. Patient History: Menarche at age 15. First Full-Term at age 28. Left ovary removed at age 48. Right ovary removed at age 48. Hysterectomy at age 42. Postmenopausal. 04/2005, Benign Excisional Biopsy on the left side. Risk Values: Yusra 5 year model risk: 2.3%. NCI Lifetime model risk: 6.0%. Technique: Method: Targeted. Doppler: Color. Patient Position: Supine. Prior Study Comparison: 11/03/2016 Screening Mammogram, [facility]. 01/03/2018 Bilateral Screening Mammogram, [facility]. 08/13/2019 Bilateral Diagnostic Mammogram, [facility]. Findings: The area of palpable concern of the left breast, the axilla of the left breast and the retroareolar of the left breast were scanned. There is a simple cyst noted at the left 2:00 position 10 cm from the nipple measuring 6 x 4 mm. No solid masses identified. This is unchanged dating back to a previous study. Overall Assessment: Benign, BI-RAD 2 Management: Screening Mammogram of both breasts in 1 year. A clinical breast exam by your physician is recommended on an annual basis and results should be correlated with mammographic findings. This exam should not preclude additional follow-up of suspicious palpable abnormalities. Results were given to the patient verbally at the time of exam. [facility], , 10/10/2024 12:02 PM. Electronically signed and approved by: Dawson Carrington M.D. Radiologis
== END | disposition home or self-care (01) ==
LOC: RADMAMWWP 11:20
PROVIDERS: ATTEND Surgery
DX: N60.02 Solitary cyst of left breast (principal); R92.333 Mammographic heterogeneous density, bilateral breasts; Z78.0 Asymptomatic menopausal state
CPT/HCPCS: 77066; 76642; G0279; 77062

== ENCOUNTER → 2024-12-11 | Outpatient (CLI) | payer OTHER ==
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
[2024-12-11 11:42] VITALS: BP 111/67; PULSE 68; RESP 17; TEMP 98.1
== END ==
LOC: WWCWWP 11:12
PROVIDERS: ATTEND Surgery
DX: N60.19 Diffuse cystic mastopathy of unspecified breast (principal); N64.4 Mastodynia; N62 Hypertrophy of breast; F17.210 Nicotine dependence, cigarettes, uncomplicated; Z88.0 Allergy status to penicillin; Z88.1 Allergy status to other antibiotic agents; Z88.5 Allergy status to narcotic agent; Z88.8 Allergy status to other drugs, medicaments and biological substances; Z91.041 Radiographic dye allergy status; Z91.018 Allergy to other foods